=== PATIENT | female | born 1930 | race Caucasian/White ===

== ENCOUNTER 2016-09-19 | Outpatient (CLI) | payer MEDICARE, MEDICAID | END 2016-09-19 14:12 | disposition short-term general hospital (02) | CPT/HCPCS: A0170; A0425; A0426; A0429 ==

== ENCOUNTER 2016-09-19 | Outpatient (CLI) | payer MEDICAID, MEDICARE | END 2016-09-19 06:42 | disposition critical access hospital (66) | DX: M25.551 Pain in right hip (principal) ==

== ENCOUNTER 2016-09-19 06:52 | Emergency (ER) | payer MEDICARE ==
[2016-09-19] MEDS ORDERED: SODIUM CHLORIDE 0.9% 500 ML IV ONE ×2 (07:59→11:28)
[2016-09-19] MEDS ORDERED: ADENOSINE 6 MG/2 ML VIAL IVP ONE ×2 (08:56→08:57)
[2016-09-19] MEDS ORDERED: diltiaZEM INJ 5 MG/ML VIAL ONE ×2 (09:05→10:01)
[2016-09-19] MEDS ORDERED: diltiaZEM INJ 5 MG/ML VIAL IVP STA ×2 (09:09→09:58)
[2016-09-19] MEDS ORDERED: KETOROLAC 60 MG/2 ML VIAL IVP STA (09:25)
[2016-09-19] MEDS ORDERED: LORazepam 2 MG/ML SYRINGE IVP STA ×3 (09:25→13:46)
[2016-09-19] MEDS ORDERED: ADENOSINE 6 MG/2 ML VIAL IVP STA (09:26)
[2016-09-19] MEDS ORDERED: KETOROLAC 30 MG/ML VIAL ONE (09:31)
[2016-09-19] MEDS ORDERED: LORazepam 2 MG/ML SYRINGE ONE ×2 (09:31→13:37)
[2016-09-19] MEDS ORDERED: diltiaZEM INJ 125 MG in DEXTROSE 5% 100 ML IV STA (11:28)
== END 2016-09-19 14:17 | disposition short-term general hospital (02) ==
DX: I48.91 Unspecified atrial fibrillation (principal); S72.001A Fracture of unspecified part of neck of right femur, initial encounter for closed fracture; X58.XXXA Exposure to other specified factors, initial encounter; M79.7 Fibromyalgia
CPT/HCPCS: 36415; 51702; 71020; 73502; 80053; 81001; 83605; 83690; 84484; 85025; 87040; 93005; 96361; 96365; 96366; 96375; 96376; 99285; J0153; J2060

== ENCOUNTER 2016-11-28 03:28 | Outpatient (CLI) | payer MEDICARE, MEDICAID | END 2016-11-28 23:59 | disposition critical access hospital (66) | DX: R42 Dizziness and giddiness (principal); R68.84 Jaw pain | CPT/HCPCS: A0425; A0429 ==

== ENCOUNTER 2016-11-28 03:37 | Emergency (ER) | payer MEDICARE, MEDICAID ==
[2016-11-28] MEDS ORDERED: MECLIZINE 12.5 MG TABLET PO STA (04:10)
[2016-11-28] MEDS ORDERED: MECLIZINE 12.5 MG TABLET PO ONE (04:13)
[2016-11-28] MEDS ORDERED: IOPAMIDOL-300 100 ML VIAL IVP ONE (06:15)
== END 2016-11-28 07:58 | disposition home or self-care (01) ==
DX: R42 Dizziness and giddiness (principal); I71.4 Abdominal aortic aneurysm, without rupture; I48.91 Unspecified atrial fibrillation; M06.9 Rheumatoid arthritis, unspecified; Z79.82 Long term (current) use of aspirin
CPT/HCPCS: 36415; 70450; 70496; 70498; 80048; 81001; 84484; 85025; 93005; 93010; 99284; 99285; A9270; Q9967

== ENCOUNTER 2017-01-18 10:56 | Emergency (ER) | payer MEDICARE, MEDICAID ==
--- NOTE | 2017-01-18 11:34 | ED Physician Documentation ---
PD HPI HEAD INJURY - Stated complaint Stated Complaint: GLF/FACE INJ - Chief complaint Chief Complaint: Trauma Hd/Nk - History obtained from History obtained from: Patient (she says her right eyebrown lac to clean), Family - History of Present Illness Mechanism of head injury: Fell (she says she does not like her walker nor cane, she stumbled and did not catch herself from falling and struck right eyebrow area on edge of furniture. EMS arrived and patient was fully alert.) Where head injury occurred: Home Location of injury: Right, Front (lateral eyebrow) Quality of pain: No: Pain, Throbbing Associated symptoms: No: LOC, AMS, Nausea / vomiting, Paresthesias Symptoms improve with: Rest Symptoms worsen with: No: Palpation, Movement Contributing factors: No: Anticoagulated, Intoxicated Similar symptoms before: Has not had sx before Recently seen: Not recently seen Review of Systems Constitutional: denies: Fever, Chills Nose: denies: Rhinorrhea / runny nose, Congestion Throat: denies: Sore throat Cardiac: denies: Chest pain / pressure Respiratory: denies: Cough GI: denies: Abdominal Pain, Vomiting, Diarrhea Skin: reports: Laceration (s) (right eyebrow, 1.8 cm laceration along skin lineds.). denies: Abrasion (s) Musculoskeletal: denies: Neck pain, Back pain Neurologic: denies: Altered mental status, Headache Endocrine: denies: Easy bruising / bleeding PD PAST MEDICAL HISTORY - Past Medical History Past Medical History: Yes Cardiovascular: Atrial fibrillation, Arrhythmia Neuro: Other Musculoskeletal: Fibromyalgia, Rheumatoid arthritis - Past Surgical History Past Surgical History: Yes Ortho: Hip replacement - Present Medications Home Medications: Ambulatory Orders Medication Instructions Recorded Confirmed Acetaminophen 2 tab PO Q6HR PRN 11/28/16 01/18/17 Amiodarone HCl 200 mg PO BID 11/28/16 01/18/17 Ascorbic Acid 1 tab PO DAILY 11/28/16 01/18/17 Aspirin 1 tab PO DAILY 11/28/16 01/18/17 Bisacodyl Supp [Dulcolax Supp] 10 mg RI DAILY PRN 11/28/16 01/18/17 Cholecalciferol (Vitamin D3) 1 tab PO DAILY 11/28/16 01/18/17 [Vitamin D3] Magnesium Hydroxide [Milk of 30 ml PO DAILY PRN 11/28/16 01/18/17 Magnesia] Meclizine [Antivert] 25 mg PO Q6H PRN #20 tablet 11/28/16 01/18/17 Metoprolol Tartrate 12.5 mg PO BID 11/28/16 01/18/17 Vitamin B Complex 1 cap PO DAILY 11/28/16 01/18/17 - Allergies Allergies/Adverse Reactions: Allergies Allergy/AdvReac Type Severity Reaction Status Date / Time No Known Drug Allergies Allergy Verified 01/18/17 11:10 - Social History Does the pt smoke?: No Smoking Status: Never smoker Does the pt drink ETOH?: No Does the pt have substance abuse?: No - Family History Family history: reports: Non contributory - Immunizations Immunizations are current?: No Immunizations: No immun - POLST Patient has POLST: No PD ED PE NORMAL - Vitals Vital signs reviewed: Yes - General General: Alert and oriented X 3, No acute distress, Well developed/nourished - HEENT HEENT: PERRL, EOMI, Pharynx benign, Dentition benign, Other (right lateral eyebrow with 1.8 cm laceration with edges apart and mild bleeding. eye appears normal. ) - Neck Neck: Supple, no meningeal sign, No bony TTP, No adenopathy - Extremities Extremities: No edema, No calf tenderness / cord - Neuro Neuro: refractory repairer 2-12 intact, No motor deficit, No sensory deficit, Normal speech - Psych Psych: Normal mood, Normal affect Results - Vitals Vitals: Vital Signs - 24 hr 01/18/17 01/18/17 11:03 13:16 Temperature 36.4 C L Heart Rate 59 L 54 L Respiratory 18 18 Rate Blood Pressure 157/72 H 148/51 H O2 Saturation 96 96 Oxygen O2 Source Room air Procedures - Laceration (location) right lateral eyebrow Length in cm: 1.8 Wound type: Linear, Into subcut fat, Clean Neurovascular status: Sensory intact, Motor intact, Vascular intact Anesthesia: Lidocaine 1% with epi Wound Preparation: Irrigated copiously NS. No: FB identified Deep layer closure: Vicryl Skin layer closure: Running, Size #-0 - enter number (5), Sutures - enter # (5) Other: Patient tolerated well, No complications, Neurovascular intact, Tetanus UTD Complexity: Simple PD MEDICAL DECISION MAKING - ED course Complexity details: considered differential (no concussive smymptoms. Not on blood thinners. Sutures of right lateral eyebrow area. She is still looking good.), d/w patient, d/w family (daughter and son-in-law, who wanted info about getting care for patient during day at times as they are having to wath) Departure - Departure Disposition: 01 Home, Self Care Clinical Impression: Fall from slip, trip, or stumble Qualifiers: Encounter type: initial encounter Qualified Code(s): W01.0XXA - Fall on same level from slipping, tripping and stumbling without subsequent striking against object, initial encounter Laceration of eyebrow, right Qualifiers: Encounter type: initial encounter Qualified Code(s): S01.111A - Laceration without foreign body of right eyelid and periocular area, initial encounter Condition: Stable Record reviewed to determine appropriate education?: Yes Instructions: ED Laceration Facial Sutr Tape Follow-Up: Sanjeev Mcallister MD [Primary Care Provider] - Comments: It is okay to wash and shower. Clean off the wound twice a day with soap and water, or peroxide and water. Apply some antibiotic ointment to it to keep it moist. Also to watch for signs of infection such as purulence, redness or increasing pain. Return to your primary care or the ER at the specified time for suture removal. Suture removal one week. Water Treatment Operator gave information regarding home help resources if you feel they would be helpful. At least one of your blood pressure readings in the ER today was elevated above the normal level. If you have diagnosed high blood pressure in the past, please be sure you are taking your BP medications and eating low salt diet. If you do not have know high BP, then being high today does not mean it is a snf issue. It might be reactively high to the situation that has you here. You should follow up with your primary care to have the blood pressure checked again in the next few days/week or so to see if it is persistently high. If so, then you may need medication or changes in diet/lifestyle to treat it. Discharge Date/Time: 01/18/17 13:44
[2017-01-18 13:16] VITALS: BP 148/51
== END 2017-01-18 13:44 | disposition home or self-care (01) ==
LOC: ED 10:56
DX: S01.111A Laceration without foreign body of right eyelid and periocular area, initial encounter (principal); W01.198A Fall on same level from slipping, tripping and stumbling with subsequent striking against other object, initial encounter; Y92.019 Unspecified place in single-family (private) house as the place of occurrence of the external cause; I48.91 Unspecified atrial fibrillation; M79.7 Fibromyalgia; M06.9 Rheumatoid arthritis, unspecified; Z79.82 Long term (current) use of aspirin
CPT/HCPCS: 12011; 99282; 99283

== ENCOUNTER 2017-04-28 22:26 | Outpatient (CLI) | payer MEDICARE, MEDICAID | END 2017-04-28 22:27 | disposition critical access hospital (66) | LOC: EMS 22:26 | PROVIDERS: ATTEND Surgery | DX: R42 Dizziness and giddiness (principal) | CPT/HCPCS: A0425; A0429 ==

== ENCOUNTER 2017-04-28 22:36 | Emergency (ER) | payer MEDICARE, MEDICAID ==
[2017-04-28] MEDS ORDERED: DEXAMETHASONE 10 MG/ML VIAL PO STA (23:06)
[2017-04-28] MEDS ORDERED: MECLIZINE 12.5 MG TABLET PO STA (23:06)
[2017-04-28] MEDS ORDERED: DEXAMETHASONE 10 MG/ML VIAL ONE (23:15)
[2017-04-28] MEDS ORDERED: MECLIZINE 12.5 MG TABLET PO ONE (23:15)
[2017-04-28 23:25] LABS: BASOPHILS % (AUTO) 0.7 %; EOSINOPHILS # (AUTO) 0.1 10^3/uL (0.0-0.7); EOSINOPHILS % (AUTO) 2.5 %; HCT - HEMATOCRIT 35.6 % (37.0-47.0); HGB - HEMOGLOBIN 11.7 g/dL (12.0-16.0); LYMPHOCYTES % (AUTO) 16.6 %; MEAN CORPUSCULAR HEMOGLOBIN 26.3 pg (27.0-31.0); MEAN CORPUSCULAR VOLUME 79.7 fL (81.0-99.0); MEAN PLATELET VOLUME 8.8 fL (7.9-10.8); MONOCYTES # (AUTO) 0.7 10^3/uL (0.0-1.0); MONOCYTES % (AUTO) 11.2 %; NEUTROPHILS # (AUTO) 4.1 10^3/uL (1.5-6.6); RED BLOOD COUNT 4.46 10^6/uL (4.20-5.40); RED CELL DISTRIBUTION WIDTH 17.2 % (12.0-15.0)
[2017-04-28 23:35] LABS: ALBUMIN/GLOBULIN RATIO 1.2 (1.0-2.2); BILIRUBIN,TOTAL 0.4 mg/dL (0.2-1.0); CALCIUM 9.1 mg/dL (8.5-10.3); CREATININE 0.8 mg/dL (0.4-1.0); MAGNESIUM 2.2 mg/dL (1.7-2.8); POTASSIUM 4.7 mmol/L (3.5-5.0); TOTAL PROTEIN 6.9 g/dL (6.7-8.2)
[2017-04-29 00:29] LABS: BILIRUBIN,URINE NEGATIVE (NEGATIVE)
[2017-04-29 00:30] LABS: UA CHARGE (STRIP ONLY) YES; UR CULTURE IF IND NOT INDICATED
--- NOTE | 2017-04-29 00:42 | ED Physician Documentation ---
PD HPI URI - Stated complaint Stated Complaint: dizzy - Chief complaint Chief Complaint: Cardiac - History obtained from History obtained from: Patient, Family, EMS - History of Present Illness Timing - onset: Yesterday Timing duration: Minutes Timing details: Abrupt onset, Intermittant (onset of dizziness when got up from sitting yesterday, worse with looking up and head movement. Improved some during day and now had dizziness again when got up this evening. Had feeling of vertigo/room spinning, worse with head movement/body position, better with lying still. No focal weakness, no visual loss; able to talk clearly and not noted ataxic on movements.) Associated symptoms: Nasal congestion, Rhinorrhea (for several days), NVD (some nausea with the dizziness but no vomiting.). No: Fever, Sore throat, Dry cough Contributing factors: No: Sick contact, Travel, Immunocompromised Improves by: Rest Worsened by: Activity Similar symptoms before: Has not had sx before Recently seen: Clinic (had some dysuria and seen in office initially Rx with Macrobid, without improvement, then changed to Bactrim twice daily 3 days ago and feeling better.) Review of Systems Constitutional: denies: Fever, Chills Eyes: denies: Loss of vision, Decreased vision Ears: denies: Loss of hearing, Tinnitus/ringing Nose: reports: Rhinorrhea / runny nose, Congestion Throat: denies: Sore throat Respiratory: denies: Cough Skin: denies: Rash, Lesions Neurologic: denies: Focal weakness, Numbness, Difficulty speaking, Near syncope , Headache, Head injury PD PAST MEDICAL HISTORY - Past Medical History Cardiovascular: Atrial fibrillation, Arrhythmia Neuro: None, Other Musculoskeletal: Fibromyalgia, Rheumatoid arthritis - Past Surgical History Past Surgical History: Yes Ortho: Hip replacement - Present Medications Home Medications: Ambulatory Orders Medication Instructions Recorded Confirmed Acetaminophen 2 tab PO Q6HR PRN 11/28/16 01/18/17 Amiodarone HCl 200 mg PO BID 11/28/16 01/18/17 Ascorbic Acid 1 tab PO DAILY 11/28/16 01/18/17 Aspirin 1 tab PO DAILY 11/28/16 01/18/17 Bisacodyl Supp [Dulcolax Supp] 10 mg HI DAILY PRN 11/28/16 01/18/17 Cholecalciferol (Vitamin D3) 1 tab PO DAILY 11/28/16 01/18/17 [Vitamin D3] Magnesium Hydroxide [Milk of 30 ml PO DAILY PRN 11/28/16 01/18/17 Magnesia] Meclizine [Antivert] 25 mg PO Q6H PRN #20 tablet 11/28/16 01/18/17 Metoprolol Tartrate 12.5 mg PO BID 11/28/16 01/18/17 Vitamin B Complex 1 cap PO DAILY 11/28/16 01/18/17 Dexamethasone [Decadron] 4 mg PO DAILY #5 tablet 04/29/17 Meclizine [Antivert] 12.5 mg PO Q6H PRN #20 tablet 04/29/17 - Allergies Allergies/Adverse Reactions: Allergies Allergy/AdvReac Type Severity Reaction Status Date / Time No Known Drug Allergies Allergy Verified 01/18/17 11:10 - Social History Does the pt smoke?: No Smoking Status: Never smoker Does the pt drink ETOH?: No Does the pt have substance abuse?: No - Family History Family history: reports: Non contributory - Immunizations Immunizations are current?: No Immunizations: No immun - POLST Patient has POLST: No PD ED PE NORMAL - Vitals Vital signs reviewed: Yes - General General: Alert and oriented X 3, No acute distress, Well developed/nourished - HEENT HEENT: PERRL, EOMI (with some nystagmus to the left. ), Ears normal, Pharynx benign - Neck Neck: Supple, no meningeal sign, No adenopathy, No JVD, No bruit - Cardiac Cardiac: RRR, No murmur - Respiratory Respiratory: Clear bilaterally - Abdomen Abdomen: Soft, Non tender - Female Female : Deferred - Rectal Rectal: Deferred - Back Back: No CVA TTP - Derm Derm: Normal color, Warm and dry - Extremities Extremities: No tenderness to palpate, Normal ROM s pain, No edema, No calf tenderness / cord - Neuro Neuro: Alert and oriented X 3, fire pot operator 2-12 intact, No motor deficit, No sensory deficit, Normal speech, Other - Psych Psych: Normal mood, Normal affect Results - Vitals Vitals: Vital Signs - 24 hr 04/28/17 04/29/17 22:41 00:58 Temperature 36.9 C Heart Rate 67 63 Respiratory 16 16 Rate Blood Pressure 180/82 H 161/74 H O2 Saturation 98 98 Oxygen O2 Source Room air - Labs Labs: Laboratory Tests 04/28/17 04/28/17 04/29/17 23:16 23:16 00:16 WBC 6.0 RBC 4.46 Hgb 11.7 L Hct 35.6 L MCV 79.7 L MCH 26.3 L MCHC 33.0 RDW 17.2 H Plt Count 152 MPV 8.8 Neut # 4.1 Lymph # 1.0 L [place] # 0.7 Eos # 0.1 Baso # 0.0 Absolute Nucleated RBC 0.00 Nucleated RBCs 0.0 Sodium 138 Potassium 4.7 Chloride 101 Carbon Dioxide 29 Anion Gap 8.0 BUN 40 H Creatinine 0.8 Estimated GFR (MDRD) 68 L Glucose 109 H Calcium 9.1 Magnesium 2.2 Total Bilirubin 0.4 AST 27 ALT 26 Alkaline Phosphatase 50 Total Protein 6.9 Albumin 3.8 Globulin 3.1 Albumin/Globulin Ratio 1.2 Lipase 49 Urine Color YELLOW Urine Clarity CLEAR Urine pH 6.0 Ur Specific [place] 1.015 Urine Protein NEGATIVE Urine Glucose (UA) NEGATIVE Urine Ketones NEGATIVE Urine Occult Blood NEGATIVE Urine Nitrite NEGATIVE Urine Bilirubin NEGATIVE Urine Urobilinogen 0.2 (NORMAL) Ur Leukocyte Esterase NEGATIVE Ur Microscopic Review NOT INDICATED Urine Culture Comments NOT INDICATED PD MEDICAL DECISION MAKING - ED course Complexity details: considered differential (seems like peripheral vertigo with recent URI or allergy symptoms. No focal other weakness nor neurol symptoms.), d /w patient Departure - Departure Disposition: 01 Home, Self Care Clinical Impression: Vertigo URI (upper respiratory infection) Qualifiers: URI type: unspecified URI Qualified Code(s): J06.9 - Acute upper respiratory infection, unspecified Condition: Poor Instructions: ED Vertigo Unspecified Prescriptions: Meclizine [Antivert] 12.5 mg PO Q6H PRN #20 tablet PRN Reason: Vertigo Dexamethasone [Decadron] 4 mg PO DAILY #5 tablet Comments: Continue usual medications. Your urine looks clear so the Bactrim seems to be working. Use meclizine as needed for the dizziness. I think the dizziness is coming from congestion that you are having an effect on the inner ear. For your shoulder pain you have been having, use Tylenol 500 mg twice daily regularly. Follow-up with your primary care over the next few days. Discharge Date/Time: 04/29/17 00:59
[2017-04-29 00:58] VITALS: BP 161/74
== END 2017-04-29 00:59 | disposition home or self-care (01) ==
LOC: EDUNIT# → ED 22:36
DX: R42 Dizziness and giddiness (principal); J06.9 Acute upper respiratory infection, unspecified; I48.91 Unspecified atrial fibrillation; I49.9 Cardiac arrhythmia, unspecified; M79.7 Fibromyalgia; M06.9 Rheumatoid arthritis, unspecified; Z79.82 Long term (current) use of aspirin
CPT/HCPCS: 36415; 80053; 81003; 83690; 83735; 85025; 93005; 99283; A9270; 81001; 87086

== ENCOUNTER 2017-04-29 03:56 | Outpatient (CLI) | payer MEDICARE, MEDICAID | END 2017-04-29 03:57 | disposition EMS.NT | LOC: EMS 03:56 | PROVIDERS: ATTEND Surgery | DX: R42 Dizziness and giddiness (principal); W18.39XA Other fall on same level, initial encounter; Y92.003 Bedroom of unspecified non-institutional (private) residence as the place of occurrence of the external cause ==

== ENCOUNTER 2017-05-24 14:06 | Outpatient (CLI) | payer MEDICARE, MEDICAID ==
--- NOTE | 2017-05-25 08:46 | XRAY Report ---
TWO-VIEW CHEST: 05/24/2017 CLINICAL INDICATION: Upper respiratory infection. FINDINGS: Frontal and lateral views of the chest are compared to previous film of 09/19/2016. The c ardiac silhouette is mildly enlarged. A small left effusion is present, new from previous. No focal infiltrate or pneumothorax is seen. IMPRESSION: SMALL LEFT PLEURAL EFFUSION, NEW FROM PREVIOUS. JOB #: [id number] EXT JOB #:[id number]
== END 2017-05-24 14:07 | disposition home or self-care (01) ==
LOC: DI.N 14:06
PROVIDERS: ATTEND Nurse Practitioner Gerontology
DX: J90 Pleural effusion, not elsewhere classified (principal)
CPT/HCPCS: 71020

== ENCOUNTER 2017-09-13 11:23 | Emergency (ER) | payer MEDICARE, MEDICAID ==
[2017-09-13] MEDS ORDERED: OXYMETAZOLINE NASAL SPRAY NAS STA (11:47)
[2017-09-13] MEDS ORDERED: MECLIZINE 12.5 MG TABLET PO STA (11:47)
[2017-09-13] MEDS ORDERED: LIDOCAINE PATCH 5% TOP STA (11:49)
[2017-09-13] MEDS ORDERED: ACETAMINOPHEN 325 MG TABLET PO STA (11:49)
--- NOTE | 2017-09-13 11:53 | ED Physician Documentation ---
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 and pt advised to fup PMD for vascular referral (per daughter hasnt happened) a few weeks ago she grabbed something to prevent fall and inuured her right shoulder - it is still ruised and swollen and painful to move and now she also has nasal and chest congestion and generally feels ill which seems to be the reason she came in today denies JASON denies CP denies AP no NVD taking her meds PD PAST MEDICAL HISTORY - Past Medical History Past Medical History: Yes Cardiovascular: Atrial fibrillation, Arrhythmia Neuro: None, Other Musculoskeletal: Fibromyalgia, Rheumatoid arthritis - Past Surgical History Past Surgical History: Yes Ortho: Hip replacement - Present Medications Home Medications: Ambulatory Orders Medication Instructions Recorded Confirmed Acetaminophen 2 tab PO Q6HR PRN 11/28/16 01/18/17 Amiodarone HCl 200 mg PO BID 11/28/16 01/18/17 Ascorbic Acid 1 tab PO DAILY 11/28/16 01/18/17 Aspirin 1 tab PO DAILY 11/28/16 01/18/17 Bisacodyl Supp [Dulcolax Supp] 10 mg AL DAILY PRN 11/28/16 01/18/17 Cholecalciferol (Vitamin D3) 1 tab PO DAILY 11/28/16 01/18/17 [Vitamin D3] Magnesium Hydroxide [Milk of 30 ml PO DAILY PRN 11/28/16 01/18/17 Magnesia] Meclizine [Antivert] 25 mg PO Q6H PRN #20 tablet 11/28/16 01/18/17 Metoprolol Tartrate 12.5 mg PO BID 11/28/16 01/18/17 Vitamin B Complex 1 cap PO DAILY 11/28/16 01/18/17 Fluticasone [Flonase] 1 sprays JACOB BID PRN #1 bottle 09/13/17 Lidocaine Patch 5% [Lidoderm Patch] 1 each TOP DAILY PRN #10 patch 09/13/17 guaiFENesin/DEXTROMETHORPHAN 10 ml PO Q6H PRN #120 ml 09/13/17 [Robitussin Dm] - Allergies Allergies/Adverse Reactions: Allergies Allergy/AdvReac Type Severity Reaction Status Date / Time No Known Drug Allergies Allergy Verified 01/18/17 11:10 - Social History Does the pt smoke?: No Smoking Status: Never smoker Does the pt drink ETOH?: No Does the pt have substance abuse?: No - Immunizations Immunizations are current?: No Immunizations: No immun - POLST Patient has POLST: No PD ED PE NORMAL - Vitals Vital signs reviewed: Yes - General General: Alert and oriented X 3 - HEENT HEENT: Atraumatic, PERRL (cataract surgery), EOMI (no nytagmus), Other (raheem TMs grea, slightly dull, no bulging or purulent fluid) - Neck Neck: Other (mild diffuse TTP but no focal or bony TTP) - Cardiac Cardiac: RRR - Respiratory Respiratory: No respiratory distress, Clear bilaterally - Abdomen Abdomen: Soft, Non tender - Derm Derm: Other (old bruise right shoulder) - Extremities Extremities: Other (mild swell brusine and limited ROM R shoulder, MSV distal) - Neuro Neuro: Alert and oriented X 3, alternative dispute resolution mediator 2-12 intact, No motor deficit, No sensory deficit, Normal speech Eye Opening: Spontaneous Motor: Obeys Commands Verbal: Oriented GCS Score: 15 Results - Vitals Vitals: Vital Signs - 24 hr 09/13/17 09/13/17 11:34 12:28 Temperature 36.6 C Heart Rate 68 56 L Respiratory 16 16 Rate Blood Pressure 181/98 H 143/74 H O2 Saturation 96 100 Oxygen O2 Source Room air - EKG (time done) 1135 Rate: Rate (enter#) Rhythm: NSR QRS: LVH Ischemia: Q waves (inferior) - Labs Labs: Laboratory Tests 09/13/17 09/13/17 09/13/17 12:25 12:32 12:32 WBC 6.0 RBC 4.48 Hgb 12.1 Hct 36.7 L MCV 81.9 MCH 26.9 L MCHC 32.9 RDW 17.3 H Plt Count 151 MPV 9.2 Neut # 4.3 Lymph # 0.9 L [place] # 0.6 Eos # 0.2 Baso # 0.0 Absolute Nucleated RBC 0.01 Nucleated RBC % 0.1 Sodium 136 Potassium 4.5 Chloride 99 L Carbon Dioxide 26 Anion Gap 11.0 BUN 26 H Creatinine 0.7 Estimated GFR (MDRD) 79 L Glucose 94 Calcium 8.6 Troponin I Urine Color Urine Clarity Urine pH Ur Specific [place] Urine Protein Urine Glucose (UA) Urine Ketones Urine Occult Blood Urine Nitrite Urine Bilirubin Urine Urobilinogen Ur Leukocyte Esterase Urine RBC Urine WBC Ur Epithelial Cells Ur Squamous Epith Cells Amorphous Sediment Urine Bacteria Ur Microscopic Review Urine Culture Comments Influenza A (Rapid) Negative Influenza B (Rapid) Negative Influenza Types A,B Ag - 09/13/17 09/13/17 12:32 13:20 WBC RBC Hgb Hct MCV MCH MCHC RDW Plt Count MPV Neut # Lymph # Cooper # Eos # Baso # Absolute Nucleated RBC Nucleated RBC % Sodium Potassium Chloride Carbon Dioxide Anion Gap BUN Creatinine Estimated GFR (MDRD) Glucose Calcium Troponin I < 0.04 Urine Color YELLOW Urine Clarity CLEAR Urine pH 6.5 Ur Specific [place] 1.015 Urine Protein NEGATIVE Urine Glucose (UA) NEGATIVE Urine Ketones NEGATIVE Urine Occult Blood NEGATIVE Urine Nitrite NEGATIVE Urine Bilirubin NEGATIVE Urine Urobilinogen 0.2 (NORMAL) Ur Leukocyte Esterase TRACE H Urine RBC None Seen Urine WBC 4-5 Ur Epithelial Cells RARE Transitional Ur Squamous Epith Cells RARE Squamous Amorphous Sediment Rare Urine Bacteria Rare Ur Microscopic Review INDICATED Urine Culture Comments INDICATED Influenza A (Rapid) Influenza B (Rapid) Influenza Types A,B Ag - Rads (name of study) shoulder Radiology: See rad report (no acute) CT CS Radiology: See rad report (no acute, mod degen changes, partial demonstration small to mod size L pleural effusion, limited but again noted aortic aneurysm) CXR Radiology: See rad report (small L pelural effusion) Departure - Departure Disposition: 01 Home, Self Care Clinical Impression: Dizzy URI (upper respiratory infection) Qualifiers: URI type: unspecified URI Qualified Code(s): J06.9 - Acute upper respiratory infection, unspecified Condition: Good Instructions: ED Vertigo Unspecified, ED Upper Resp Infec No Abx Tx Follow-Up: Chelsey Frank ARNP [Primary Care Provider] - Prescriptions: Fluticasone [Flonase] 1 sprays JACOB BID PRN #1 bottle PRN Reason: congestion guaiFENesin/DEXTROMETHORPHAN [Robitussin Dm] 10 ml PO Q6H PRN #120 ml PRN Reason: Cough Lidocaine Patch 5% [Lidoderm Patch] 1 each TOP DAILY PRN #10 patch PRN Reason: Pain Comments: Nearly a year ago I saw you in the ER and the 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 The xray showed that you have a small amount of fluid in your lungs - too small an amount to drain - might be causing the chest congestion - please follow up with your PMD about that too Your labs were fine The flu swab was negative. Recommend you use flonase for congestion, robitussin DM for the cough, meclizine for the dizziness, a lidocaine patch up to 12 hr a day for your neck pain, and continue to work with PT for your shoulder
--- NOTE | 2017-09-13 12:36 | XRAY Report ---
EXAM: RIGHT SHOULDER RADIOGRAPHY EXAM DATE: 09/13/2017 12:26 PM. CLINICAL HISTORY: Bruised and swollen shoulder. COMPARISON: None. TECHNIQUE: 3 views. FINDINGS: Bones: No acute osseous abnormality. Joints: Moderate degenerative change. No dislocation. Soft tissues: No significant abnormality. IMPRESSION: No acute osseous abnormality. [facility] Referring Provider Line: [phone] SITE ID: [id number]
--- NOTE | 2017-09-13 12:40 | CT Preliminary Report ---
Exam: CT CERVICAL SPINE W/O IMPRESSION: 1. No acute abnormality of the cervical spine demonstrated. 2. Moderate degenerative disease, as detailed above. 3. Partial demonstration of a new small to moderate-sized left pleural effusion. 4. Very limited demonstration, on the oil scout view, of a pattern consistent with the patient's previous ly documented thoracic aortic aneurysm. If further characterization were indicated, chest CT angiogra phy would be recommended. [facility] SITE ID: [id number]
--- NOTE | 2017-09-13 12:40 | CT Report ---
EXAM: CT CERVICAL SPINE WITHOUT CONTRAST DATE: 09/13/2017 12:07 PM. HISTORY: Neck pain fall. COMPARISONS: No dedicated cervical spine CT comparison. Head and neck CT angiogram 11/28/2016. TECHNIQUE: Thin-section axial images were acquired of the cervical spine without contrast. Post-proce ssing: Coronal and sagittal reformats. Other: None. In accordance with CT protocol optimization, one or more of the following dose reduction techniques w ere utilized for this exam: automated exposure control, adjustment of mA and/or KV based on patient s ize, or use of iterative reconstructive technique. FINDINGS: Alignment: No significant scoliosis or spondylolisthesis. Bones: No fracture or acute bone lesion. Interspace Levels/Facets: Degenerative disk disease with disk space narrowing greatest at C4-C5 and less so at C5-C6 and C6-C7. Some vertebral body spurring results in mild anterior epidural encroachment at C5-C6. There is also anterior C1-C2 degenerative disease with associated presumably degenerative cystic focus within the b ase of the odontoid process. Moderate degenerative/hypertrophic facet disease on the left at C3-C4 an d C4-C5. Bony spurring results in moderate left C4-C5 and mild to moderate left C5-C6 bony neural for aminal narrowing. No high-grade bony canal stenosis. In general, the degenerative changes appear kandi lar to slightly progressed. Musculature: Normal. No fatty atrophy. Other: Partial demonstration of a new small to moderate-sized left pleural effusion. The lung apices are clear. Left thyroid hypodense nodule measuring approximately 1 cm this may been present previousl y but that area was somewhat obscured on the prior exam due to artifact. Approximate 1.1 cm right thy roid nodule is without change. By ACR white paper guidelines, no further evaluation is recommended. There is only partial demonstration of the aortic arch which demonstrates similar degree of ectasia w ith the visualized portion having a diameter 3.[address] angiogram demonstrated a leftward e xophytic aneurysm, at a level not included on the axial images on today's exam. The insulation installer view does d emonstrate density at the left periaortic/AP window region compatible with previously demonstrated an eurysm. If there is clinical concern, further evaluation by chest CT angiography would be recommended . IMPRESSION: 1. No acute abnormality of the cervical spine demonstrated. 2. Moderate degenerative disease, as detailed above. 3. Partial demonstration of a new small to moderate-sized left pleural effusion. 4. Very limited demonstration, on the insulation installer view, of a pattern consistent with the patient's previous ly documented thoracic aortic aneurysm. If further characterization were indicated, chest CT angiogra phy would be recommended. [facility] Referring Provider Line: [phone] SITE ID: [id number]
--- NOTE | 2017-09-13 12:40 | XRAY Preliminary Report ---
Exam: XR CHEST 2 VIEW X-RAY IMPRESSION: Small left pleural effusion. Otherwise no significant change from prior. [facility] SITE ID: [id number]
--- NOTE | 2017-09-13 12:40 | XRAY Report ---
EXAM: CHEST RADIOGRAPHY EXAM DATE: 09/13/2017 12:26 PM. CLINICAL HISTORY: Cough. COMPARISON: 09/19/2016. TECHNIQUE: 2 views. FINDINGS: Lungs/Pleura: Small left pleural effusion. No right pleural effusion. No pneumothorax. No focal conso lidation is evident. Mediastinum: Enlargement of the cardiac silhouette and tortuous, atherosclerotic thoracic aorta are s imilar to prior. Other: None. IMPRESSION: Small left pleural effusion. Otherwise no significant change from prior. [facility] Referring Provider Line: [phone] SITE ID: [id number]
[2017-09-13 12:57] LABS: CALCIUM 8.6 mg/dL (8.5-10.3); CREATININE 0.7 mg/dL (0.4-1.0)
[2017-09-13 13:31] LABS: BILIRUBIN,URINE NEGATIVE (NEGATIVE); CLARITY,URINE CLEAR (CLEAR); GLUCOSE, URINE (UA) NEGATIVE (NEGATIVE); KETONES,URINE (UA) NEGATIVE (NEGATIVE); LEUKOCYTE ESTERASE, URINE TRACE (NEGATIVE); NITRITE,URINE NEGATIVE (NEGATIVE); OCCULT BLOOD,URINE NEGATIVE (NEGATIVE); PH,URINE 6.5 PH (5.0-7.5); PROTEIN,URINE NEGATIVE (NEGATIVE); UROBILINOGEN,URINE 0.2 (NORMAL) E.U./dL (NORMAL)
[2017-09-13 13:38] LABS: BASOPHILS % (AUTO) 0.6 %; EOSINOPHILS # (AUTO) 0.2 10^3/uL (0.0-0.7); EOSINOPHILS % (AUTO) 2.7 %; HGB - HEMOGLOBIN 12.1 g/dL (12.0-16.0); LYMPHOCYTES # (AUTO) 0.9 10^3/uL (1.5-3.5); LYMPHOCYTES % (AUTO) 15.6 %; MEAN CORPUSCULAR HEMOGLOBIN 26.9 pg (27.0-31.0); MEAN CORPUSCULAR HGB CONC 32.9 g/dL (32.0-36.0); MEAN CORPUSCULAR VOLUME 81.9 fL (81.0-99.0); MEAN PLATELET VOLUME 9.2 fL (7.9-10.8); MONOCYTES # (AUTO) 0.6 10^3/uL (0.0-1.0); NEUTROPHILS # (AUTO) 4.3 10^3/uL (1.5-6.6); NEUTROPHILS % (AUTO) 71.1 %; PLT - PLATELET COUNT 151 10^3/uL (130-450); RED BLOOD COUNT 4.48 10^6/uL (4.20-5.40); RED CELL DISTRIBUTION WIDTH 17.3 % (12.0-15.0)
[2017-09-13 14:06] LABS: BACTERIA,URINE Rare /HPF (None Seen); EPITHELIAL CELLS,UR RARE Transitional /HPF (<= Few); RBC,URINE None Seen /HPF (0-5); SQUAMOUS EPITHELIAL CELL,UR RARE Squamous (<= Few)
[2017-09-13 14:07] LABS: AMORPHOUS SEDIMENT,UR Rare /LPF
[2017-09-13 14:30] VITALS: BP 136/77
== END 2017-09-13 14:52 | disposition home or self-care (01) ==
LOC: ED 11:23
DX: R42 Dizziness and giddiness (principal); J06.9 Acute upper respiratory infection, unspecified; R94.31 Abnormal electrocardiogram [ECG] [EKG]; I71.2 Thoracic aortic aneurysm, without rupture; M06.9 Rheumatoid arthritis, unspecified; Z96.649 Presence of unspecified artificial hip joint; Z79.82 Long term (current) use of aspirin
CPT/HCPCS: 36415; 71046; 72125; 73030; 80048; 81001; 84484; 85025; 87086; 87275; 87276; 99283; 99284; A9270; 81003

== ENCOUNTER 2018-03-02 00:54 | Emergency (ER) | payer MEDICARE, MEDICAID ==
[2018-03-02] MEDS ORDERED: ACETAMINOPHEN 500 MG TABLET PO STA (01:28)
--- NOTE | 2018-03-02 01:28 | ED Physician Documentation ---
History of Present Illness - Stated complaint Stated Complaint: GLF/LF SIDE BACK/RIB PX - Chief complaint Chief Complaint: General - History obtained from History obtained from: Patient, Friend - History of Present Illness Timing: Today, How many hours ago (1) Pain level max: 4 Pain level now: 3 Improved by: rest Worsened by: movement - Additonal information Additional information: Patient is an 87-year-old female who tripped and fell tonight landing on her buttocks. Now having pain to the posterior left ribs. No neck or head pain. Did not strike her head. No loss of consciousness. No vomiting. No abdominal pain. No lower extremity or hip pain. Review of Systems Constitutional: denies: Fever, Chills Ears: denies: Ear pain, Drainage/discharge Nose: denies: Congestion Throat: denies: Sore throat Cardiac: denies: Chest pain / pressure Respiratory: denies: Dyspnea, Cough, Hemoptysis, Wheezing GI: denies: Nausea, Vomiting Skin: denies: Rash Musculoskeletal: denies: Neck pain, Back pain Neurologic: denies: Focal weakness, Numbness, Headache PD PAST MEDICAL HISTORY - Past Medical History Cardiovascular: Atrial fibrillation, Arrhythmia Musculoskeletal: Fibromyalgia, Rheumatoid arthritis - Past Surgical History Past Surgical History: Yes Ortho: Hip replacement - Present Medications Home Medications: Ambulatory Orders Medication Instructions Recorded Confirmed Acetaminophen 2 tab PO Q6HR PRN 11/28/16 01/18/17 Amiodarone HCl 200 mg PO BID 11/28/16 01/18/17 Ascorbic Acid 1 tab PO DAILY 11/28/16 01/18/17 Aspirin 1 tab PO DAILY 11/28/16 01/18/17 Bisacodyl Supp [Dulcolax Supp] 10 mg [place] DAILY PRN 11/28/16 01/18/17 Cholecalciferol (Vitamin D3) 1 tab PO DAILY 11/28/16 01/18/17 [Vitamin D3] Magnesium Hydroxide [Milk of 30 ml PO DAILY PRN 11/28/16 01/18/17 Magnesia] Meclizine [Antivert] 25 mg PO Q6H PRN #20 tablet 11/28/16 01/18/17 Metoprolol Tartrate 12.5 mg PO BID 11/28/16 01/18/17 Vitamin B Complex 1 cap PO DAILY 11/28/16 01/18/17 Fluticasone [Flonase] 1 sprays JACOB BID PRN #1 bottle 09/13/17 Lidocaine Patch 5% [Lidoderm Patch] 1 each TOP DAILY PRN #10 patch 09/13/17 guaiFENesin/DEXTROMETHORPHAN 10 ml PO Q6H PRN #120 ml 09/13/17 [Robitussin Dm] - Allergies Allergies/Adverse Reactions: Allergies Allergy/AdvReac Type Severity Reaction Status Date / Time No Known Drug Allergies Allergy Verified 03/02/18 01:11 - Social History Does the pt smoke?: No Smoking Status: Never smoker Does the pt drink ETOH?: No Does the pt have substance abuse?: No - Immunizations Immunizations are current?: No Immunizations: No immun - POLST Patient has POLST: No PD ED PE NORMAL - Vitals Vital signs reviewed: Yes - General General: Alert and oriented X 3, No acute distress - HEENT HEENT: Atraumatic, PERRL, Ears normal, Moist mucous membranes, Pharynx benign - Neck Neck: Supple, no meningeal sign, No bony TTP, Other (FROM without pain.) - Cardiac Cardiac: RRR, Strong equal pulses - Respiratory Respiratory: No respiratory distress, Clear bilaterally - Abdomen Abdomen: Soft, Non tender, Non distended - Back Back: No spinal TTP - Derm Derm: Warm and dry - Extremities Extremities: No deformity, Normal ROM s pain, Other (TTP over L posterior ribs, approx 8-9. no crepitus. 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 2. Small to moderate left pleural effusion with associated left basilar atelectasis. ) PD MEDICAL DECISION MAKING - ED course Complexity details: reviewed results, re-evaluated patient, considered differential, d/w patient, d/w family ED course: Patient is an 87-year-old female who presents to the emergency department after a fall. No head or neck pain. No acute findings on x-ray other than a possible nondisplaced left sixth rib fracture, though this appears to be anterior and she is not tender at that spot. She also has a left-sided pleural effusion, this appears to been present since September, though increasing in size. We will have her follow-up with her doctor regarding this. Pain controlled with Tylenol. Incentive spirometer given. No other acute injuries. Patient counseled regarding signs and symptoms for which I believe and urgent re-evaluation would be necessary. Patient with good understanding of and agreement to plan and is comfortable going home at this time This document was made in part using voice recognition software. While efforts are made to proofread this document, sound alike and grammatical errors may occur. - Sepsis Event Vital Signs: Vital Signs - 24 hr 03/02/18 03/02/18 01:06 03:00 Temperature 36.5 C Heart Rate 61 67 Respiratory 17 16 Rate Blood Pressure 152/133 H 195/117 H O2 Saturation 98 96 Oxygen O2 Source Room air Departure - Departure Disposition: 01 Home, Self Care Clinical Impression: Pleural effusion on left Contusion of rib on left side Qualifiers: Encounter type: initial encounter Qualified Code(s): S20.212A - Contusion of left front wall of thorax, initial encounter Condition: Good Instructions: ED Effusion Pleural, ED Contusion Vs Minor Fx Rib Follow-Up: Provider,Other [Primary Care Provider] - Within 1 week Comments: Return if you worsen. You can use motrin or tylenol as needed for pain. Discharge Date/Time: 03/02/18 03:19
--- NOTE | 2018-03-02 02:21 | XRAY Report ---
Procedure Date: 03/02/2018 Accession Number: [id number] / [id number] Procedure: XR - Ribs w/PA Chest LT CPT Code: FULL RESULT: EXAM: LEFT RIB RADIOGRAPHY EXAM DATE: 03/02/2018 02:06 AM. CLINICAL HISTORY: L posterior rib pain s/p fall. COMPARISON: CHEST 2 VIEW 09/13/2017. TECHNIQUE: 1 view of the chest and 3 views of the ribs. FINDINGS: Bones: Osteopenia. Possible nondisplaced anterior left sixth rib fracture. No other acute fracture identified. Lungs: Zwrmy-[id number] left pleural effusion. Associated left basilar atelectasis. Right lung is grossly clear. No pneumothorax identified. Mediastinum: Heart size normal to upper normal. Mitral annulus calcification. Tortuous atherosclerotic aorta. Other: Mild scoliosis. IMPRESSION: 1. Osteopenia with possible nondisplaced left sixth rib fracture. 2. Small to moderate left pleural effusion with associated left basilar atelectasis. [facility]
[2018-03-02 03:16] VITALS: BP 195/117
== END 2018-03-02 03:19 | disposition home or self-care (01) ==
LOC: ED 00:54
DX: S20.212A Contusion of left front wall of thorax, initial encounter (principal); W01.0XXA Fall on same level from slipping, tripping and stumbling without subsequent striking against object, initial encounter; J90 Pleural effusion, not elsewhere classified; I48.91 Unspecified atrial fibrillation; I49.9 Cardiac arrhythmia, unspecified; M79.7 Fibromyalgia; M06.9 Rheumatoid arthritis, unspecified; Z79.82 Long term (current) use of aspirin
CPT/HCPCS: 71101; 99283; A9270

== ENCOUNTER 2018-09-06 10:31 | Emergency (ER) | payer MEDICARE, MEDICAID ==
[2018-09-06 11:42] LABS: BILIRUBIN,URINE NEGATIVE (NEGATIVE); GLUCOSE, URINE (UA) NEGATIVE (NEGATIVE); KETONES,URINE (UA) NEGATIVE (NEGATIVE); LEUKOCYTE ESTERASE, URINE SMALL (NEGATIVE); NITRITE,URINE NEGATIVE (NEGATIVE); OCCULT BLOOD,URINE TRACE-LYSE (NEGATIVE); PROTEIN,URINE NEGATIVE (NEGATIVE); UROBILINOGEN,URINE 0.2 (NORMAL) E.U./dL (NORMAL)
[2018-09-06 11:44] LABS: CLARITY,URINE CLEAR (CLEAR)
[2018-09-06 11:52] LABS: RBC,URINE 0-5 /HPF (0-5)
[2018-09-06 11:53] LABS: BACTERIA,URINE Rare /HPF (None Seen); MUCUS,URINE Few Strands; SQUAMOUS EPITHELIAL CELL,UR FEW Squamous (<= Few)
[2018-09-06 11:56] LABS: BASOPHILS % (AUTO) 0.6 %; EOSINOPHILS # (AUTO) 0.1 10^3/uL (0.0-0.7); EOSINOPHILS % (AUTO) 1.7 %; HGB - HEMOGLOBIN 13.5 g/dL (12.0-16.0); LYMPHOCYTES # (AUTO) 0.6 10^3/uL (1.5-3.5); LYMPHOCYTES % (AUTO) 10.8 %; MEAN CORPUSCULAR HGB CONC 33.5 g/dL (32.0-36.0); MEAN CORPUSCULAR VOLUME 83.6 fL (81.0-99.0); MEAN PLATELET VOLUME 9.6 fL (7.9-10.8); MONOCYTES # (AUTO) 0.5 10^3/uL (0.0-1.0); MONOCYTES % (AUTO) 9.7 %; NEUTROPHILS # (AUTO) 4.1 10^3/uL (1.5-6.6); NEUTROPHILS % (AUTO) 77.2 %; PLT - PLATELET COUNT 148 10^3/uL (130-450); RED BLOOD COUNT 4.83 10^6/uL (4.20-5.40); RED CELL DISTRIBUTION WIDTH 16.2 % (12.0-15.0); WHITE BLOOD COUNT 5.3 x10^3/uL (4.8-10.8)
--- NOTE | 2018-09-06 11:58 | ED Physician Documentation ---
History of Present Illness - Stated complaint Stated Complaint: HEART PALPITATIONS - Chief complaint Chief Complaint: General - History obtained from History obtained from: Patient, Caregiver - History of Present Illness Timing: Prior to arrival - Additonal information Additional information: The patient is a pleasant 88-year-old female who presents with palpitations that started during the night and lasted for a few hours this morning before resolving spontaneously just prior to arrival in the emergency department. She denies any associated chest pain, shortness of breath, or lightheadedness. She denies fever, cough, nausea or vomiting. She has a history of paroxysmal dysrhythmia for which she is treated with metoprolol and amiodarone. On further review of systems, she reports dysuria for the past 2 weeks. Review of Systems Constitutional: denies: Fever Ears: denies: Tinnitus/ringing Nose: denies: Congestion Throat: denies: Sore throat Cardiac: reports: Palpitations. 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 : None HEENT: None Psych: Depression, Anxiety Musculoskeletal: Fibromyalgia, Rheumatoid arthritis Derm: None - Past Surgical History Past Surgical History: Yes Ortho: Hip replacement HEENT: Tonsil/Adenoidectomy - Present Medications Home Medications: Ambulatory Orders Medication Instructions Recorded Confirmed Acetaminophen 2 tab PO Q6HR PRN 11/28/16 09/06/18 Amiodarone HCl 200 mg PO BID 11/28/16 09/06/18 Ascorbic Acid 1 tab PO DAILY 11/28/16 09/06/18 Aspirin 1 tab PO DAILY 11/28/16 09/06/18 Cholecalciferol (Vitamin D3) 1 tab PO DAILY 11/28/16 09/06/18 [Vitamin D3] Metoprolol Tartrate 12.5 mg PO BID 11/28/16 09/06/18 Vitamin B Complex 1 cap PO DAILY 11/28/16 09/06/18 Nitrofurantoin Monohyd/M-Cryst 100 mg PO BID #10 capsule 09/06/18 [Macrobid 100 mg Capsule] Phenazopyridine HCl [Pyridium] 200 mg PO TID PRN #6 tablet 09/06/18 - Allergies Allergies/Adverse Reactions: Allergies Allergy/AdvReac Type Severity Reaction Status Date / Time No Known Drug Allergies Allergy Verified 09/06/18 10:47 - Social History Does the pt smoke?: No Smoking Status: Never smoker Does the pt drink ETOH?: No Does the pt have substance abuse?: No - Immunizations Immunizations are current?: No Immunizations: No immun - POLST Patient has POLST: No PD ED PE NORMAL - Vitals Vital signs reviewed: Yes (initially hypertensive.) - General General: Alert and oriented X 3, Well developed/nourished - HEENT HEENT: Atraumatic, Moist mucous membranes - Neck Neck: No adenopathy, No JVD - Cardiac Cardiac: RRR, Other (Harsh 3/6 systolic murmur.) - Respiratory Respiratory: No respiratory distress, Clear bilaterally - Abdomen Abdomen: Soft, Non tender - Back Back: No CVA TTP - Derm Derm: No rash - Extremities Extremities: No edema, No calf tenderness / cord - Neuro Neuro: Alert and oriented X 3, No motor deficit, No sensory deficit Results - Vitals Vitals: Vital Signs - 24 hr 09/06/18 09/06/18 10:40 12:47 Temperature 36.3 C L 36.6 C Heart Rate 69 63 Respiratory 18 22 Rate Blood Pressure 154/93 H 155/84 H O2 Saturation 98 98 Oxygen O2 Source Room air - EKG (time done) 10:41 Rate: Rate (enter#) (65) Rhythm: NSR, LAE QRS: LVH Ischemia: ST depression (consistent with LVH strain pattern.) Compare to prior EKG: Unchanged from prior EKG Computer interpretation: Agree with computer - Labs Labs: Microbiology 09/06/18 11:07 Urine Culture - Final Urine,Clean Catch Less Than 10,000 COLONIES/ML UROGENITAL DEIDRA Laboratory Tests 09/06/18 09/06/18 09/06/18 11:07 11:07 11:07 WBC 5.3 RBC 4.83 Hgb 13.5 Hct 40.4 MCV 83.6 MCH 28.0 MCHC 33.5 RDW 16.2 H Plt Count 148 MPV 9.6 Neut # (Auto) 4.1 Lymph # (Auto) 0.6 L [place] # (Auto) 0.5 Eos # (Auto) 0.1 Baso # (Auto) 0.0 Absolute Nucleated RBC 0.00 Nucleated RBC % 0.0 Sodium 141 Potassium 4.4 Chloride 104 Carbon Dioxide 28 Anion Gap 9.0 BUN 25 H Creatinine 0.7 Estimated GFR (MDRD) 79 L Glucose 106 H Calcium 9.0 Total Bilirubin 0.7 AST 25 ALT 19 Alkaline Phosphatase 41 L Troponin I Total Protein 6.9 Albumin 3.8 Globulin 3.1 Albumin/Globulin Ratio 1.2 Lipase 38 Urine Color YELLOW Urine Clarity CLEAR Urine pH 6.0 Ur Specific [place] 1.025 Urine Protein NEGATIVE Urine Glucose (UA) NEGATIVE Urine Ketones NEGATIVE Urine Occult Blood TRACE-LYSE Urine Nitrite NEGATIVE Urine Bilirubin NEGATIVE Urine Urobilinogen 0.2 (NORMAL) Ur Leukocyte Esterase SMALL H Urine RBC 0-5 Urine WBC 4-5 Ur Squamous Epith Cells FEW Squamous Urine Bacteria Rare Urine Mucus Few Strands Ur Microscopic Review INDICATED Urine Culture Comments INDICATED 09/06/18 11:07 WBC RBC Hgb Hct MCV MCH MCHC RDW Plt Count MPV Neut # (Auto) Lymph # (Auto) [place] # (Auto) Eos # (Auto) Baso # (Auto) Absolute Nucleated RBC Nucleated RBC % Sodium Potassium Chloride Carbon Dioxide Anion Gap BUN Creatinine Estimated GFR (MDRD) Glucose Calcium Total Bilirubin AST ALT Alkaline Phosphatase Troponin I < 0.04 Total Protein Albumin Globulin Albumin/Globulin Ratio Lipase Urine Color Urine Clarity Urine pH Ur Specific [place] Urine Protein Urine Glucose (UA) Urine Ketones Urine Occult Blood Urine Nitrite Urine Bilirubin Urine Urobilinogen Ur Leukocyte Esterase Urine RBC Urine WBC Ur Squamous Epith Cells Urine Bacteria Urine Mucus Ur Microscopic Review Urine Culture Comments PD MEDICAL DECISION MAKING - ED course Complexity details: reviewed old records, reviewed results, re-evaluated patient, considered differential, d/w patient, d/w family ED course: The patient's presentation is significant for transient palpitations, most likely due to paroxysmal atrial tachycardia. Her cardiac rhythm in the emergency department is normal sinus, without electrocardiographic evidence of ischemia. Troponin is normal. There is no clinical evidence of congestive heart failure. Urinalysis is positive for pyuria and bacteriuria. There is no clinical evidence to suggest pyelonephritis or sepsis. Treatment in the emergency department included administration of nitrofurantoin 100 mg orally, and Pyridium 200 mg orally. She is being discharged with prescriptions for both. I discussed with her and her caregiver the diagnosis, antibiotic treatment and outpatient follow-up, as well as potentially worrisome signs or symptoms that should prompt reevaluation in the emergency department. Departure - Departure Disposition: 01 Home, Self Care Clinical Impression: Heart palpitations UTI (urinary tract infection) Qualifiers: Urinary tract infection type: acute cystitis Hematuria presence: without hematuria Qualified Code(s): N30.00 - Acute cystitis without hematuria Condition: Stable Instructions: ED Palpitations, ED UTI Cystitis Female Follow-Up: Hayden Guerrier MD [Primary Care Provider] - Chelsey Frank ARNP [Credentialed Staff Provider] - Prescriptions: Nitrofurantoin Monohyd/M-Cryst [Macrobid 100 mg Capsule] 100 mg PO BID #10 capsule Phenazopyridine HCl [Pyridium] 200 mg PO TID PRN #6 tablet PRN Reason: dysuria Comments: Drink plenty of fluids, including cranberry juice. Take Macrobid twice daily as prescribed. You can use Pyridium as prescribed if needed for painful urination. You can use Tylenol or ibuprofen as needed for fever or discomfort. Follow up with your primary physician within 2 weeks. Call to schedule appointment. Return to the emergency department if you develop increasing abdominal pain, fever with shaking chills, persistent vomiting, or otherwise worsening symptoms. Discharge Date/Time: 09/06/18 13:25
[2018-09-06 12:04] LABS: ALBUMIN 3.8 g/dL (3.2-5.5); ALBUMIN/GLOBULIN RATIO 1.2 (1.0-2.2); BILIRUBIN,TOTAL 0.7 mg/dL (0.2-1.0); CREATININE 0.7 mg/dL (0.4-1.0); TOTAL PROTEIN 6.9 g/dL (6.7-8.2)
[2018-09-06] MEDS ORDERED: NITROFURANTOIN MACRO 100 MG CAPSULE PO STA (12:40)
[2018-09-06] MEDS ORDERED: PHENAZOPYRIDINE 100 MG TABLET PO STA (12:41)
[2018-09-06 13:07] VITALS: BP 155/84
== END 2018-09-06 13:25 | disposition home or self-care (01) ==
LOC: ED 10:31
DX: N30.00 Acute cystitis without hematuria (principal); R94.31 Abnormal electrocardiogram [ECG] [EKG]; Z96.649 Presence of unspecified artificial hip joint; Z79.82 Long term (current) use of aspirin
CPT/HCPCS: 36415; 80053; 81001; 83690; 84484; 85025; 87086; 93005; 99283; A9270; 81003

== ENCOUNTER 2018-10-02 10:25 | Emergency (ER) | payer MEDICARE, MEDICAID ==
[2018-10-02 11:21] LABS: BILIRUBIN,URINE NEGATIVE (NEGATIVE); GLUCOSE, URINE (UA) NEGATIVE (NEGATIVE); KETONES,URINE (UA) NEGATIVE (NEGATIVE); LEUKOCYTE ESTERASE, URINE NEGATIVE (NEGATIVE); NITRITE,URINE NEGATIVE (NEGATIVE); OCCULT BLOOD,URINE NEGATIVE (NEGATIVE); PH,URINE 5.5 PH (5.0-7.5); PROTEIN,URINE NEGATIVE (NEGATIVE); UROBILINOGEN,URINE 0.2 (NORMAL) E.U./dL (NORMAL)
[2018-10-02 11:29] LABS: CLARITY,URINE CLEAR (CLEAR)
--- NOTE | 2018-10-02 12:47 | ED Physician Documentation ---
PD HPI FEMALE - Stated complaint Stated Complaint: SIDE PX - Chief complaint Chief Complaint: Back Pain - History obtained from History obtained from: Patient, Family - History of Present Illness Timing - onset: How many weeks ago (1) Timing - duration: Weeks (1) Timing - details: Gradual onset, Still present Associated symptoms: Dysuria. No: Fever Similar symptoms before: Diagnosis (UTI) Recently seen: Emergency Dept (3 1/2 weeks ago, for heart palpitations, and had UTI as well. Rx with Macrobid. Seemed okay after that. Dysuria now for a week, worsening.) Review of Systems Constitutional: denies: Fever, Chills Nose: denies: Rhinorrhea / runny nose, Congestion Throat: denies: Sore throat Cardiac: reports: Palpitations. denies: Chest pain / pressure Respiratory: denies: Cough GI: reports: Abdominal Pain. denies: Nausea, Vomiting, Diarrhea : reports: Dysuria, Frequency. 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 : None HEENT: None Psych: Depression, Anxiety Musculoskeletal: Fibromyalgia, Rheumatoid arthritis Derm: None - Past Surgical History Past Surgical History: Yes Ortho: Hip replacement HEENT: Tonsil/Adenoidectomy - Present Medications Home Medications: Ambulatory Orders Medication Instructions Recorded Confirmed Acetaminophen 2 tab PO Q6HR PRN 11/28/16 09/06/18 Amiodarone HCl 200 mg PO BID 11/28/16 09/06/18 Ascorbic Acid 1 tab PO DAILY 11/28/16 09/06/18 Aspirin 1 tab PO DAILY 11/28/16 09/06/18 Cholecalciferol (Vitamin D3) 1 tab PO DAILY 11/28/16 09/06/18 [Vitamin D3] Metoprolol Tartrate 12.5 mg PO BID 11/28/16 09/06/18 Vitamin B Complex 1 cap PO DAILY 11/28/16 09/06/18 Nitrofurantoin Monohyd/M-Cryst 100 mg PO BID #10 capsule 09/06/18 [Macrobid 100 mg Capsule] Phenazopyridine HCl [Pyridium] 200 mg PO TID PRN #6 tablet 09/06/18 Cephalexin [Keflex] 500 mg PO TID #20 capsule 10/02/18 - Allergies Allergies/Adverse Reactions: Allergies Allergy/AdvReac Type Severity Reaction Status Date / Time No Known Drug Allergies Allergy Verified 09/06/18 10:47 - Social History Does the pt smoke?: No Smoking Status: Never smoker Does the pt drink ETOH?: No Does the pt have substance abuse?: No - Immunizations Immunizations are current?: No Immunizations: No immun - POLST Patient has POLST: No PD ED PE NORMAL - Vitals Vital signs reviewed: Yes - General General: Alert and oriented X 3, No acute distress, Well developed/nourished - HEENT HEENT: Moist mucous membranes, Pharynx benign - Neck Neck: Supple, no meningeal sign, No adenopathy - Cardiac Cardiac: RRR, No murmur - Respiratory Respiratory: Clear bilaterally - Abdomen Abdomen: Normal bowel sounds, Soft, Non distended, No organomegaly, Other (mild tenderness suprapubic area without guarding. ) - Female Female : Deferred - Rectal Rectal: Deferred - Back Back: No CVA TTP - Derm Derm: Normal color, Warm and dry, No rash - Extremities Extremities: No tenderness to palpate, Normal ROM s pain - Neuro Neuro: Alert and oriented X 3, No motor deficit, Normal speech Results - Vitals Vitals: Oxygen O2 Source Room air - Labs Labs: Laboratory Tests 10/02/18 10/02/18 10/02/18 11:05 13:20 13:20 WBC 6.4 RBC 4.59 Hgb 12.7 Hct 37.9 MCV 82.6 MCH 27.7 MCHC 33.5 RDW 16.1 H Plt Count 141 MPV 9.2 Neut # (Auto) 4.7 Lymph # (Auto) 0.8 L [place] # (Auto) 0.7 Eos # (Auto) 0.1 Baso # (Auto) 0.0 Absolute Nucleated RBC 0.00 Nucleated RBC % 0.0 Sodium 135 Potassium 4.1 Chloride 98 L Carbon Dioxide 27 Anion Gap 10.0 BUN 25 H Creatinine 0.6 Estimated GFR (MDRD) 94 Glucose 91 Calcium 8.9 Total Bilirubin 1.1 H AST 26 ALT 20 Alkaline Phosphatase 42 Total Protein 6.8 Albumin 4.0 Globulin 2.8 Albumin/Globulin Ratio 1.4 Lipase 34 Urine Color YELLOW Urine Clarity CLEAR Urine pH 5.5 Ur Specific [place] 1.025 Urine Protein NEGATIVE Urine Glucose (UA) NEGATIVE Urine Ketones NEGATIVE Urine Occult Blood NEGATIVE Urine Nitrite NEGATIVE Urine Bilirubin NEGATIVE Urine Urobilinogen 0.2 (NORMAL) Ur Leukocyte Esterase NEGATIVE Ur Microscopic Review NOT INDICATED Urine Culture Comments NOT INDICATED - Rads (name of study) abd/pelvic CT Radiology: Prelim report reviewed (no acute process), See rad report PD MEDICAL DECISION MAKING - ED course Complexity details: considered differential (urine is normal looking. She has symptoms c/w UTI. Consider inflammatory cystitis. Got CT abd to eval for hydro, diverticulitis, or other potential cause for flank pain and some pressure on bladder. However CT was normal. Presume UTI for now. ), d/w patient Departure - Departure Disposition: 01 Home, Self Care Clinical Impression: Dysuria, Flank pain Condition: Stable Record reviewed to determine appropriate education?: Yes Instructions: ED Dysuria Uncertain Cause Follow-Up: Hayden Guerrier MD [Primary Care Provider] - Prescriptions: Cephalexin [Keflex] 500 mg PO TID #20 capsule Comments: Your urine does not look like an obvious infection but you have the symptoms consistent with bladder infection so we will give you cephalexin antibiotic 3 times a day for a week. For the back pain, which I think is more musculoskeletal, use Tylenol 500 mg 4 times a day for the next week or so for the pain. Follow-up with your primary care if not improved over the next several days to week. Your CT scan did not show other obvious cause for your symptoms. Discharge Date/Time: 10/02/18 15:11
[2018-10-02 13:48] LABS: BASOPHILS % (AUTO) 0.6 %; EOSINOPHILS # (AUTO) 0.1 10^3/uL (0.0-0.7); EOSINOPHILS % (AUTO) 2.1 %; HGB - HEMOGLOBIN 12.7 g/dL (12.0-16.0); LYMPHOCYTES # (AUTO) 0.8 10^3/uL (1.5-3.5); LYMPHOCYTES % (AUTO) 12.9 %; MEAN CORPUSCULAR HEMOGLOBIN 27.7 pg (27.0-31.0); MEAN CORPUSCULAR HGB CONC 33.5 g/dL (32.0-36.0); MEAN CORPUSCULAR VOLUME 82.6 fL (81.0-99.0); MEAN PLATELET VOLUME 9.2 fL (7.9-10.8); MONOCYTES # (AUTO) 0.7 10^3/uL (0.0-1.0); NEUTROPHILS # (AUTO) 4.7 10^3/uL (1.5-6.6); NEUTROPHILS % (AUTO) 73.4 %; PLT - PLATELET COUNT 141 10^3/uL (130-450); RED BLOOD COUNT 4.59 10^6/uL (4.20-5.40); RED CELL DISTRIBUTION WIDTH 16.1 % (12.0-15.0); WHITE BLOOD COUNT 6.4 x10^3/uL (4.8-10.8)
[2018-10-02 14:01] LABS: ALBUMIN/GLOBULIN RATIO 1.4 (1.0-2.2); BILIRUBIN,TOTAL 1.1 mg/dL (0.2-1.0); CALCIUM 8.9 mg/dL (8.5-10.3); CREATININE 0.6 mg/dL (0.4-1.0); TOTAL PROTEIN 6.8 g/dL (6.7-8.2)
--- NOTE | 2018-10-02 14:15 | CT Report ---
Reason: lower abd/ flank pain for 1-2 weeks Procedure Date: 10/02/2018 Accession Number: [id number] / [id number] Procedure: CT - Abdomen/Pelvis WO CPT Code: FULL RESULT: EXAM: CT ABDOMEN AND PELVIS (CT KUB) EXAM DATE: 10/02/2018 01:56 PM. CLINICAL HISTORY: Lower abdomen/flank pain for 1-2 weeks. COMPARISONS: None. TECHNIQUE: Routine axial helical CT imaging was performed through the abdomen and pelvis without IV contrast. Reconstructions: Coronal and sagittal. In accordance with CT protocol optimization, one or more of the following dose reduction techniques were utilized for this exam: automated exposure control, adjustment of mA and/or KV based on patient size, or use of iterative reconstructive technique. FINDINGS: Lung Bases: Small left pleural effusion. Right Kidney/Ureter: No stones, hydronephrosis, or hydroureter. No perinephric fat stranding. Left Kidney/Ureter: No stones, hydronephrosis, or hydroureter. No perinephric fat stranding. Other Solid Organs: There is a 1.9 x 3.5 cm mass in the dome of the right liver, hypodense compared to surrounding parenchyma. A similar-appearing 1.5 x 1.2 cm hypodense lesion is seen in segment [place] on the left. The noncontrast spleen, adrenal glands and pancreas are unremarkable. Gallbladder/Bile Ducts: Unremarkable. Peritoneal Cavity: No free fluid, free air or anay adenopathy. Bowel is grossly unremarkable with the exception of diverticulosis. Pelvic Organs: Limited visualization of the pelvis due to streak artifact from the right total hip arthroplasty. Vasculature: Unremarkable. Other: None. IMPRESSION: No hydronephrosis or urinary calculi. Limited visualization of the ureterovesicular junctions in the pelvis. Hepatic lesions as described. Recommend characterization by CT or MRI liver mass protocol on a routine outpatient basis. [facility]
[2018-10-02] MEDS ORDERED: ACETAMINOPHEN 325 MG TABLET PO STA (14:16)
[2018-10-02] MEDS ORDERED: cephALEXin 250 MG CAPSULE PO STA (14:46)
[2018-10-02 15:11] VITALS: BP 135/71
== END 2018-10-02 15:11 | disposition home or self-care (01) ==
LOC: ED 10:25
DX: R30.0 Dysuria (principal); R10.9 Unspecified abdominal pain; M54.9 Dorsalgia, unspecified; Z79.82 Long term (current) use of aspirin
CPT/HCPCS: 36415; 74176; 80053; 81003; 83690; 85025; 99283; A9270; 81001; 87086

== ENCOUNTER 2018-10-11 02:07 | Outpatient (CLI) | payer MEDICARE, MEDICAID | END 2018-10-11 02:08 | disposition critical access hospital (66) | LOC: EMS 02:07 | PROVIDERS: ATTEND Surgery | DX: M54.5 Low back pain (principal); R30.9 Painful micturition, unspecified; R82.998 Other abnormal findings in urine | CPT/HCPCS: A0425; A0429 ==

== ENCOUNTER 2018-10-11 02:18 | Emergency (ER) | payer MEDICARE, MEDICAID ==
--- NOTE | 2018-10-11 02:25 | ED Physician Documentation ---
PD HPI BACK PAIN - Stated complaint Stated Complaint: LOW BACK PAIN - History obtained from History obtained from: Patient, EMS - History of Present Illness Timing - onset: How many weeks ago (2) Timing - duration: Weeks (2) Timing - details: Gradual onset, Still present, Waxing and waning Location: Lower, Right, Left Quality: Spasm, Sharp Associated symptoms: No: Fever, Weakness, Numbness, Incontinent of urine Improves with: Rest Worsened by: Movement, Twisting Contributing factors: No: Trauma Recently seen: Emergency Dept (seen a week ago with labs, UA and CT A/P. Mild UTI on UA. other labs and images were okay. She says she took the Keflex as directed. Had not really improved, and today with worse pain on movement.) Review of Systems Constitutional: denies: Fever, Chills, Myalgias Nose: denies: Rhinorrhea / runny nose, Congestion Throat: denies: Sore throat Respiratory: denies: Cough GI: denies: Abdominal Pain, Vomiting, Diarrhea : reports: Frequency. 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 : None HEENT: None Psych: Depression, Anxiety Musculoskeletal: Fibromyalgia, Rheumatoid arthritis Derm: None - Past Surgical History Past Surgical History: Yes Ortho: Hip replacement HEENT: Tonsil/Adenoidectomy - Present Medications Home Medications: Ambulatory Orders Medication Instructions Recorded Confirmed Acetaminophen 2 tab PO Q6HR PRN 11/28/16 09/06/18 Amiodarone HCl 200 mg PO BID 11/28/16 09/06/18 Ascorbic Acid 1 tab PO DAILY 11/28/16 09/06/18 Aspirin 1 tab PO DAILY 11/28/16 09/06/18 Cholecalciferol (Vitamin D3) 1 tab PO DAILY 11/28/16 09/06/18 [Vitamin D3] Metoprolol Tartrate 12.5 mg PO BID 11/28/16 09/06/18 Vitamin B Complex 1 cap PO DAILY 11/28/16 09/06/18 Nitrofurantoin Monohyd/M-Cryst 100 mg PO BID #10 capsule 09/06/18 [Macrobid 100 mg Capsule] Phenazopyridine HCl [Pyridium] 200 mg PO TID PRN #6 tablet 09/06/18 Cephalexin [Keflex] 500 mg PO TID #20 capsule 10/02/18 Hydrocodone/Acetaminophen [[place] 1 each PO Q6H PRN #15 tablet 10/11/18 5-325 Tablet] Naproxen 375 mg PO BID #15 tablet 10/11/18 - Allergies Allergies/Adverse Reactions: Allergies Allergy/AdvReac Type Severity Reaction Status Date / Time No Known Drug Allergies Allergy Verified 09/06/18 10:47 - Social History Does the pt smoke?: No Smoking Status: Never smoker Does the pt drink ETOH?: No Does the pt have substance abuse?: No - Immunizations Immunizations are current?: No Immunizations: No immun - POLST Patient has POLST: No PD ED PE NORMAL - Vitals Vital signs reviewed: Yes - General General: Alert and oriented X 3, Well developed/nourished, Other (seems in quick pain with ROM of the low back. Seems musculoskeletal. I do not see value in repeating CT/labs that were done a week ago without results. ) - Cardiac Cardiac: RRR, No murmur - Respiratory Respiratory: Clear bilaterally - Abdomen Abdomen: Soft, Non tender - Female Female : Deferred - Back Back: No CVA TTP, Other (some tender in mid to lower lumbar muscles, more to the left. ) - Derm Derm: Normal color, Warm and dry Results - Vitals Vitals: Vital Signs - 24 hr 10/11/18 10/11/18 02:22 02:27 Temperature 37.1 C Heart Rate 68 69 Respiratory 16 16 Rate Blood Pressure 153/91 H 153/91 H O2 Saturation 99 97 Oxygen O2 Source Room air PD MEDICAL DECISION MAKING - ED course Complexity details: reviewed results, considered differential (seems musculoskeletal. ), d/w patient Departure - Departure Disposition: 01 Home, Self Care Clinical Impression: Back pain Qualifiers: Back pain location: low back pain Chronicity: acute Back pain laterality: bilateral Sciatica presence: without sciatica Qualified Code(s): M54.5 - Low back pain Condition: Stable Record reviewed to determine appropriate education?: Yes Instructions: ED Low Back Pain Injury Prescriptions: Hydrocodone/Acetaminophen [[place] 5-325 Tablet] 1 each PO Q6H PRN #15 tablet PRN Reason: Pain Naproxen 375 mg PO BID #15 tablet Comments: Your urine looks clear today. I do not see need for further antibiotics. I presume your back pain is musculoskeletal. Treat it with naproxen twice daily with food for the next several days to week. Add Tylenol or hydrocodone if needed for pain. Take a daily stool softener so the medications did not find you up. Recheck with your primary care within a week or so, call for an appointment.
[2018-10-11] MEDS ORDERED: NAPROXEN 250 MG TABLET PO STA (02:46)
[2018-10-11] MEDS ORDERED: HYDROcod/ACETAM 5/325 MG TABLET PO STA (02:46)
[2018-10-11 04:24] LABS: BILIRUBIN,URINE NEGATIVE (NEGATIVE); GLUCOSE, URINE (UA) NEGATIVE (NEGATIVE); KETONES,URINE (UA) 15 mg/dL (NEGATIVE); LEUKOCYTE ESTERASE, URINE NEGATIVE (NEGATIVE); NITRITE,URINE NEGATIVE (NEGATIVE); OCCULT BLOOD,URINE NEGATIVE (NEGATIVE); PH,URINE 5.5 PH (5.0-7.5); PROTEIN,URINE NEGATIVE (NEGATIVE); UROBILINOGEN,URINE 0.2 (NORMAL) E.U./dL (NORMAL)
[2018-10-11 04:29] LABS: CLARITY,URINE CLEAR (CLEAR)
[2018-10-11 04:32] VITALS: BP 135/66
== END 2018-10-11 04:53 | disposition home or self-care (01) ==
LOC: EDUNIT# → EDBD → ED 02:18
DX: M54.5 Low back pain (principal)
CPT/HCPCS: 81003; 99283; A9270; 81001; 87086

== ENCOUNTER 2018-10-15 09:47 | Outpatient (CLI) | payer MEDICARE, MEDICAID | END 2018-10-15 09:48 | disposition critical access hospital (66) | LOC: EMS 09:47 | PROVIDERS: ATTEND Surgery | DX: M54.5 Low back pain (principal) | CPT/HCPCS: A0425; A0429 ==

== ENCOUNTER 2018-10-15 09:58 | Emergency (ER) | payer MEDICARE, MEDICAID ==
[2018-10-15] MEDS ORDERED: DEXAMETHASONE 10 MG/ML VIAL PO STA (12:05)
--- NOTE | 2018-10-15 12:23 | ED Physician Documentation ---
PD HPI BACK PAIN - Stated complaint Stated Complaint: BACK PX - Chief complaint Chief Complaint: Back Pain - History obtained from History obtained from: Patient, Family - History of Present Illness Timing - onset: How many weeks ago (2) Timing - duration: Weeks (2) Timing - details: Abrupt onset, Still present, Waxing and waning Location: Lower, Left Quality: Pain, Spasm, Sharp, Similar to prior episodes Associated symptoms: No: Fever, Weakness, Numbness, Incontinent of urine, Unable to urinate, Hematuria, Incontinent of stool Improves with: Rest, Position Worsened by: Movement, Twisting, Palpation Similar symptoms before: No diagnosis Recently seen: Emergency Dept - Additional information Additional information: 88-year-old female with history of back pain for the past 2 years has developed a worsening of her back pain and she was seen in the emerge department 2 weeks ago thought likely to have urinary tract infection and placed on a course of Keflex. She continued to have pain she return to the emergency department and was prescribed pain medication. She had some worsening of her pain and is having some trouble getting in and out of bed by herself. She indicates that the onset of this pain was 2 weeks ago and she has continued to be active in her house. She is now not able to do much of anything. She is having trouble getting in and out of bed. Review of Systems Constitutional: denies: Fever, Myalgias Eyes: denies: Decreased vision Ears: denies: Ear pain Nose: denies: Rhinorrhea / runny nose, Congestion Throat: denies: Sore throat Cardiac: denies: Chest pain / pressure, Palpitations Respiratory: denies: Dyspnea, Cough GI: denies: Abdominal Pain, Nausea, Vomiting, Diarrhea : denies: Dysuria, Frequency Musculoskeletal: reports: Back pain. 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 : None HEENT: None Psych: Depression, Anxiety Musculoskeletal: Fibromyalgia, Rheumatoid arthritis Derm: None - Past Surgical History Past Surgical History: Yes Ortho: Hip replacement HEENT: Tonsil/Adenoidectomy - Present Medications Home Medications: Ambulatory Orders Medication Instructions Recorded Confirmed Acetaminophen 2 tab PO Q6HR PRN 11/28/16 10/15/18 Amiodarone HCl 200 mg PO BID 11/28/16 10/15/18 Ascorbic Acid 1 tab PO DAILY 11/28/16 10/15/18 Aspirin 1 tab PO DAILY 11/28/16 10/15/18 Metoprolol Tartrate 12.5 mg PO BID 11/28/16 10/15/18 Vitamin B Complex 1 cap PO DAILY 11/28/16 10/15/18 Cephalexin [Keflex] 500 mg PO TID #20 capsule 10/02/18 10/15/18 Hydrocodone/Acetaminophen [[place] 1 each PO Q6H PRN #15 tablet 10/11/18 10/15/18 5-325 Tablet] Naproxen 375 mg PO BID #15 tablet 10/11/18 10/15/18 traMADol [Ultram] 50 - 100 mg PO Q6H PRN #20 tablet 10/15/18 - Allergies Allergies/Adverse Reactions: Allergies Allergy/AdvReac Type Severity Reaction Status Date / Time No Known Drug Allergies Allergy Verified 10/15/18 10:06 - Social History Does the pt smoke?: No Smoking Status: Never smoker Does the pt drink ETOH?: No Does the pt have substance abuse?: No - Immunizations Immunizations are current?: No Immunizations: No immun - POLST Patient has POLST: No PD ED PE NORMAL - Vitals Vital signs reviewed: Yes (hypertensive) - General General: Alert and oriented X 3, No acute distress, Well developed/nourished - HEENT HEENT: Atraumatic, PERRL, EOMI - Neck Neck: Supple, no meningeal sign - Cardiac Cardiac: RRR, No murmur - Respiratory Respiratory: No respiratory distress, Clear bilaterally - Abdomen Abdomen: Soft, Non tender - Back Back: No CVA TTP, Other (There is spinal and paraspinal tenderness on the left side. The pain is worse with movement and palpation and absent without movement. 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, No motor deficit, No sensory deficit, Normal speech Eye Opening: Spontaneous Motor: Obeys Commands Verbal: Oriented GCS Score: 15 - Psych Psych: Normal mood, Normal affect Results - Vitals Vitals: Vital Signs - 24 hr 10/15/18 10/15/18 10/15/18 10:02 10:58 14:26 Temperature 36.6 C Heart Rate 74 73 75 Respiratory 15 18 18 Rate Blood Pressure 176/103 H 168/79 H O2 Saturation 98 95 99 Oxygen O2 Source Room air - Labs Labs: Laboratory Tests 10/15/18 12:34 Urine Color YELLOW Urine Clarity CLEAR Urine pH 5.5 Ur Specific [employer] 1.015 Urine Protein NEGATIVE Urine Glucose (UA) NEGATIVE Urine Ketones 15 H Urine Occult Blood NEGATIVE Urine Nitrite NEGATIVE Urine Bilirubin NEGATIVE Urine Urobilinogen 0.2 (NORMAL) Ur Leukocyte Esterase NEGATIVE Ur Microscopic Review NOT INDICATED Urine Culture Comments NOT INDICATED PD MEDICAL DECISION MAKING - ED course Complexity details: reviewed old records, reviewed results, re-evaluated patient, considered differential, d/w patient, d/w family ED course: 88-year-old female with back pain who has had a recent CT scan for presumed abdominal pain and this does show presence of compression fracture in the distal thoracic spine and at L2. The findings are present and there are no comparison films. The patient is diagnosed with compression fracture and treated with oral pain medication with some improvement. She is placed into a TLSO brace and social work is consulted for additional help at home. The patient has scant resources the family would really like the patient to be admitted into the hospital into a care center. The patient is able to get out of the bed with the assistance of 2 people with a TLSO brace on and as long as she is not moving she is fairly comfortable. Departure - Departure Disposition: 01 Home, Self Care Clinical Impression: Lumbar compression fracture Qualifiers: Encounter type: initial encounter Lumbar vertebra fracture level: L2 Fracture type: closed Qualified Code(s): S32.020A - Wedge compression fracture of second lumbar vertebra, initial encounter for closed fracture Condition: Stable Instructions: ED Fx Comp Vertebral Follow-Up: Hayden Guerrier MD [Primary Care Provider] - Prescriptions: traMADol [Ultram] 50 - 100 mg PO Q6H PRN #20 tablet PRN Reason: Pain Discharge Date/Time: 10/15/18 15:00
[2018-10-15 12:38] LABS: BILIRUBIN,URINE NEGATIVE (NEGATIVE); GLUCOSE, URINE (UA) NEGATIVE (NEGATIVE); KETONES,URINE (UA) 15 mg/dL (NEGATIVE); LEUKOCYTE ESTERASE, URINE NEGATIVE (NEGATIVE); NITRITE,URINE NEGATIVE (NEGATIVE); OCCULT BLOOD,URINE NEGATIVE (NEGATIVE); PH,URINE 5.5 PH (5.0-7.5); PROTEIN,URINE NEGATIVE (NEGATIVE); UROBILINOGEN,URINE 0.2 (NORMAL) E.U./dL (NORMAL)
[2018-10-15 12:40] LABS: CLARITY,URINE CLEAR (CLEAR)
[2018-10-15] MEDS ORDERED: traMADol 50 MG TABLET PO STA (13:10)
[2018-10-15 14:26] VITALS: BP 168/79
== END 2018-10-15 15:00 | disposition home or self-care (01) ==
LOC: EDBD → ED 09:58
DX: S32.020A Wedge compression fracture of second lumbar vertebra, initial encounter for closed fracture (principal); X58.XXXA Exposure to other specified factors, initial encounter; M79.7 Fibromyalgia; M06.9 Rheumatoid arthritis, unspecified; Z79.82 Long term (current) use of aspirin
CPT/HCPCS: 81003; 99283; 99284; A9270; 81001; 87086

== ENCOUNTER 2018-10-27 19:20 | Outpatient (CLI) | payer MEDICARE, MEDICAID | END 2018-10-27 19:21 | disposition critical access hospital (66) | LOC: EMS 19:20 | PROVIDERS: ATTEND Surgery | DX: M54.5 Low back pain (principal); R30.0 Dysuria | CPT/HCPCS: A0425; A0429 ==

== ENCOUNTER 2018-10-27 19:31 | Emergency (ER) | payer MEDICARE, MEDICAID ==
[2018-10-27 20:28] VITALS: BP 168/106
== END 2018-10-27 20:30 | disposition left against medical advice (07) ==
LOC: EDBD → EDUNIT# → ED 19:31
DX: Z53.21 Procedure and treatment not carried out due to patient leaving prior to being seen by health care provider (principal)

== ENCOUNTER 2018-11-10 08:02 | Outpatient (CLI) | payer MEDICARE, MEDICAID | END 2018-11-10 08:03 | disposition critical access hospital (66) | LOC: EMS 08:02 | PROVIDERS: ATTEND Surgery | DX: M54.5 Low back pain (principal) | CPT/HCPCS: A0425; A0429 ==

== ENCOUNTER 2018-11-10 08:19 | Emergency (ER) | payer MEDICARE, MEDICAID ==
--- NOTE | 2018-11-10 08:44 | ED Physician Documentation ---
PD HPI BACK PAIN - Stated complaint Stated Complaint: HIP PX - Chief complaint Chief Complaint: General - History obtained from History obtained from: Patient, EMS - History of Present Illness Timing - onset: How many months ago (1) Timing - duration: Months (1) Timing - details: Abrupt onset (She had an onset of thoracolumbar back pain about a month ago. There is no particular fall or injury but did notice the onset of it with movement. She continue with pain with movement during that time. She was seen in the ER for concern of kidney infection on her part. However the urine was clear and it sounded musculoskeletal but was not too severe. She was prescribed hydrocodone and naproxen. She got nauseous from the hydrocodone was unable to take it. She is seen again in the ER 3 days later and diagnosed with presumed lumbar compression fracture based on a CT scan of the belly from a week or 2 prior. She was treated with tramadol instead and was doing reasonable with that up until a few days ago. She had worsening of the pain several days ago while sitting on toilet having a bowel movement. She does not have any numbness or weakness in the legs. She has not had any incontinence. The pain is increased enough though that the tramadol is not helping and she has been unable to get up without assistance and even then is hurting a lot.) Location: Lower Quality: Pain, Sharp. No: Spasm, Tearing, Aching Associated symptoms: No: Fever, Weakness, Numbness, Incontinent of urine Improves with: Rest Worsened by: Movement, Twisting Contributing factors: Twisting. No: Lifting, Trauma Similar symptoms before: Diagnosis (lumbar compression fracture) Recently seen: Emergency Dept Review of Systems Constitutional: denies: Fever, Chills Nose: denies: Rhinorrhea / runny nose, Congestion Throat: denies: Sore throat Cardiac: denies: Chest pain / pressure Respiratory: denies: Dyspnea, Cough GI: reports: Abdominal Pain (lower abd fullness and some cramping pains intermittently, which she felt is constipation.), Constipation. 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 HEENT: None Psych: Depression, Anxiety Musculoskeletal: Fibromyalgia, Rheumatoid arthritis Derm: None - Past Surgical History Past Surgical History: Yes Ortho: Hip replacement HEENT: Tonsil/Adenoidectomy - Present Medications Home Medications: Ambulatory Orders Medication Instructions Recorded Confirmed Acetaminophen 2 tab PO Q6HR PRN 11/28/16 10/15/18 Amiodarone HCl 100 mg PO DAILY 11/28/16 11/10/18 Ascorbic Acid 1 tab PO DAILY 11/28/16 11/10/18 Aspirin 1 tab PO DAILY 11/28/16 11/10/18 Metoprolol Tartrate 12.5 mg PO BID 11/28/16 10/15/18 Vitamin B Complex 1 cap PO DAILY 11/28/16 11/10/18 traMADol [Ultram] 50 - 100 mg PO Q6H PRN #20 tablet 10/15/18 11/10/18 - Allergies Allergies/Adverse Reactions: Allergies Allergy/AdvReac Type Severity Reaction Status Date / Time No Known Drug Allergies Allergy Verified 11/10/18 08:33 - Social History Does the pt smoke?: No Smoking Status: Never smoker Does the pt drink ETOH?: No Does the pt have substance abuse?: No - Immunizations Immunizations are current?: No Immunizations: No immun - POLST Patient has POLST: No PD ED PE NORMAL - Vitals Vital signs reviewed: Yes - General General: Alert and oriented X 3, No acute distress (not while just lying on cart.), Well developed/nourished - HEENT HEENT: Pharynx benign - Neck Neck: Supple, no meningeal sign, No adenopathy - Cardiac Cardiac: RRR, No murmur - Respiratory Respiratory: Clear bilaterally - Abdomen Abdomen: Normal bowel sounds, Soft, Non distended, No organomegaly, Other (some tenderness left lower abd and suprapubic) - Female Female : Deferred - Rectal Rectal: Deferred - Back Back: No CVA TTP, Other (There is tenderness to palpation and percussion around the thoracolumbar area without any noted rash redness or sores.) - Derm Derm: Normal color, Warm and dry - Extremities Extremities: No deformity, No tenderness to palpate - Neuro Neuro: Alert and oriented X 3, No motor deficit, Normal speech Results - Vitals Vitals: Vital Signs - 24 hr 11/10/18 11/10/18 08:24 15:00 Temperature 36.9 C 36.8 C Heart Rate 69 77 Respiratory 17 17 Rate Blood Pressure 158/80 H 160/80 H O2 Saturation 95 95 Oxygen O2 Source Room air - Labs Labs: Laboratory Tests 11/10/18 11/10/18 11/10/18 09:14 09:14 10:42 WBC 6.5 RBC 4.90 Hgb 13.4 Hct 41.6 MCV 84.8 MCH 27.4 MCHC 32.3 RDW 17.0 H Plt Count 212 MPV 9.0 Neut # (Auto) 5.3 Lymph # (Auto) 0.5 L Nash # (Auto) 0.7 Eos # (Auto) 0.1 Baso # (Auto) 0.0 Absolute Nucleated RBC 0.00 Nucleated RBC % 0.1 Sodium 137 Potassium 4.0 Chloride 100 L Carbon Dioxide 24 Anion Gap 13.0 BUN 22 H Creatinine 0.7 Estimated GFR (MDRD) 79 L Glucose 101 H Calcium 9.1 Total Bilirubin 1.1 H AST 26 ALT 23 Alkaline Phosphatase 58 Total Protein 7.0 Albumin 3.8 Globulin 3.2 Albumin/Globulin Ratio 1.2 Lipase 32 Urine Color YELLOW Urine Clarity CLEAR Urine pH 6.0 Ur Specific [place] 1.010 Urine Protein NEGATIVE Urine Glucose (UA) NEGATIVE Urine Ketones 15 H Urine Occult Blood TRACE-LYSE Urine Nitrite NEGATIVE Urine Bilirubin NEGATIVE Urine Urobilinogen 0.2 (NORMAL) Ur Leukocyte Esterase NEGATIVE Ur Microscopic Review NOT INDICATED Urine Culture Comments NOT INDICATED - Rads (name of study) abd/pelvis CT Radiology: Prelim report reviewed (T12 2 column fracture with mild retropulsion. This is new compared to prior imaging from September. Old T11 compression fracture is stable.), See rad report PD MEDICAL DECISION MAKING - ED course Complexity details: reviewed old records (The patient has prior imaging showing a previous T11 compression fracture which looked present on a chest x-ray even in 2017. Imaging from today shows a T12 compression fracture which likely was the cause of pain from a month ago, however its worse in the last 3 or 4 days when she was having a bowel movement so it may have compressed further. I will consult spine to see if there is any intervention needed.), reviewed results, re-evaluated patient (She gets nauseous with narcotic medicines and declines anything stronger than tramadol. She is given tramadol and Tylenol here. She does require assistance to get up and some help with steadiness for ambulation. She does not feel safe or secure walking on her own even with aid of a walker. Family members say they are unable to attend with her overnight and so at this point she needs a higher level of assistance. We will have social work discuss with her the potential for home health or they are hiring an aide overnight or family members to assist or potential placement had a half-way facility in the short-term pending improvement of her back.), considered differential, d/w patient, d/w family (The family is feeling that she is not able to be cared for at home because of her pain. She has been using a LSO brace when up and around. They are able to get her up and around with assistance but is requiring 1 or 2 people. She currently has home assistance and aids just part of the day. She and the family are feeling a higher level of care as needed.), d/w [employer] consultant (Images were sent to [facility] and I talked with spine surgery on- call Dr. Santos who said there was no further treatments surgically and gave recommendations to minimally or not to use the back brace as it just causes skin irritation. Certainly not to leave it on any long-term but could use it symptomatically when up and around. Otherwise no additional particular treatments from his point of view.) ED course: Social work talked with the patient and the family. The did not feel they were able to support her overnight and being unable to stay with her at her house or have her at their house for whatever reasons. At this point it does not seem quite safe to discharge her to her self overnight and she states she is unable to get up without assistance. Social work can try to facilitate placement of the patient at his half-way facility tomorrow as there are beds available but were unable to finalize the placement today. It seems therefore the patient will stay overnight in the ER as family did not want to bring her home or felt incapable of caring for her they are. We can provide her with some oral pain medicines. Will support her with a walker and assistance. I did talk with the on-call provider at the [facility] who is Les[facility] of the [facility] providers. She states we would need to be in touch with 1 of the physician level providers in order to write prison orders when needed. Departure - Departure Clinical Impression: Difficulty walking Back pain Qualifiers: Back pain location: low back pain Chronicity: acute Back pain laterality: midline Sciatica presence: without sciatica Qualified Code(s): M54.5 - Low back pain Thoracic compression fracture Qualifiers: Encounter type: subsequent encounter Fracture type: closed Fracture healing: with delayed healing Qualified Code(s): S22.000G - Wedge compression fracture of unspecified thoracic vertebra, subsequent encounter for fracture with delayed healing Constipation Qualifiers: Constipation type: drug induced constipation Qualified Code(s): K59.03 - Drug induced constipation Condition: Stable Record reviewed to determine appropriate education?: Yes
--- NOTE | 2018-11-10 09:22 | CT Report ---
Reason: L2 compression 2 month ago; lower abd pain 1 wk Procedure Date: 11/10/2018 Accession Number: [id number] / [id number] Procedure: CT - Abdomen/Pelvis WO CPT Code: FULL RESULT: EXAM: CT ABDOMEN AND PELVIS (CT KUB) EXAM DATE: 11/10/2018 09:06 AM. CLINICAL HISTORY: Lower abdominal pain. COMPARISONS: ABDOMEN/PELVIS W/O 10/02/2018 1:56 PM. TECHNIQUE: Routine axial helical CT imaging was performed through the abdomen and pelvis without IV contrast. Reconstructions: Coronal and sagittal. In accordance with CT protocol optimization, one or more of the following dose reduction techniques were utilized for this exam: automated exposure control, adjustment of mA and/or KV based on patient size, or use of iterative reconstructive technique. FINDINGS: Lung Bases: Slight increase in mild to moderate left-sided pleural effusion and atelectasis. Prominent cardiac valve calcification is seen. Mild cardiomegaly also present. Right Kidney/Ureter: No stones, hydronephrosis, or hydroureter. No perinephric fat stranding. Left Kidney/Ureter: No stones, hydronephrosis, or hydroureter. No perinephric fat stranding. Other Solid Organs: Noncontrast imaging of the solid organs demonstrates no acute findings. Oval mass in the right hepatic lobe dome is unchanged measuring approximately 3.4 x 1.9 cm (image 15/3). Small cyst in the medial segment left hepatic lobe is unchanged. Gallbladder/Bile Ducts: Unremarkable. Peritoneal Cavity: There is mild predominantly sigmoid diverticulosis without evidence of diverticulitis. There is no obstruction or ileus. No free fluid or free air. The appendix is normal. Small fat-containing periumbilical hernia is present. Pelvic Organs: No bladder stones or wall thickening. Noncontrast images of the visualized pelvic organs are unremarkable. Vasculature: Unremarkable. Other: Right hip arthroplasty changes are seen. Generalized osteopenia and degenerative changes of the spine is also present. New 2 column burst fracture deformity at T12 is seen. Mild 4-5 mm retropulsion is suggested. Additional compression fractures at T11 and L3 are unchanged. IMPRESSION: 1. New severe T12 two column burst fracture with 4-5 mm mild retropulsion. 2. No acute intra-abdominal abnormality demonstrated. Moderate colonic diverticulosis without diverticulitis seen. 3. Slight increase in mild to moderate left pleural effusion and atelectasis. RADIA
[2018-11-10 09:27] LABS: BASOPHILS % (AUTO) 0.7 %; EOSINOPHILS # (AUTO) 0.1 10^3/uL (0.0-0.7); EOSINOPHILS % (AUTO) 0.9 %; HGB - HEMOGLOBIN 13.4 g/dL (12.0-16.0); LYMPHOCYTES # (AUTO) 0.5 10^3/uL (1.5-3.5); LYMPHOCYTES % (AUTO) 7.7 %; MEAN CORPUSCULAR HEMOGLOBIN 27.4 pg (27.0-31.0); MEAN CORPUSCULAR HGB CONC 32.3 g/dL (32.0-36.0); MEAN CORPUSCULAR VOLUME 84.8 fL (81.0-99.0); MONOCYTES # (AUTO) 0.7 10^3/uL (0.0-1.0); MONOCYTES % (AUTO) 10.4 %; NEUTROPHILS # (AUTO) 5.3 10^3/uL (1.5-6.6); NEUTROPHILS % (AUTO) 80.3 %; PLT - PLATELET COUNT 212 10^3/uL (130-450); WHITE BLOOD COUNT 6.5 x10^3/uL (4.8-10.8)
[2018-11-10 09:34] LABS: ALBUMIN 3.8 g/dL (3.2-5.5); ALBUMIN/GLOBULIN RATIO 1.2 (1.0-2.2); BILIRUBIN,TOTAL 1.1 mg/dL (0.2-1.0); CALCIUM 9.1 mg/dL (8.5-10.3); CREATININE 0.7 mg/dL (0.4-1.0)
[2018-11-10 11:09] LABS: BILIRUBIN,URINE NEGATIVE (NEGATIVE); GLUCOSE, URINE (UA) NEGATIVE (NEGATIVE); KETONES,URINE (UA) 15 mg/dL (NEGATIVE); LEUKOCYTE ESTERASE, URINE NEGATIVE (NEGATIVE); NITRITE,URINE NEGATIVE (NEGATIVE); OCCULT BLOOD,URINE TRACE-LYSE (NEGATIVE); PROTEIN,URINE NEGATIVE (NEGATIVE); UROBILINOGEN,URINE 0.2 (NORMAL) E.U./dL (NORMAL)
[2018-11-10 11:10] LABS: CLARITY,URINE CLEAR (CLEAR)
[2018-11-10] MEDS ORDERED: ACETAMINOPHEN 325 MG TABLET PO STA ×2 (11:56→19:03)
[2018-11-10] MEDS ORDERED: traMADol 50 MG TABLET PO STA ×2 (11:56→19:03)
[2018-11-10] MEDS ORDERED: DOCUSATE SODIUM 100 MG CAPSULE PO STA (11:57)
[2018-11-10] MEDS ORDERED: NAPROXEN 250 MG TABLET PO STA (11:57)
[2018-11-10] MEDS ORDERED: oxyCODONE 5 MG TABLET PO STA (20:22)
[2018-11-11] MEDS ORDERED: ACETAMINOPHEN 325 MG TABLET PO STA (03:46)
[2018-11-11] MEDS ORDERED: oxyCODONE 5 MG TABLET PO STA (07:17)
[2018-11-11] MEDS ORDERED: METOPROLOL SUCCINATE 25 MG TABLET PO SCH (09:00)
[2018-11-11 13:37] VITALS: BP 143/90
== END 2018-11-11 13:57 | disposition home or self-care (01) ==
LOC: EDUNIT# → ED 08:19
DX: S22.000G Wedge compression fracture of unspecified thoracic vertebra, subsequent encounter for fracture with delayed healing (principal); K59.03 Drug induced constipation
CPT/HCPCS: 36415; 74176; 80053; 81003; 83690; 85025; 99284; 99285; A9270; 81001; 87086

== ENCOUNTER 2019-06-01 12:11 | Outpatient (CLI) | payer MEDICARE, MEDICAID ==
[2019-06-01 19:37] LABS: FREE T4 (FREE THYROXINE) 0.74 ng/dL (0.58-1.64)
== END 2019-06-01 23:59 | disposition home or self-care (01) ==
LOC: LAB.N 12:11
PROVIDERS: ATTEND Nurse Practitioner Gerontology
DX: I50.9 Heart failure, unspecified (principal); R60.0 Localized edema; R06.02 Shortness of breath; E03.9 Hypothyroidism, unspecified; I48.91 Unspecified atrial fibrillation
CPT/HCPCS: 36415; 80048; 83880; 84439; 84443

== ENCOUNTER 2019-06-04 15:18 | Outpatient (CLI) | payer MEDICARE, MEDICAID | END 2019-06-04 15:19 | disposition critical access hospital (66) | LOC: EMS 15:18 | PROVIDERS: ATTEND Surgery | DX: R68.89 Other general symptoms and signs (principal) | CPT/HCPCS: A0425; A0429 ==

== ENCOUNTER 2019-06-04 15:38 | Observation (INO) | payer MEDICARE, MEDICAID ==
[2019-06-04 16:38] LABS: BASOPHILS % (AUTO) 0.4 %; EOSINOPHILS # (AUTO) 0.1 10^3/uL (0.0-0.7); EOSINOPHILS % (AUTO) 1.8 %; HGB - HEMOGLOBIN 13.6 g/dL (12.0-16.0); LYMPHOCYTES # (AUTO) 0.7 10^3/uL (1.5-3.5); LYMPHOCYTES % (AUTO) 9.7 %; MEAN CORPUSCULAR HEMOGLOBIN 27.4 pg (27.0-31.0); MEAN CORPUSCULAR HGB CONC 30.3 g/dL (32.0-36.0); MEAN CORPUSCULAR VOLUME 90.3 fL (81.0-99.0); MEAN PLATELET VOLUME 11.3 fL (7.9-10.8); MONOCYTES # (AUTO) 0.7 10^3/uL (0.0-1.0); MONOCYTES % (AUTO) 9.9 %; NEUTROPHILS # (AUTO) 5.5 10^3/uL (1.5-6.6); NEUTROPHILS % (AUTO) 77.8 %; PLT - PLATELET COUNT 174 10^3/uL (130-450); RED BLOOD COUNT 4.97 10^6/uL (4.20-5.40); RED CELL DISTRIBUTION WIDTH 15.5 % (12.0-15.0); WHITE BLOOD COUNT 7.1 x10^3/uL (4.8-10.8)
[2019-06-04 16:52] LABS: ALBUMIN 3.6 g/dL (3.2-5.5); ALBUMIN/GLOBULIN RATIO 1.1 (1.0-2.2); BILIRUBIN,TOTAL 0.6 mg/dL (0.2-1.0); CALCIUM 8.8 mg/dL (8.5-10.3); CREATININE 0.9 mg/dL (0.4-1.0); TOTAL PROTEIN 6.8 g/dL (6.7-8.2)
--- NOTE | 2019-06-04 17:05 | XRAY Report ---
Reason: elevated BNP Procedure Date: 06/04/2019 Accession Number: [id number] / [id number] Procedure: XR - Chest 1 View X-Ray CPT Code: 83586 FULL RESULT: EXAM: CHEST RADIOGRAPHY EXAM DATE: 06/04/2019 04:41 PM. CLINICAL HISTORY: Elevated BNP. COMPARISON: [facility] W/PA CHEST LT 03/02/2018 1:49 AM ABDOMEN/PELVIS W/O 11/10/2018 9:02 AM. TECHNIQUE: 1 view. FINDINGS: Lungs/Pleura: Moderate left and small right pleural effusions, increased from priors. Adjacent mid and lower lung opacities, likely atelectasis. No evidence of edema. No pneumothorax visualized. Mediastinum: Heart mostly obscured but likely enlarged. Other: None. IMPRESSION: Moderate left and small right pleural effusions. RADIA
--- NOTE | 2019-06-04 18:01 | ED Physician Documentation ---
History of Present Illness - Stated complaint Stated Complaint: ABNORMAL LABS - Chief complaint Chief Complaint: Cardiac - History obtained from History obtained from: Patient, Family - History of Present Illness Timing: How many days ago (3) - Additonal information Additional information: 88-year-old female was evaluated by her primary care doctor for anxiety and depression 3 days ago in the office and at that time blood work was drawn. Her BNP came back at 6777 and she was asked to come to the emergency department for evaluation. The patient states that she is able to walk to her bathroom by herself and back without being short of breath. She states she is able to get out of bed without getting short of breath. She does acknowledge a declining level of health and a declining stamina over the past year. She is especially affected by the sale of her home and her possessions which is left her with anxiety and depression. She has 4 daughters that live in the area and they are close to her and take care of her regularly. She was started on antidepressant at that prior visit but she has not started the medication yet. 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 : None HEENT: None Psych: Depression, Anxiety Musculoskeletal: Fibromyalgia, Rheumatoid arthritis, Osteoporosis Derm: None - Past Surgical History Past Surgical History: Yes Ortho: Hip replacement HEENT: Tonsil/Adenoidectomy - Present Medications Home Medications: Ambulatory Orders Medication Instructions Recorded Confirmed Acetaminophen 2 tab PO Q6HR PRN 11/28/16 06/04/19 Amiodarone HCl 100 mg PO DAILY 11/28/16 06/04/19 Ascorbic Acid 1 tab PO DAILY 11/28/16 06/04/19 Aspirin 1 tab PO DAILY 11/28/16 06/04/19 Metoprolol Tartrate 12.5 mg PO BID 11/28/16 06/04/19 Polyethylene Glycol 3350 [Miralax] 17 gm PO DAILY PRN #1 bottle 11/11/18 06/04/19 Tramadol HCl 50 mg PO Q6H PRN #25 tablet 11/11/18 06/04/19 - Allergies Allergies/Adverse Reactions: Allergies Allergy/AdvReac Type Severity Reaction Status Date / Time No Known Drug Allergies Allergy Verified 06/04/19 16:03 - Social History Does the pt smoke?: No Smoking Status: Never smoker Does the pt drink ETOH?: No Does the pt have substance abuse?: No - Immunizations Immunizations are current?: No Immunizations: No immun - POLST Patient has POLST: No PD ED PE NORMAL - Vitals Vital signs reviewed: Yes (mild hypertension ) - General General: Alert and oriented X 3, No acute distress, Well developed/nourished - HEENT HEENT: Atraumatic, PERRL, EOMI - Neck Neck: Supple, no meningeal sign - Cardiac Cardiac: RRR, No murmur - Respiratory Respiratory: No respiratory distress, Other (diminished breath sounds in the left base. ) - Abdomen Abdomen: Soft, Non tender - Back Back: No CVA TTP, No spinal TTP - Derm Derm: Normal color, Warm and dry, No rash - Extremities Extremities: No deformity, No edema - Neuro Neuro: Alert and oriented X 3, contract specialist 2-12 intact, No motor deficit, No sensory deficit, Normal speech Eye Opening: Spontaneous Motor: Obeys Commands Verbal: Oriented GCS Score: 15 - Psych Psych: Other (mood is sad affect does have some range. ) Results - Vitals Vitals: Vital Signs - 24 hr 06/04/19 06/04/19 15:55 18:22 Temperature 37 C 36.4 C L Heart Rate 62 63 Respiratory 16 18 Rate Blood Pressure 143/92 H 138/64 H O2 Saturation 98 97 Oxygen O2 Source Room air - Labs Labs: Laboratory Tests 06/04/19 06/04/19 06/04/19 16:32 16:32 16:32 WBC 7.1 RBC 4.97 Hgb 13.6 Hct 44.9 MCV 90.3 MCH 27.4 MCHC 30.3 L RDW 15.5 H Plt Count 174 MPV 11.3 H Neut # (Auto) 5.5 Lymph # (Auto) 0.7 L Sharp # (Auto) 0.7 Eos # (Auto) 0.1 Baso # (Auto) 0.0 Absolute Nucleated RBC 0.00 Nucleated RBC % 0.0 Sodium 142 Potassium 3.3 L Chloride 102 Carbon Dioxide 32 Anion Gap 8.0 BUN 28 H Creatinine 0.9 Estimated GFR (MDRD) 59 L Glucose 95 Calcium 8.8 Total Bilirubin 0.6 AST 23 ALT 19 Alkaline Phosphatase 54 Troponin I High Sens 843.9 H* B-Natriuretic Peptide Total Protein 6.8 Albumin 3.6 Globulin 3.2 Albumin/Globulin Ratio 1.1 Lipase 36 06/04/19 16:32 WBC RBC Hgb Hct MCV MCH MCHC RDW Plt Count MPV Neut # (Auto) Lymph # (Auto) Sharp # (Auto) Eos # (Auto) Baso # (Auto) Absolute Nucleated RBC Nucleated RBC % Sodium Potassium Chloride Carbon Dioxide Anion Gap BUN Creatinine Estimated GFR (MDRD) Glucose Calcium Total Bilirubin AST ALT Alkaline Phosphatase Troponin I High Sens B-Natriuretic Peptide 7957.00 H Total Protein Albumin Globulin Albumin/Globulin Ratio Lipase - Rads (name of study) chest Radiology: Prelim report reviewed (Impression: Moderate left and small right pleural effusions), EMP read indepedently, See rad report Procedures - IVC sono (time) 1745 Bedside IVC sono: IVC measures (cm) (1.35), IVC collapsed c insp (cm) (1.35), Dehydration (mild) PD MEDICAL DECISION MAKING - ED course Complexity details: reviewed old records, reviewed results, re-evaluated patient, considered differential, d/w patient, d/w family ED course: 88-year-old female in declining health with declining stamina has a left pleural effusion that has slowly enlarged over the past year. She does not have a history of congestive heart failure and she does not give any clinical history consistent with acute failure. Today on interrogation the inferior vena cava her vessel was 1.35 cm and this is not consistent with acute failure and in fact represents a level of dehydration. She did not have pulmonary edema on her chest x-ray. She does have a large left pleural effusion. I do not believe that addition of diuretic such as spironolactone would be beneficial to the patient has I suspect she would become more dehydrated and she has had problems with falls previously. She is having most of her problem or concern with her depression and anxiety related to her aging and loss of her possessions. She indicates that her came to her this past week and she indicates that it was private. I suspect she is slowly dying. Today her trop is elevated to the 800 range. She denies chest pain. Departure - Departure Disposition: 66 [facility] DC/Xfer Clinical Impression: Anxiety as acute reaction to exceptional stress, Silent myocardial infarction Condition: Stable
[2019-06-04] MEDS ORDERED: SODIUM CHLORIDE FLUSH 0.9% 10 ML SYRINGE IVP PRN (19:51)
[2019-06-04] MEDS ORDERED: FUROSEMIDE 40 MG/4 ML VIAL IVP STA (20:02)
--- NOTE | 2019-06-04 20:33 | HISTORY & PHYSICAL EXAMINATION ---
Chief Complaint - Chief Complaint Chief Complaint: elevated troponin and BNP, lower extremity edema, loud murmur History of Present Illness - Admitted From Admitted From:: [facility] - History Obtained From Records Reviewed: yes History obtained from: patient - History of Present Illness HPI Comment/Other: Patient seen and examined on 06/04/19 around 19:30 pm Patient is an 88 y/o female who was asked to present to the ED after routine labs done came back with a BNP of 6700. Repeat labs in the ED showed a Troponin of 800 and a BNP of 7957. She denies any active chest pain or dyspnea. However it is reported by her daughter that her breathing has been progressively more labored over the past 2 months. She is not on oxygen currently. She has a 2+ lower extremity edema. She presents from [facility] where she has been residing for the past 6 months. She is depressed as a result of the move and laments over it. Her family had to sell her home and things because she was not able to take care of them. She has fallen off her bed a couple of times. She normal uses her wheelchair or walks without any aid. She denies abdominal pain, nausea, vomiting, fever or chills. She has history of atrial fibrillation for which she is on amiodarone and me toprolol. She also has hypertension and osteoporosis. 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. She denies tobacco, alcohol or illicit drug use - POLST Patient has POLST: No POLST Status: DNR Meds/Allgy - Home Medications Home Medications: Ambulatory Orders Medication Instructions Recorded Confirmed Acetaminophen 2 tab PO Q6HR PRN 11/28/16 06/04/19 Amiodarone HCl 100 mg PO DAILY 11/28/16 06/04/19 Ascorbic Acid 1 tab PO DAILY 11/28/16 06/04/19 Aspirin 1 tab PO DAILY 11/28/16 06/04/19 Metoprolol Tartrate 12.5 mg PO BID 11/28/16 06/04/19 Polyethylene Glycol 3350 [Miralax] 17 gm PO DAILY PRN #1 bottle 11/11/18 06/04/19 Tramadol HCl 50 mg PO Q6H PRN #25 tablet 11/11/18 06/04/19 - Allergies Allergies/Adverse Reactions: Allergies Allergy/AdvReac Type Severity Reaction Status Date / Time No Known Drug Allergies Allergy Verified 06/04/19 16:03 Review of Systems - Constitutional Constitutional: reports: Fatigue, Poor appetite. denies: Fever, Chills - Eyes Eyes: denies: Amaurosis, Blurred vision, Vision loss, Dipolpia - Ears, Nose & Throat Ears, Nose & Throat: denies: Nasal pain, Nasal discharge, Sore throat, Hoarseness - Cardiovascular Cariovascular: reports: Edema, Exertional dyspnea. denies: Irregular heart rate, Chest pain, Lightheadedness, Syncope - Respiratory Respiratory: reports: SOB with exertion. denies: Cough, Sputum production, Wheezing, SOB at rest - Gastrointestinal Gastrointestinal: reports: Reflux/heartburn. denies: Abdominal pain, Abdominal distention, Constipation, Diarrhea, Black stools, Nausea, Vomiting, Coffee grounds emesis - Genitourinary Genitourinary: denies: Dysuria, Frequency, Urgency, Hematuria, Incontinence - Musculoskeletal Musculoskeletal: denies: Muscle pain, Back pain, Muscle aches - Integumentary Integumentary: denies: Rash, Pruritis, Lesions, Dryness - Neurological Neurological: denies: General weakness, Focal weakness, Headache, Dizziness - Psychiatric Psychiatric: reports: Depression. denies: Anxiety - Endocrine Endocrine: denies: Polyuria, Polydypsia - Hematologic/Lymphatic Hematologic/Lymphatic: reports: Bruising. denies: Anemia, Petechiae Prior Level of Functionality: She resides at [facility]. She was moved there by her family after her home became too much for her to manage. She gets around using her wheelchair, but sometimes walks. It is reported that she has fallen a couple of time Exam - Vital Signs Vital Signs: Vital Signs x48h Temp Pulse Resp BP Pulse Ox 06/04/19 18:22 36.4 C L 63 18 138/64 H 97 06/04/19 15:55 37 C 62 16 143/92 H 98 - Physical Exam General Appearance: positive: No acute distress, Alert. negative: Anxious Eyes Bilateral: positive: Normal inspection, PERRL, EOMI ENT: positive: ENT inspection nml. negative: Dry mucous membranes Neck: positive: Nml inspection, No JVD, Trachea midline Respiratory: positive: Chest non-tender, No respiratory distress, Other (coarse breath sound). negative: Wheezes, Rales, Rhonchi Cardiovascular: positive: Regular rate & rhythm, Systolic murmur (loud systollic murmur at the aortic post) Abdomen: positive: Non-tender, No organomegaly, Nml bowel sounds, No distention. negative: Guarding, Rebound Back: positive: Nml inspection Skin: positive: Color nml, No rash, Warm, Dry. negative: Diaphoresis, Skin rash Extremities: positive: Non-tender, Pedal edema (2+ lower extremity edema) Neurologic/Psychiatric: positive: CN's nml (2-12), Motor nml, Other (oriented X2. (self and place)) Conclusion/Plan - Problem List (1) NSTEMI (non-ST elevated myocardial infarction) Conclusion/Plan: Patient's initial Troponin was 800. Will trend troponin Looking at records from an admission at [facility] in 2017. Patient has a stress test which showed a fixed defect in the basal to mid anterolateral wall and a small area of reversible defect in the apex Medical management with aspirin, beta-lamar and a statin was recommended by cardiology Patient is on lopressor 12.5mg po bid and a full dose aspirin has been ordered. Patient used to be on atorvastatin 40mg po daily and lisinopril 5mg po daily. Will have pharmacy verify in the am. After talking with her daughter who is DPOA, she would not want any intervention or invasive work up done. They wish for medical management only. She point's her mother's age as a kapoor reason. We will continue medical management and have the patient follow up with her ethylbenzene converter operator upon discharge. (2) CHF (congestive heart failure) Conclusion/Plan: Patient's BNP is in the 7000's She has moderate left pleural effusion on chest xray and 2+ pitting edema Last documented EF on echo in 2017 was 40% Patient used to be on lisinopril, lasix and spironolactone. Will have pharmacy verify in the am. Lasix 40mg IV X1 and then lasix 20mg IV bid has been ordered However the patient has currently refused to take lasix. Will try convincing her again after a while 2D echo has been ordered for the morning. Qualifiers: Heart failure type: systolic (3) Murmur, cardiac Conclusion/Plan: Patient has a loud systolic murmur heard at the aortic post. In 2017 it was documented at her [facility] admission that she had Moderate to severe tricuspid regurgitation, mild to moderate mitral regurgitation, mild geetha ral stenosis and moderate aortic stenosis. Suspect valvular function has likely worsened. 2D echo pending for the morning. Lasix has been ordered. However patient is currently refusing medication (4) Atrial fibrillation Conclusion/Plan: On metoprolol and amiodarone (5) Hypertension Conclusion/Plan: On metoprolol (6) Osteoarthritis Conclusion/Plan: Pain management as indicated - Lab Results Fish Bones: 06/04/19 16:32 06/04/19 16:32 Core Measures - Anticipated LOS I expect patient to be DC'd or transferred within 96 hours.: Yes - DVT/VTE - Prophylaxis VTE/DVT Device ordered at admit?: Yes VTE/DVT Prophylaxis med ordered at admit?: Yes - AMI - Statin at Admit Aspirin Prescribed on Admit: Yes
[2019-06-04] MEDS: METOPROLOL TARTRATE 25 MG TABLET PO SCH (21:12)
[2019-06-04] MEDS: ASPIRIN EC 325 MG TABLET PO SCH (21:13)
[2019-06-05] MEDS: SODIUM CHLORIDE FLUSH 0.9% 10 ML SYRINGE IVP SCH ×3 (00:33→16:15)
[2019-06-05] MEDS: FUROSEMIDE 20 MG/2 ML VIAL IVP SCH ×2 (05:55→16:15)
[2019-06-05 06:18] LABS: BASOPHILS % (AUTO) 0.6 %; EOSINOPHILS # (AUTO) 0.2 10^3/uL (0.0-0.7); EOSINOPHILS % (AUTO) 3.6 %; HGB - HEMOGLOBIN 12.3 g/dL (12.0-16.0); LYMPHOCYTES # (AUTO) 0.7 10^3/uL (1.5-3.5); LYMPHOCYTES % (AUTO) 14.3 %; MEAN CORPUSCULAR HEMOGLOBIN 27.2 pg (27.0-31.0); MEAN CORPUSCULAR HGB CONC 30.1 g/dL (32.0-36.0); MEAN CORPUSCULAR VOLUME 90.3 fL (81.0-99.0); MEAN PLATELET VOLUME 11.8 fL (7.9-10.8); MONOCYTES # (AUTO) 0.5 10^3/uL (0.0-1.0); MONOCYTES % (AUTO) 10.8 %; NEUTROPHILS # (AUTO) 3.3 10^3/uL (1.5-6.6); NEUTROPHILS % (AUTO) 70.3 %; PLT - PLATELET COUNT 150 10^3/uL (130-450); RED BLOOD COUNT 4.53 10^6/uL (4.20-5.40); RED CELL DISTRIBUTION WIDTH 15.5 % (12.0-15.0); WHITE BLOOD COUNT 4.7 x10^3/uL (4.8-10.8)
[2019-06-05] MEDS: PANTOPRAZOLE 40 MG TABLET PO SCH (06:24)
[2019-06-05 06:25] LABS: CALCIUM 8.5 mg/dL (8.5-10.3); CREATININE 0.7 mg/dL (0.4-1.0)
[2019-06-05] MEDS: POTASSIUM CHLORIDE 20 MEQ/15 ML UDC PO SCH (08:43)
[2019-06-05] MEDS: ASPIRIN EC 325 MG TABLET PO SCH (08:43)
[2019-06-05] MEDS: ENOXAPARIN 40 MG/0.4 ML SYRINGE SUBQ SCH (08:43)
[2019-06-05] MEDS: METOPROLOL TARTRATE 25 MG TABLET PO SCH ×2 (08:44→21:25)
[2019-06-05] MEDS: POLYETHYLENE GLYCOL 3350 17 GM PACKET PO SCH (08:46)
[2019-06-05] MEDS ORDERED: ACETAMINOPHEN 325 MG TABLET PO PRN (12:27)
[2019-06-06] MEDS: SODIUM CHLORIDE FLUSH 0.9% 10 ML SYRINGE IVP SCH ×2 (00:03→08:26)
[2019-06-06 05:58] LABS: BASOPHILS % (AUTO) 0.4 %; EOSINOPHILS # (AUTO) 0.2 10^3/uL (0.0-0.7); EOSINOPHILS % (AUTO) 3.9 %; LYMPHOCYTES # (AUTO) 0.7 10^3/uL (1.5-3.5); LYMPHOCYTES % (AUTO) 13.4 %; MEAN CORPUSCULAR HEMOGLOBIN 27.1 pg (27.0-31.0); MEAN CORPUSCULAR HGB CONC 29.9 g/dL (32.0-36.0); MEAN CORPUSCULAR VOLUME 90.8 fL (81.0-99.0); MEAN PLATELET VOLUME 12.1 fL (7.9-10.8); MONOCYTES # (AUTO) 0.5 10^3/uL (0.0-1.0); MONOCYTES % (AUTO) 10.4 %; NEUTROPHILS # (AUTO) 3.6 10^3/uL (1.5-6.6); NEUTROPHILS % (AUTO) 71.7 %; PLT - PLATELET COUNT 163 10^3/uL (130-450); RED BLOOD COUNT 4.79 10^6/uL (4.20-5.40); RED CELL DISTRIBUTION WIDTH 15.5 % (12.0-15.0); WHITE BLOOD COUNT 5.1 x10^3/uL (4.8-10.8)
[2019-06-06] MEDS: FUROSEMIDE 20 MG/2 ML VIAL IVP SCH ×2 (06:04→13:39)
[2019-06-06 06:05] LABS: CALCIUM 8.6 mg/dL (8.5-10.3); CREATININE 0.6 mg/dL (0.4-1.0)
[2019-06-06] MEDS: PANTOPRAZOLE 40 MG TABLET PO SCH (06:47)
--- NOTE | 2019-06-06 07:29 | PROVIDER PROGRESS NOTE ---
Subjective - Prog Note Date Prog Note Date: 06/06/19 - Subjective Pt reports feeling: No change Subjective: DISCHARGE NOTE: she was hallucinating yesterday. Speaking to and seeing her . was refusing lasix so not much movement on her fluid yesterday morning. She did agree to 4 pm and this am dose. She wants to go home. Doesn't want more treatment and feels as if she is improved enough to go home. Current Medications - Current Medications Current Medications: Active Medications Acetaminophen (Tylenol) 650 mg PO Q4HR PRN PRN Reason: Pain or Fever > 38C (100.4F) Aspirin (Ecotrin) 325 mg PO DAILY [facility] Last Admin: 06/05/19 08:43 Dose: 325 mg Enoxaparin Sodium (Lovenox) 40 mg SUBQ DAILY [facility] Last Admin: 06/05/19 08:43 Dose: 40 mg Furosemide (Lasix Inj 20mg Vial) 20 mg IVP BIDDIURETIC [facility] Last Admin: 06/06/19 06:04 Dose: 20 mg Metoprolol Tartrate (Lopressor) 12.5 mg PO BID [facility] Last Admin: 06/05/19 21:25 Dose: Not Given Pantoprazole Sodium (Protonix) 40 mg PO QDAC [facility] Last Admin: 06/06/19 06:47 Dose: 40 mg Polyethylene Glycol (Miralax) 17 gm PO DAILY [facility] Last Admin: 06/05/19 08:46 Dose: 17 gm Potassium Chloride () 40 meq PO DAILYWM [facility] Last Admin: 06/05/19 08:43 Dose: 40 meq Sodium Chloride (Normal Saline Flush 0.9%) 10 ml IVP PRN PRN PRN Reason: NEEDED PER PROVIDER ORDERS Sodium Chloride (Normal Saline Flush 0.9%) 10 ml IVP 0100,0900,1700 [facility] Last Admin: 06/06/19 00:03 Dose: Not Given Acetaminophen 2 tab PO Q6HR PRN 11/28/16 Amiodarone HCl 100 mg PO DAILY 11/28/16 Ascorbic Acid 1 tab PO DAILY 11/28/16 Aspirin 1 tab PO DAILY 11/28/16 Metoprolol Tartrate 12.5 mg PO BID 11/28/16 Calcitonin,[place],Synthetic [Calcitonin-[place]] 1 spray JACOB DAILY 06/05/19 Sertraline [Zoloft] 25 mg PO DAILY 06/05/19 Objective - Vital Signs/Intake & Output Reviewed Vital Signs: Yes Vital Signs: Vital Signs x48h Temp Pulse Resp BP Pulse Ox 06/06/19 05:00 36.6 C 60 26 H 144/76 H 94 06/05/19 23:50 36.3 C L 62 18 147/82 H 99 Intake & Output: Intake & Output 06/03/19 06/04/19 06/05/19 06/06/19 23:59 23:59 23:59 23:59 Intake Total 560 30 Balance 560 30 - Objective General Appearance: positive: No acute distress, Alert, Other Eyes Bilateral: positive: PERRL, EOMI Neck: positive: No JVD. negative: Stiff neck, Carotid bruit Respiratory: positive: Chest non-tender, No respiratory distress. negative: Wheezes, Rales, Rhonchi Cardiovascular: positive: Regular rate & rhythm, Systolic murmur (very harsh and high pitched, radiates into carotids). negative: Gallop/S4, Friction rub Abdomen: positive: Non-tender, No organomegaly, Nml bowel sounds, No distention Skin: positive: Warm, Dry Extremities: positive: Full ROM, No pedal edema (thick cankles but no pitting) Neurologic/Psychiatric: positive: CN's nml (2-12) (except ? mildly deaf), Motor nml, Disoriented to place (at times, but knows she's in a hospital and not happy to be here), Disoriented to time, Weakness (generalized). negative: Facial droop, Slurred/abnml speech - Lab Results Fish Bones: 06/06/19 05:21 06/06/19 05:21 Other Labs: Lab Results x24hrs 06/06/19 06/06/19 06/06/19 Range/Units 05:21 05:21 05:21 WBC 5.1 (4.8-10.8) x10^3/uL RBC 4.79 (4.20-5.40) 10^6/uL Hgb 13.0 (12.0-16.0) g/dL Hct 43.5 (37.0-47.0) % MCV 90.8 (81.0-99.0) fL MCH 27.1 (27.0-31.0) pg MCHC 29.9 L (32.0-36.0) g/dL RDW 15.5 H (12.0-15.0) % Plt Count 163 (130-450) 10^3/uL MPV 12.1 H (7.9-10.8) fL Neut # (Auto) 3.6 (1.5-6.6) 10^3/uL Lymph # (Auto) 0.7 L (1.5-3.5) 10^3/uL [place] # (Auto) 0.5 (0.0-1.0) 10^3/uL Eos # (Auto) 0.2 (0.0-0.7) 10^3/uL Baso # (Auto) 0.0 (0.0-0.1) 10^3/uL Absolute Nucleated RBC 0.00 x10^3/uL Nucleated RBC % 0.0 /100WBC Sodium 144 (135-145) mmol/L Potassium 3.6 (3.5-5.0) mmol/L Chloride 102 (101-111) mmol/L Carbon Dioxide 34 H (21-32) mmol/L Anion Gap 8.0 (6-13) BUN 24 H (6-20) mg/dL Creatinine 0.6 (0.4-1.0) mg/dL Estimated GFR (MDRD) 94 (>89) Glucose 94 (70-100) mg/dL Calcium 8.6 (8.5-10.3) mg/dL B-Natriuretic Peptide 5189.00 H (5-100) pg/mL ABX Reporting Has patient been on IV antibiotics over the past 48 hours?: No Assessment/Plan - Problem List (1) NSTEMI (non-ST elevated myocardial infarction) Impression: Patient's initial Troponin was 800>761.9. Once trended down, no further check. Looking at records from an admission at [facility] in 2017. Patient has a stress test which showed a fixed defect in the basal to mid ant erolateral wall and a small area of reversible defect in the apex Medical management with aspirin, beta-lamar and a statin was recommended by cardiology Patient is on lopressor 12.5mg po bid and a full dose aspirin has been ordered and continued. Patient used to be on atorvastatin 40mg po daily and lisinopril 5mg po daily and is not on those now. After talking with her daughter who is DPOA, she would not want any intervention or invasive work up done. They wish for medical management only that is as minimal as possible. She point's her mother's age as a kapoor reason. We will continue medical management and have the patient follow up with her electrical equipment technician upon discharge.I explained this to the patient and she was satisfied with this plan as well. (2) acute on chronic systolic CHF (congestive heart failure) Conclusion/Plan: Patient's BNP 7957>7100>5189 this am No I/O being done. She had moderate left pleural effusion on chest xray and 2+ pitting edema. today her edema is markedly improved. She does get increased respiratory rate while speaking to me but doesn't struggle to breath. no JVD. Last documented EF on echo in 2017 was 40% and she is down to 30-35% with our current ECHO Patient used to be on lisinopril, lasix and spironolactone but is not on those now. Lasix 40mg IV X1 and then lasix 20mg IV bid has been ordered but she had been re fusing meds yesterday am. Finally took meds last night and this am. She feels"fine" and is not sob. She will go home on lasix, metoprolol, and lisinopril and I have stressed their importance in helping her stay out of the hospital. Qualifiers: Heart failure type: systolic (3) Critical aortic stenosis. Conclusion/Plan: Patient has a loud systolic murmur heard at the aortic post. In 2017 it was documented at her [facility] admission that she had Moderate to severe tricuspid regurgitation, mild to moderate mitral regurgitation, mild mitral stenosis and moderate aortic stenosis. ECHO 06/05 shows left ventricular systolic function moderately to severely impaired with an ejection fraction of 30 to 35%. Pseudo-normal LV filling pattern consistent with grade 3 diastolic dysfunction. Regional wall motion abnormalities in the basal-mid inferior, inferolateral and lateral wall segment akinesis noted. Mild right ventricular enlargement. Severe increase in left atrial enlargement. Moderate to severe right atrial enlargement. Severe aortic stenosis with a peak/mean pressure gradient of 92 mmHg / 60 mmHg, aortic valve area by continuity equation is 0.3 cm. Mild- moderate mitral regurgitation. Moderate to severe tricuspid regurgitation, severely abnormal right heart pressures. RVSP at rest is 88 mmHg. She has be en resumed on lasix, lisinopril, metoprolol and I have stressed to her the importance of continuing these meds. still has loud, shrill systolic murmur with radiation to carotids. Minimal crackles but dull lung bases. I spoke to her about this finding. She is not convinced. Feels that I am wrong and that she is perfectly fine and trusts her own sacha and judgment about the need for intervention or meds. I did explain that with her age, a TAVR would be recommended if there was anything done at a ll. There was a likelihood that a electrical equipment technician would not recommend one. She said it didn't matter because she wouldn't do one anyway. I did discuss this with her daughter Jade @ [phone]. I strongly encouraged her to take her meds as instructed. She remains DNR. I advised her to at least consider Palliative Care, if not Hospice, if she strongly feels that she wants no intervention. I do expect continued deterioration from her cardiac status. She feels like she is not ready for that discussion, Hospice that is. She still wants "to live" a longer life. Again, states that I am wrong and she will just do what she feels she needs. (4) Atrial fibrillation Conclusion/Plan: On metoprolol and amiodarone and rate is in the 60's. well controlled. not a candidate for anticoagulation due to noncompliance. (5) Hypertension Conclusion/Plan: On metoprolol (6) Osteoarthritis Conclusion/Plan: Pain management as indicated
[2019-06-06] MEDS: POTASSIUM CHLORIDE 20 MEQ/15 ML UDC PO SCH (08:26)
[2019-06-06] MEDS: ENOXAPARIN 40 MG/0.4 ML SYRINGE SUBQ SCH (08:26)
[2019-06-06] MEDS: ASPIRIN EC 325 MG TABLET PO SCH (08:26)
[2019-06-06] MEDS: POLYETHYLENE GLYCOL 3350 17 GM PACKET PO SCH (08:26)
[2019-06-06] MEDS: METOPROLOL TARTRATE 25 MG TABLET PO SCH (08:30)
[2019-06-06] MEDS ORDERED: SENNA 8.6 MG TABLET PO SCH (12:00)
--- NOTE | 2019-06-06 12:00 | Discharge Plan ---
Discharge Plan for SNF / [facility] - Discharge Plan And Transition Orders Problem Reviewed?: Yes Disposition: 01 Home, Self Care Condition: Fair Allergies and Adverse Reactions: Allergies Allergy/AdvReac Type Severity Reaction Status Date / Time No Known Drug Allergies Allergy Verified 06/04/19 16:03 Health Concerns: You were brought to the hospital because your family felt that you are having slow but steady increasing labored breathing, shortness of breath with exertion, and increasingly swollen legs. You have a known heart arrhythmia called atrial fibrillation. Plan of Treatment: 1. You have old medicine lists that have you taking a water pill (lasix), a pill to slow down your heart rate (metoprolol), and a pill to let your heart work less hard ( lisinopril), but you are not on those when you came to the Emergency room. We are resuming those because you do have congestive heart failure with a weak pump as well as a very small valve not letting your heart pump out blood. that is called Aortic stenosis. 2. We do think that your life expectancy is going to be significantly shortened more than the usual time because of the heart failure and aortic stenosis. We would recommend possible transition to Hospice. Care Goals: 1. Please see your regular provider, Chelsey Dey, in the next week. She will need to listen to your heart and adjust you medicines. - SNF / [facility] Transition Orders Admit to (Facility): [facility] Under the care of (Name): JAKE eMndoza Discharge Diagnosis: 1. acute on chronic congestive heart failure 2. Critical aortic stenosis 3. chronic atrial fibrillation 4. HTN 5. osteoarthritis Medicare Certification Statement: I certify that [facility] is medically necessary on a continuing basis for any of the conditions for which she/he is receiving care during hospitalization. Notify PCP of admission and forward orders to primary provider for signature. Weight on admission and: Daily Call PCP immediately if weight increases by: 2.2 kg Other Notification Orders: Call PCP immediately if patient develops dyspnea, chest pain/tightness or edema. House Bowel Program: Yes Additional Bowel Program Orders: If no BM after 2 days, nurse may give M.O.M. 30ml PO PRN and/or ducolax Supp 1 DE and/or KARISHMA 250mg P.O., and/or senna 1-2 tabs PO. On day 3 nurse may give repeat above order until residents constipation is resolved. Annual Influenza Vaccine (between Apr 08 and November 05): Yes Two-step PPD per [facility] [phone] or approved exception documents: Yes Medication Orders: PLEASE REFER TO THE DISCHARGE MEDICATION LIST. Insulin Orders?: No - Medications New Prescriptions: Atorvastatin Calcium 40 mg PO DAILY #30 tablet Furosemide [Lasix] 20 mg PO BID #60 tablet Lisinopril 5 mg PO DAILY #30 tablet Potassium Chloride 10 meq PO BID #60 capsule.er - Diet Type: No added salt Texture: Regular Liquids: Thin May have monthly special meal: Yes
[2019-06-06] MEDS ORDERED: DOCUSATE SODIUM 250 MG CAPSULE PO SCH (12:31)
[2019-06-06 17:21] VITALS: BP 132/68
== END 2019-06-06 15:54 | disposition home or self-care (01) ==
LOC: EDUNIT# → ED 15:38 → UNDOADMOB 19:51 → MS2 19:51
PROVIDERS: ADMIT Internal Medicine; ATTEND Specialist
DX: I21.4 Non-ST elevation (NSTEMI) myocardial infarction (principal); I50.23 Acute on chronic systolic (congestive) heart failure; I11.0 Hypertensive heart disease with heart failure; I08.2 Rheumatic disorders of both aortic and tricuspid valves; I25.10 Atherosclerotic heart disease of native coronary artery without angina pectoris; I48.91 Unspecified atrial fibrillation; M19.90 Unspecified osteoarthritis, unspecified site; F32.9 Major depressive disorder, single episode, unspecified; F41.9 Anxiety disorder, unspecified; M81.0 Age-related osteoporosis without current pathological fracture; R44.3 Hallucinations, unspecified; Z91.81 History of falling; J90 Pleural effusion, not elsewhere classified; E86.0 Dehydration; Z66 Do not resuscitate
CPT/HCPCS: 36415; 71045; 80048; 80053; 83690; 83880; 84484; 85025; 93005; 93306; 94761; 96372; 96374; 96376; 99284; 99285; A9270; G0378; J1650

== ENCOUNTER 2019-06-15 13:46 | Outpatient (CLI) | payer MEDICARE, MEDICAID | END 2019-06-15 23:59 | disposition home or self-care (01) | LOC: LAB.N 13:46 | PROVIDERS: ATTEND Nurse Practitioner Gerontology | DX: I50.9 Heart failure, unspecified (principal); R60.0 Localized edema | CPT/HCPCS: 36415; 83880 ==

== ENCOUNTER 2019-06-23 15:09 | Outpatient (CLI) | payer MEDICARE, MEDICAID | END 2019-06-23 15:10 | disposition critical access hospital (66) | LOC: EMS 15:09 | PROVIDERS: ATTEND Surgery | DX: R41.0 Disorientation, unspecified (principal); R53.1 Weakness | CPT/HCPCS: A0425; A0429 ==

== ENCOUNTER 2019-06-23 15:11 | Observation (INO) | payer MEDICARE, MEDICAID ==
--- NOTE | 2019-06-23 15:19 | ED Physician Documentation ---
History of Present Illness - Stated complaint Stated Complaint: WEAKNESS - Chief complaint Chief Complaint: General - History obtained from History obtained from: Patient (not any hx from pt d/t dementia/AMS), EMS - History of Present Illness Timing: Today (Reportedly became more altered today, decreased oral intake. Review of the chart shows recent and STEMI, critical aortic stenosis. Basically on comfort care. Everything is being medically managed. Patient has no specific complaints but is basically too altered to give any complaints.) Review of Systems Unable to obtain: AMS, Dementia PD PAST MEDICAL HISTORY - Past Medical History Cardiovascular: Congestive heart failure, Hypertension, Coronary artery disease, Atrial fibrillation Respiratory: Pneumonia Neuro: None Endocrine/Autoimmune: None GI: GERD AUTO OVERHAULER: None : None HEENT: None Psych: Depression, Anxiety Musculoskeletal: Osteoarthritis, Fibromyalgia, Osteoporosis, Scoliosis Derm: None - Past Surgical History Past Surgical History: Yes Ortho: Hip replacement HEENT: Tonsil/Adenoidectomy - Present Medications Home Medications: Ambulatory Orders Medication Instructions Recorded Confirmed Acetaminophen 2 tab PO Q6HR PRN 11/28/16 06/04/19 Amiodarone HCl 100 mg PO DAILY 11/28/16 06/04/19 Ascorbic Acid 1 tab PO DAILY 11/28/16 06/04/19 Aspirin 1 tab PO DAILY 11/28/16 06/04/19 Metoprolol Tartrate 12.5 mg PO BID 11/28/16 06/04/19 Polyethylene Glycol 3350 [Miralax] 17 gm PO DAILY PRN #1 bottle 11/11/18 06/04/19 Tramadol HCl 50 mg PO Q6H PRN #25 tablet 11/11/18 06/04/19 Calcitonin,[place],Synthetic 1 spray JACOB DAILY 06/05/19 06/05/19 [Calcitonin-[place]] Sertraline [Zoloft] 25 mg PO DAILY 06/05/19 06/05/19 Atorvastatin Calcium 40 mg PO DAILY #30 tablet 06/06/19 Furosemide [Lasix] 20 mg PO BID #60 tablet 06/06/19 Lisinopril 5 mg PO DAILY #30 tablet 06/06/19 Potassium Chloride 10 meq PO BID #60 capsule.er 06/06/19 - Allergies Allergies/Adverse Reactions: Allergies Allergy/AdvReac Type Severity Reaction Status Date / Time No Known Drug Allergies Allergy Verified 06/23/19 15:16 - Social History Does the pt smoke?: No Smoking Status: Unknown if ever smoked Does the pt drink ETOH?: No Does the pt have substance abuse?: No - Immunizations Immunizations are current?: No Immunizations: No immun - POLST Patient has POLST: No POLST Status: DNR PD ED PE NORMAL - Vitals Vital signs reviewed: Yes - General General: Other (She is alert makes eye contact, if I asked her anything, even her name she sort of just mumbles, does not make any sense. So she is not oriented even x1.) - HEENT HEENT: PERRL, EOMI - Neck Neck: Supple, no meningeal sign, No bony TTP - Cardiac Cardiac: RRR, Other (Shrill 4 out of 6 decrescendo holosystolic murmur heard best at the upper sternal borders) - Respiratory Respiratory: Other (Mildly diminished at the right base) - Abdomen Abdomen: Other (Mild upper abdominal tenderness without surgical signs) - Derm Derm: Normal color, Warm and dry - Extremities Extremities: No calf tenderness / cord, Other (No pedal edema) - Neuro Neuro: Other (Seems to move everything symmetrically, is not really following commands though so a little hard to tell) Eye Opening: Spontaneous Motor: Localizes to Pain Verbal: Inappropriate GCS Score: 12 Results - Vitals Vitals: Vital Signs - 24 hr 06/23/19 06/23/19 15:11 16:06 Temperature 36 C L Heart Rate 61 55 L Respiratory 20 29 H Rate Blood Pressure 160/94 H 153/86 H O2 Saturation 96 96 Oxygen O2 Source Room air - EKG (time done) 1525 Rate: Rate (enter#) (62) Rhythm: NSR Iron: LAD Intervals: Normal MS QRS: LVH Ischemia: Q waves (inferior) Computer interpretation: Agree with computer - Labs Labs: Laboratory Tests 06/23/19 06/23/19 06/23/19 15:35 15:35 15:35 WBC 5.2 RBC 5.01 Hgb 14.0 Hct 45.3 MCV 90.4 MCH 27.9 MCHC 30.9 L RDW 15.8 H Plt Count 188 MPV 11.5 H Neut # (Auto) 3.9 Lymph # (Auto) 0.7 L [place] # (Auto) 0.4 Eos # (Auto) 0.1 Baso # (Auto) 0.0 Absolute Nucleated RBC 0.00 Nucleated RBC % 0.0 PT 12.6 INR 1.1 Sodium 142 Potassium 4.3 Chloride 101 Carbon Dioxide 30 Anion Gap 11.0 BUN 20 Creatinine 0.7 Estimated GFR (MDRD) 79 L Glucose 98 Lactic Acid Calcium 8.6 Magnesium 2.2 Total Bilirubin 0.7 AST 21 ALT 15 Alkaline Phosphatase 54 Troponin I High Sens B-Natriuretic Peptide Total Protein 7.4 Albumin 3.9 Globulin 3.5 Albumin/Globulin Ratio 1.1 Lipase 35 Urine Color Urine Clarity Urine pH Ur Specific [place] Urine Protein Urine Glucose (UA) Urine Ketones Urine Occult Blood Urine Nitrite Urine Bilirubin Urine Urobilinogen Ur Leukocyte Esterase Ur Microscopic Review Urine Culture Comments 06/23/19 06/23/19 06/23/19 15:35 15:35 15:35 WBC RBC Hgb Hct MCV MCH MCHC RDW Plt Count MPV Neut # (Auto) Lymph # (Auto) [place] # (Auto) Eos # (Auto) Baso # (Auto) Absolute Nucleated RBC Nucleated RBC % PT INR Sodium Potassium Chloride Carbon Dioxide Anion Gap BUN Creatinine Estimated GFR (MDRD) Glucose Lactic Acid 1.1 Calcium Magnesium Total Bilirubin AST ALT Alkaline Phosphatase Troponin I High Sens 29.0 H* B-Natriuretic Peptide 6881.00 H Total Protein Albumin Globulin Albumin/Globulin Ratio Lipase Urine Color Urine Clarity Urine pH Ur Specific [place] Urine Protein Urine Glucose (UA) Urine Ketones Urine Occult Blood Urine Nitrite Urine Bilirubin Urine Urobilinogen Ur Leukocyte Esterase Ur Microscopic Review Urine Culture Comments 06/23/19 15:45 WBC RBC Hgb Hct MCV MCH MCHC RDW Plt Count MPV Neut # (Auto) Lymph # (Auto) [place] # (Auto) Eos # (Auto) Baso # (Auto) Absolute Nucleated RBC Nucleated RBC % PT INR Sodium Potassium Chloride Carbon Dioxide Anion Gap BUN Creatinine Estimated GFR (MDRD) Glucose Lactic Acid Calcium Magnesium Total Bilirubin AST ALT Alkaline Phosphatase Troponin I High Sens B-Natriuretic Peptide Total Protein Albumin Globulin Albumin/Globulin Ratio Lipase Urine Color YELLOW Urine Clarity CLEAR Urine pH 7.5 Ur Specific [place] 1.010 Urine Protein NEGATIVE Urine Glucose (UA) NEGATIVE Urine Ketones NEGATIVE Urine Occult Blood NEGATIVE Urine Nitrite NEGATIVE Urine Bilirubin NEGATIVE Urine Urobilinogen 0.2 (NORMAL) Ur Leukocyte Esterase NEGATIVE Ur Microscopic Review NOT INDICATED Urine Culture Comments NOT INDICATED PD MEDICAL DECISION MAKING - ED course Complexity details: reviewed old records ED course: 88-year-old with dementia, critical aortic stenosis. Presents by ambulance for altered mental status today and she is significantly altered. Examination is otherwise nonfocal. Confirmed with daughter DNR/DNI/medical management only, no TAVR. No specific cause found. Pleural effusion and BNP are stable. Troponin is in significantly elevated compared with prior. Daughter would like her observed. Spoke with spoke with Dr. Phillips for same at 5 PM. I discussed with the daughter that they should be considering hospice. Departure - Departure Disposition: ED Place in Observation Clinical Impression: Murmur, cardiac, Critical aortic valve stenosis Altered mental status Qualifiers: Altered mental status type: delirium Qualified Code(s): R41.0 - Disorientation, unspecified Condition: Stable
[2019-06-23 15:39] LABS: BASOPHILS % (AUTO) 0.6 %; EOSINOPHILS # (AUTO) 0.1 10^3/uL (0.0-0.7); EOSINOPHILS % (AUTO) 2.1 %; LYMPHOCYTES # (AUTO) 0.7 10^3/uL (1.5-3.5); MEAN CORPUSCULAR HEMOGLOBIN 27.9 pg (27.0-31.0); MEAN CORPUSCULAR HGB CONC 30.9 g/dL (32.0-36.0); MEAN CORPUSCULAR VOLUME 90.4 fL (81.0-99.0); MEAN PLATELET VOLUME 11.5 fL (7.9-10.8); MONOCYTES # (AUTO) 0.4 10^3/uL (0.0-1.0); MONOCYTES % (AUTO) 7.9 %; NEUTROPHILS # (AUTO) 3.9 10^3/uL (1.5-6.6); NEUTROPHILS % (AUTO) 76.2 %; PLT - PLATELET COUNT 188 10^3/uL (130-450); RED BLOOD COUNT 5.01 10^6/uL (4.20-5.40); RED CELL DISTRIBUTION WIDTH 15.8 % (12.0-15.0); WHITE BLOOD COUNT 5.2 x10^3/uL (4.8-10.8)
[2019-06-23 15:55] LABS: ALBUMIN 3.9 g/dL (3.2-5.5); ALBUMIN/GLOBULIN RATIO 1.1 (1.0-2.2); BILIRUBIN,TOTAL 0.7 mg/dL (0.2-1.0); CALCIUM 8.6 mg/dL (8.5-10.3); CREATININE 0.7 mg/dL (0.4-1.0); MAGNESIUM 2.2 mg/dL (1.7-2.8); TOTAL PROTEIN 7.4 g/dL (6.7-8.2)
[2019-06-23 16:03] LABS: INR 1.1 (0.8-1.2); PT - PROTHROMBIN TIME 12.6 secs (9.9-12.6)
[2019-06-23 16:07] LABS: BILIRUBIN,URINE NEGATIVE (NEGATIVE); GLUCOSE, URINE (UA) NEGATIVE (NEGATIVE); KETONES,URINE (UA) NEGATIVE (NEGATIVE); LEUKOCYTE ESTERASE, URINE NEGATIVE (NEGATIVE); NITRITE,URINE NEGATIVE (NEGATIVE); OCCULT BLOOD,URINE NEGATIVE (NEGATIVE); PH,URINE 7.5 PH (5.0-7.5); PROTEIN,URINE NEGATIVE (NEGATIVE); UROBILINOGEN,URINE 0.2 (NORMAL) E.U./dL (NORMAL)
[2019-06-23 16:10] LABS: CLARITY,URINE CLEAR (CLEAR)
--- NOTE | 2019-06-23 16:10 | XRAY Report ---
Reason: altered Procedure Date: 06/23/2019 Accession Number: [id number] / [id number] Procedure: XR - Chest 1 View X-Ray CPT Code: 39929 Final Report FULL RESULT: EXAM: CHEST RADIOGRAPHY EXAM DATE: 06/23/2019 03:42 PM. CLINICAL HISTORY: Altered mental status. COMPARISON: CHEST 1 VIEW 06/04/2019 4:31 PM. TECHNIQUE: 1 view. FINDINGS: Lungs/Pleura: Moderate to large left pleural effusion again seen. Improved right basilar opacity and near resolution of small right pleural effusion. Dense left basilar opacity is similar. No pneumothorax. Vasculature is prominent. Mediastinum: Heart is enlarged. Aorta is tortuous. Saccular dilatation along the aortic arch and proximal descending thoracic again noted. Aortic atherosclerosis. Other: None. IMPRESSION: 1. Cardi megaly. Borderline vascular congestion. 2. Moderate left pleural effusion and dense left basilar opacity without significant change. 3. Improved right basilar opacity and right pleural effusion. RADIA
[2019-06-23] MEDS ORDERED: SODIUM CHLORIDE FLUSH 0.9% 10 ML SYRINGE IVP PRN (17:30)
[2019-06-23] MEDS ORDERED: MIN OIL/DIMETHICON/COCONUT OIL 92 GM TUBE TOP PRN (18:41)
--- NOTE | 2019-06-23 18:48 | HISTORY & PHYSICAL EXAMINATION ---
Chief Complaint - Chief Complaint Chief Complaint: Confusion History of Present Illness - Admitted From Admitted From:: [facility] - History Obtained From Records Reviewed: Yes History obtained from: Daughters, ER Physician, EMR Exam Limitations: Patient is altered - History of Present Illness HPI Comment/Other: This is an 88-year-old female with a past medical history significant for CHF with reduced ejection fraction, severe aortic stenosis, dementia, and paroxysmal atrial fibrillation who presents from [facility] due to confusion. History is obtained from the daughter as the patient is altered and does not answer questions appropriately. Her daughters tell me that she was in her usual state of health up until this morning. They noticed that she was quite confused and did not eat her breakfast. Her last known normal was last night when one of her daughters spoke to her on the phone. She noted that patient was slightly confused but she was not nearly as altered as she is today. She reports her mother did not have any complaints for the past few days and has been doing well. They do note that she has not been eating or drinking much over the past few weeks.They have never seen their mother like this before. They bring her POLST form with them today which states that she is a DNR with limited interventions. In the emergency department, her vitals were unremarkable. Her labs were also unremarkable except for troponin in the 20s. Her EKG revealed sinus rhythm with LVH. No obvious ST segment changes. It is relatively unchanged compared to her last EKG. Given her altered mental status without clear etiology. She will be admitted for further management. History - Past Medical History Cardiovascular: reports: Congestive heart failure, Hypertension, Coronary artery disease, Atrial fibrillation, Other Respiratory: reports: Pneumonia Neuro: reports: None Endocrine/Autoimmune: reports: None GI: reports: GERD, Chronic constipation MINE [employer]IC: reports: None : reports: None HEENT: reports: None Psych: reports: Depression, Anxiety Musculoskeletal: reports: Osteoarthritis, Fibromyalgia, Osteoporosis, Scoliosis Derm: reports: None MRSA Hx?: No Other Past Medical History: critical aortic stenosis, collapsed vetebra - Past Surgical History Ortho: reports: Hip replacement HEENT: reports: Tonsil/Adenoidectomy - Family & Social History Family History Comment/Other: Motherh ad rheumatic fever, hypertension and CHF. Social History Notes: She resides at [facility]. No tobacco or alcohol use. She was living independently up until 6 months ago. - POLST Patient has POLST: No POLST Status: DNR Meds/Allgy - Home Medications Home Medications: Ambulatory Orders Medication Instructions Recorded Confirmed Acetaminophen 2 tab PO Q6HR PRN 11/28/16 06/04/19 Amiodarone HCl 100 mg PO DAILY 11/28/16 06/04/19 Ascorbic Acid 1 tab PO DAILY 11/28/16 06/04/19 Aspirin 1 tab PO DAILY 11/28/16 06/04/19 Metoprolol Tartrate 12.5 mg PO BID 11/28/16 06/04/19 Polyethylene Glycol 3350 [Miralax] 17 gm PO DAILY PRN #1 bottle 11/11/18 06/04/19 Tramadol HCl 50 mg PO Q6H PRN #25 tablet 11/11/18 06/04/19 Calcitonin,[place],Synthetic 1 spray JACOB DAILY 06/05/19 06/05/19 [Calcitonin-[place]] Sertraline [Zoloft] 25 mg PO DAILY 06/05/19 06/05/19 Atorvastatin Calcium 40 mg PO DAILY #30 tablet 06/06/19 Furosemide [Lasix] 20 mg PO BID #60 tablet 06/06/19 Lisinopril 5 mg PO DAILY #30 tablet 06/06/19 Potassium Chloride 10 meq PO BID #60 capsule.er 06/06/19 - Allergies Allergies/Adverse Reactions: Allergies Allergy/AdvReac Type Severity Reaction Status Date / Time No Known Drug Allergies Allergy Verified 06/23/19 15:16 Review of Systems - All Other Systems All Other Systems: reports: Other (Unable to obtain review of systems due to her mental status.) Prior Level of Functionality: Resides at [facility]. She has been there since December of this year. Family reports that she has been slowly declining over the last few months. Exam - Vital Signs Reviewed Vital Signs: Yes Vital Signs: Vital Signs x48h Temp Pulse Pulse Resp BP BP Pulse Ox 06/23/19 18:00 36.3 C L 58 L 16 180/76 H 97 06/23/19 16:06 55 L 29 H 153/86 H 96 06/23/19 15:11 36 C L 61 20 160/94 H 96 - Physical Exam General Appearance: positive: No acute distress, Alert Eyes Bilateral: positive: Normal inspection ENT: positive: ENT inspection nml Neck: positive: Nml inspection Respiratory: positive: No respiratory distress. negative: Wheezes, Rales Cardiovascular: positive: Regular rate & rhythm, Systolic murmur. negative: Tachycardia, Bradycardia Abdomen: positive: Non-tender, No distention. negative: Tenderness, Guarding, Rebound Skin: positive: No rash, Warm, Dry Extremities: positive: No pedal edema Neurologic/Psychiatric: positive: Other (She is awake and speaks random se ntences. Does not answer questions appropriately. She is moving all 4 extremities. Does not follow commands unable to assess clearly for focal motor deficits. No clonus.) Conclusion/Plan - Problem List (1) Encephalopathy acute Conclusion/Plan: The etiology of her encephalopathy at this time is not clear. Her labs are unremarkable. Her urinalysis is unremarkable. She does have some slurred speech but no obvious focal motor deficits on exam although she is not following commands and therefore difficult to assess. Differential at this time include unclear infectious process of her stroke. Will obtain a CT of the head. Will check ammonia level, TSH.Keep her n.p.o. at this time. Will consider gentle hydration as she appears mildly dehydrated. (2) Chronic HFrEF (heart failure with reduced ejection fraction) Conclusion/Plan: This is a recently new diagnosis for her and is associated with critical aortic stenosis. Although her BNP is elevated, she appears euvolemic on exam. She is also saturating well on room air. Will resume her home medications when she is able to take p.o. (3) Critical aortic valve stenosis Conclusion/Plan: She has critical aortic stenosis with a aortic valve area less than 0.3. Family has chosen to go with medical management only. (4) Atrial fibrillation Conclusion/Plan: He has paroxysmal atrial fibrillation. She is currently rate controlled and in sinus rhythm. We will continue her home metoprolol and amiodarone when she is taking p.o. (5) Hypothyroidism Conclusion/Plan: Last TSH was elevated at 12 with a normal T4. We will check another TSH given her altered mental status. Will resume her home Synthroid once taking p.o. - Lab Results Lab results reviewed: Yes Fish Bones: 06/23/19 15:35 06/23/19 15:35 - Diagnostic Imaging Results Diagnostic Imaging Results: positive: Final report reviewed - EKG Results EKG Interpreted Independently: Yes EKG Comparison: Unchanged from prior EKG EKG Findings: Her EKG reveals sinus rhythm with LVH. No obvious ischemic changes. It is unchanged compared to her prior EKG. Core Measures - Anticipated LOS I expect patient to be DC'd or transferred within 96 hours.: Yes - Issues Hospital Issues and Management Plan: Encephalopathy of unclear etiology. Will admit for further work-up including stroke and infectious. - DVT/VTE - Prophylaxis VTE/DVT Device ordered at admit?: Yes VTE/DVT Prophylaxis med ordered at admit?: Yes
[2019-06-23 18:53] LABS: THYROID STIMULATING HORMONE 12.99 uIU/mL (0.34-5.60)
[2019-06-23 18:55] LABS: FREE T4 (FREE THYROXINE) 0.77 ng/dL (0.58-1.64)
--- NOTE | 2019-06-23 19:18 | CT Report ---
Reason: Encephalopathy. Slurred speech. Procedure Date: 06/23/2019 Accession Number: [id number] / [id number] Procedure: CT - HEAD WO CPT Code: Final Report FULL RESULT: EXAM: CT HEAD EXAM DATE: 06/23/2019 06:33 PM. CLINICAL HISTORY: 88-year-old female Encephalopathy. Slurred speech. COMPARISON: CT head 11/28/2016 TECHNIQUE: Multiaxial CT images were obtained from the foramen magnum to the vertex. Reformats: Sagittal and coronal. IV contrast: None. In accordance with CT protocol optimization, one or more of the following dose reduction techniques were utilized for this exam: automated exposure control, adjustment of mA and/or KV based on patient size, or use of iterative reconstructive technique. 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 No evidence of hemorrhagic transformation. No intraparenchymal hemorrhage. No evidence of mass, midline shift. Fraga-white differentiation is otherwise distinct. Diffuse chronic microangiopathic white matter changes are evident. Extraaxial Spaces: Normal for age. No subdural or epidural collections identified. Ventricles: The ventricles and cortical sulci are enlarged, consistent with age-related tissue loss. Sinuses and orbits: Imaged paranasal sinuses, orbits, and mastoids show no significant abnormality. Bones: No evidence of fracture or calvarial defect. Other: None. IMPRESSION: 1. 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 ASPECTS 8. 2. No evidence of hemorrhagic transformation. RADIA The critical result notification system was initiated by Dr. Armando Shannon at 07:12 PM on 06/23/2019. The above critical result findings were discussed with Dr. Vallejo by Dr. Armando Shannon at 07:16 PM on 06/23/2019.
[2019-06-23] MEDS ORDERED: ASPIRIN 300 MG SUPP PR STA (19:48)
[2019-06-24 04:54] LABS: BASOPHILS % (AUTO) 0.6 %; EOSINOPHILS # (AUTO) 0.2 10^3/uL (0.0-0.7); EOSINOPHILS % (AUTO) 3.7 %; HGB - HEMOGLOBIN 12.7 g/dL (12.0-16.0); LYMPHOCYTES # (AUTO) 0.8 10^3/uL (1.5-3.5); LYMPHOCYTES % (AUTO) 14.6 %; MEAN CORPUSCULAR HEMOGLOBIN 26.5 pg (27.0-31.0); MEAN CORPUSCULAR VOLUME 88.3 fL (81.0-99.0); MONOCYTES # (AUTO) 0.5 10^3/uL (0.0-1.0); MONOCYTES % (AUTO) 9.2 %; NEUTROPHILS # (AUTO) 3.7 10^3/uL (1.5-6.6); NEUTROPHILS % (AUTO) 71.7 %; PLT - PLATELET COUNT 176 10^3/uL (130-450); RED BLOOD COUNT 4.79 10^6/uL (4.20-5.40); RED CELL DISTRIBUTION WIDTH 15.9 % (12.0-15.0); WHITE BLOOD COUNT 5.1 x10^3/uL (4.8-10.8)
[2019-06-24 04:59] LABS: CALCIUM 8.7 mg/dL (8.5-10.3); CREATININE 0.6 mg/dL (0.4-1.0); MAGNESIUM 2.1 mg/dL (1.7-2.8)
[2019-06-24] MEDS: SODIUM CHLORIDE FLUSH 0.9% 10 ML SYRINGE IVP SCH ×3 (05:46→17:10)
[2019-06-24] MEDS ORDERED: PHENOL THROAT SPRAY 177 ML MM PRN (11:14)
--- NOTE | 2019-06-24 13:03 | PROVIDER PROGRESS NOTE ---
Subjective - Prog Note Date Prog Note Date: 06/24/19 - Subjective Subjective: CT of the head yesterday revealed a large left MCA stroke. The patient continues to be altered. She is able to answer questions and at times they appear to be appropriate and at other times, the answers are inappropriate. She is mostly mumbling random words. Both daughters are present at bedside. Current Medications - Current Medications Current Medications: Active Medications Atorvastatin Calcium (Lipitor) 80 mg PO QPM [facility] Clopidogrel Bisulfate (Plavix) 75 mg PO DAILY [facility] Last Admin: 06/24/19 14:30 Dose: 75 mg Levothyroxine Sodium (Synthroid) 50 mcg PO QDAC [facility] Metoprolol Succinate (Toprol Xl) 12.5 mg PO DAILY [facility] Mineral Oil (Cavilon) 1 applic TOP PRN PRN PRN Reason: Skin Care Last Admin: 06/23/19 19:47 Dose: 1 applic Phenol/Menthol (Chloraseptic) 2 sprays MM Q2HR PRN PRN Reason: Throat Pain Last Admin: 06/24/19 11:27 Dose: 2 sprays Sodium Chloride (Normal Saline Flush 0.9%) 10 ml IVP PRN PRN PRN Reason: NEEDED PER PROVIDER ORDERS Sodium Chloride (Normal Saline Flush 0.9%) 10 ml IVP 0100,0900,1700 [facility] Last Admin: 06/24/19 12:51 Dose: 10 ml Acetaminophen 650 mg PO Q6HR PRN 11/28/16 Amiodarone HCl 100 mg PO DAILY 11/28/16 Ascorbic Acid 500 mg PO DAILY 11/28/16 Aspirin 81 mg PO DAILY 11/28/16 Metoprolol Tartrate 12.5 mg PO BID 11/28/16 Calcitonin,Hurley,Synthetic [Calcitonin-Hurley] 1 spray JACOB DAILY 06/05/19 Sertraline [Zoloft] 25 mg PO DAILY 06/05/19 Ibuprofen [Motrin] 600 mg PO DAILY PRN 06/24/19 Levothyroxine Sodium 50 mcg PO QDAC 06/24/19 Potassium Chloride 10 meq PO DAILY 06/24/19 Objective - Vital Signs/Intake & Output Reviewed Vital Signs: Yes Vital Signs: Vital Signs x48h Temp Pulse Resp BP Pulse Ox 06/24/19 11:56 36.7 C 64 20 143/82 H 96 06/24/19 07:22 36.6 C 61 27 H 153/92 H 95 Intake & Output: Intake & Output 06/21/19 06/22/19 06/23/19 06/24/19 23:59 23:59 23:59 23:59 Intake Total 0 Output Total 200 0 Balance -200 0 - Objective General Appearance: positive: No acute distress, Alert, Mild distress Eyes Bilateral: positive: Normal inspection ENT: positive: ENT inspection nml, Dry mucous membranes Neck: positive: Nml inspection Respiratory: positive: No respiratory distress. negative: Wheezes, Rales, Rhonchi Cardiovascular: positive: Regular rate & rhythm, Systolic murmur. negative: Tachycardia, Bradycardia Abdomen: positive: Non-tender, No distention. negative: Tenderness Skin: positive: No rash, Warm, Dry Extremities: positive: No pedal edema Neurologic/Psychiatric: positive: Disoriented to person, Disoriented to place, Disoriented to time, Other (She is not oriented to person, place, time. She is able to move all 4 extremities. She is able to answer questions although more of ten than not, the answers do not make sense. She is unable to state the names of her daughters at bedside.) - Lab Results Fish Bones: 06/24/19 04:15 06/24/19 04:15 Other Labs: Lab Results x24hrs 06/24/19 06/24/19 06/23/19 Range/Units 04:15 04:15 17:45 WBC 5.1 (4.8-10.8) x10^3/uL RBC 4.79 (4.20-5.40) 10^6/uL Hgb 12.7 (12.0-16.0) g/dL Hct 42.3 (37.0-47.0) % MCV 88.3 (81.0-99.0) fL MCH 26.5 L (27.0-31.0) pg MCHC 30.0 L (32.0-36.0) g/dL RDW 15.9 H (12.0-15.0) % Plt Count 176 (130-450) 10^3/uL MPV 12.0 H (7.9-10.8) fL Neut # (Auto) 3.7 (1.5-6.6) 10^3/uL Lymph # (Auto) 0.8 L (1.5-3.5) 10^3/uL [place] # (Auto) 0.5 (0.0-1.0) 10^3/uL Eos # (Auto) 0.2 (0.0-0.7) 10^3/uL Baso # (Auto) 0.0 (0.0-0.1) 10^3/uL Absolute Nucleated RBC 0.00 x10^3/uL Nucleated RBC % 0.0 /100WBC PT (9.9-12.6) secs INR (0.8-1.2) Sodium 142 (135-145) mmol/L Potassium 3.9 (3.5-5.0) mmol/L Chloride 103 (101-111) mmol/L Carbon Dioxide 29 (21-32) mmol/L Anion Gap 10.0 (6-13) BUN 21 H (6-20) mg/dL Creatinine 0.6 (0.4-1.0) mg/dL Estimated GFR (MDRD) 94 (>89) Glucose 71 (70-100) mg/dL Lactic Acid (0.5-2.2) mmol/L Calcium 8.7 (8.5-10.3) mg/dL Magnesium 2.1 (1.7-2.8) mg/dL Total Bilirubin (0.2-1.0) mg/dL AST (10-42) IU/L ALT (10-60) IU/L Alkaline Phosphatase (42-121) IU/L Ammonia (7-35) umol/L Troponin I High Sens 31.3 H* (2.3-14.8) ng/L B-Natriuretic Peptide (5-100) pg/mL Total Protein (6.7-8.2) g/dL Albumin (3.2-5.5) g/dL Globulin (2.1-4.2) g/dL Albumin/Globulin Ratio (1.0-2.2) Lipase (22-51) U/L Vitamin B12 (180-914) pg/mL TSH (0.34-5.60) uIU/mL Free T4 (0.58-1.64) ng/dL Urine Color Urine Clarity (CLEAR) Urine pH (5.0-7.5) PH Ur Specific [place] (1.002-1.030) Urine Protein (NEGATIVE) mg/dL Urine Glucose (UA) (NEGATIVE) mg/dL Urine Ketones (NEGATIVE) mg/dL Urine Occult Blood (NEGATIVE) Urine Nitrite (NEGATIVE) Urine Bilirubin (NEGATIVE) Urine Urobilinogen (NORMAL) E.U./dL Ur Leukocyte Esterase (NEGATIVE) Ur Microscopic Review Urine Culture Comments 06/23/19 06/23/19 06/23/19 Range/Units 17:45 17:45 15:45 WBC (4.8-10.8) x10^3/uL RBC (4.20-5.40) 10^6/uL Hgb (12.0-16.0) g/dL Hct (37.0-47.0) % MCV (81.0-99.0) fL MCH (27.0-31.0) pg MCHC (32.0-36.0) g/dL RDW (12.0-15.0) % Plt Count (130-450) 10^3/uL MPV (7.9-10.8) fL Neut # (Auto) (1.5-6.6) 10^3/uL Lymph # (Auto) (1.5-3.5) 10^3/uL [place] # (Auto) (0.0-1.0) 10^3/uL Eos # (Auto) (0.0-0.7) 10^3/uL Baso # (Auto) (0.0-0.1) 10^3/uL Absolute Nucleated RBC x10^3/uL Nucleated RBC % /100WBC PT (9.9-12.6) secs INR (0.8-1.2) Sodium (135-145) mmol/L Potassium (3.5-5.0) mmol/L Chloride (101-111) mmol/L Carbon Dioxide (21-32) mmol/L Anion Gap (6-13) BUN (6-20) mg/dL Creatinine (0.4-1.0) mg/dL Estimated GFR (MDRD) (>89) Glucose (70-100) mg/dL Lactic Acid (0.5-2.2) mmol/L Calcium (8.5-10.3) mg/dL Magnesium (1.7-2.8) mg/dL Total Bilirubin (0.2-1.0) mg/dL AST (10-42) IU/L ALT (10-60) IU/L Alkaline Phosphatase (42-121) IU/L Ammonia < 10.0 (7-35) umol/L Troponin I High Sens (2.3-14.8) ng/L B-Natriuretic Peptide (5-100) pg/mL Total Protein (6.7-8.2) g/dL Albumin (3.2-5.5) g/dL Globulin (2.1-4.2) g/dL Albumin/Globulin Ratio (1.0-2.2) Lipase (22-51) U/L Vitamin B12 309 (180-914) pg/mL TSH 12.99 H (0.34-5.60) uIU/mL Free T4 0.77 (0.58-1.64) ng/dL Urine Color YELLOW Urine Clarity CLEAR (CLEAR) Urine pH 7.5 (5.0-7.5) PH Ur Specific [place] 1.010 (1.002-1.030) Urine Protein NEGATIVE (NEGATIVE) mg/dL Urine Glucose (UA) NEGATIVE (NEGATIVE) mg/dL Urine Ketones NEGATIVE (NEGATIVE) mg/dL Urine Occult Blood NEGATIVE (NEGATIVE) Urine Nitrite NEGATIVE (NEGATIVE) Urine Bilirubin NEGATIVE (NEGATIVE) Urine Urobilinogen 0.2 (NORMAL) (NORMAL) E.U./dL Ur Leukocyte Esterase NEGATIVE (NEGATIVE) Ur Microscopic Review NOT INDICATED Urine Culture Comments NOT INDICATED 06/23/19 06/23/19 06/23/19 Range/Units 15:35 15:35 15:35 WBC (4.8-10.8) x10^3/uL RBC (4.20-5.40) 10^6/uL Hgb (12.0-16.0) g/dL Hct (37.0-47.0) % MCV (81.0-99.0) fL MCH (27.0-31.0) pg MCHC (32.0-36.0) g/dL RDW (12.0-15.0) % Plt Count (130-450) 10^3/uL MPV (7.9-10.8) fL Neut # (Auto) (1.5-6.6) 10^3/uL Lymph # (Auto) (1.5-3.5) 10^3/uL [place] # (Auto) (0.0-1.0) 10^3/uL Eos # (Auto) (0.0-0.7) 10^3/uL Baso # (Auto) (0.0-0.1) 10^3/uL Absolute Nucleated RBC x10^3/uL Nucleated RBC % /100WBC PT (9.9-12.6) secs INR (0.8-1.2) Sodium (135-145) mmol/L Potassium (3.5-5.0) mmol/L Chloride (101-111) mmol/L Carbon Dioxide (21-32) mmol/L Anion Gap (6-13) BUN (6-20) mg/dL Creatinine (0.4-1.0) mg/dL Estimated GFR (MDRD) (>89) Glucose (70-100) mg/dL Lactic Acid 1.1 (0.5-2.2) mmol/L Calcium (8.5-10.3) mg/dL Magnesium (1.7-2.8) mg/dL Total Bilirubin (0.2-1.0) mg/dL AST (10-42) IU/L ALT (10-60) IU/L Alkaline Phosphatase (42-121) IU/L Ammonia (7-35) umol/L Troponin I High Sens 29.0 H* (2.3-14.8) ng/L B-Natriuretic Peptide 6881.00 H (5-100) pg/mL Total Protein (6.7-8.2) g/dL Albumin (3.2-5.5) g/dL Globulin (2.1-4.2) g/dL Albumin/Globulin Ratio (1.0-2.2) Lipase (22-51) U/L Vitamin B12 (180-914) pg/mL TSH (0.34-5.60) uIU/mL Free T4 (0.58-1.64) ng/dL Urine Color Urine Clarity (CLEAR) Urine pH (5.0-7.5) PH Ur Specific [place] (1.002-1.030) Urine Protein (NEGATIVE) mg/dL Urine Glucose (UA) (NEGATIVE) mg/dL Urine Ketones (NEGATIVE) mg/dL Urine Occult Blood (NEGATIVE) Urine Nitrite (NEGATIVE) Urine Bilirubin (NEGATIVE) Urine Urobilinogen (NORMAL) E.U./dL Ur Leukocyte Esterase (NEGATIVE) Ur Microscopic Review Urine Culture Comments 06/23/19 06/23/19 06/23/19 Range/Units 15:35 15:35 15:35 WBC 5.2 (4.8-10.8) x10^3/uL RBC 5.01 (4.20-5.40) 10^6/uL Hgb 14.0 (12.0-16.0) g/dL Hct 45.3 (37.0-47.0) % MCV 90.4 (81.0-99.0) fL MCH 27.9 (27.0-31.0) pg MCHC 30.9 L (32.0-36.0) g/dL RDW 15.8 H (12.0-15.0) % Plt Count 188 (130-450) 10^3/uL MPV 11.5 H (7.9-10.8) fL Neut # (Auto) 3.9 (1.5-6.6) 10^3/uL Lymph # (Auto) 0.7 L (1.5-3.5) 10^3/uL [place] # (Auto) 0.4 (0.0-1.0) 10^3/uL Eos # (Auto) 0.1 (0.0-0.7) 10^3/uL Baso # (Auto) 0.0 (0.0-0.1) 10^3/uL Absolute Nucleated RBC 0.00 x10^3/uL Nucleated RBC % 0.0 /100WBC PT 12.6 (9.9-12.6) secs INR 1.1 (0.8-1.2) Sodium 142 (135-145) mmol/L Potassium 4.3 (3.5-5.0) mmol/L Chloride 101 (101-111) mmol/L Carbon Dioxide 30 (21-32) mmol/L Anion Gap 11.0 (6-13) BUN 20 (6-20) mg/dL Creatinine 0.7 (0.4-1.0) mg/dL Estimated GFR (MDRD) 79 L (>89) Glucose 98 (70-100) mg/dL Lactic Acid (0.5-2.2) mmol/L Calcium 8.6 (8.5-10.3) mg/dL Magnesium 2.2 (1.7-2.8) mg/dL Total Bilirubin 0.7 (0.2-1.0) mg/dL AST 21 (10-42) IU/L ALT 15 (10-60) IU/L Alkaline Phosphatase 54 (42-121) IU/L Ammonia (7-35) umol/L Troponin I High Sens (2.3-14.8) ng/L B-Natriuretic Peptide (5-100) pg/mL Total Protein 7.4 (6.7-8.2) g/dL Albumin 3.9 (3.2-5.5) g/dL Globulin 3.5 (2.1-4.2) g/dL Albumin/Globulin Ratio 1.1 (1.0-2.2) Lipase 35 (22-51) U/L Vitamin B12 (180-914) pg/mL TSH (0.34-5.60) uIU/mL Free T4 (0.58-1.64) ng/dL Urine Color Urine Clarity (CLEAR) Urine pH (5.0-7.5) PH Ur Specific [place] (1.002-1.030) Urine Protein (NEGATIVE) mg/dL Urine Glucose (UA) (NEGATIVE) mg/dL Urine Ketones (NEGATIVE) mg/dL Urine Occult Blood (NEGATIVE) Urine Nitrite (NEGATIVE) Urine Bilirubin (NEGATIVE) Urine Urobilinogen (NORMAL) E.U./dL Ur Leukocyte Esterase (NEGATIVE) Ur Microscopic Review Urine Culture Comments ABX Reporting Has patient been on IV antibiotics over the past 48 hours?: No Assessment/Plan - Problem List (1) Acute ischemic left MCA stroke Impression: This is evident on the CT of the head which showed diffuse loss of sparks-white differentiation involving the posterior left MCA, left temporal, lateral occipital, and parietal lobes. The transverse dimensions measured approximately 7.5 x 3.2 cm. 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 She was given a rectal aspirin yesterday.Discussed with family at bedside regarding goals of care given she is a DNR and her POLST form states she would like limited interventions.Given the size of the stroke, her prognosis is likely quite poor when also taking into consideration her severe aortic stenosis and heart failure. The daughters believe she would like to focus on comfort measures and they are agreeable to hospice. We will not obtain an MRI for further work-up given we will be pursuing comfort measures. Will discuss with child welfare social worker regarding disposition. She will benefit from hospice and this can be done on an outpatient basis. Will continue Statin and start her on Plavix. We did discuss that she is likely a high risk for aspiration. We did agree to feeding her despite this risk. (2) Encephalopathy acute Impression: This is secondary to stroke. No obvious signs of infection as a cause of her altered mental status per (3) Chronic HFrEF (heart failure with reduced ejection fraction) Impression: She appears euvolemic at this time. Resume cardiac medications. (4) Critical aortic valve stenosis Impression: She has critical aortic stenosis with an aortic valve area less than 0.3. Family had chosen medical management prior to the stroke. (5) Atrial fibrillation Impression: She remains rate controlled at this time. Resume Metoprolol. (6) Hypothyroidism Impression: Stable. Resume Synthroid.
--- NOTE | 2019-06-24 13:12 | ADVANCE CARE PLANNING NOTE ---
Advance Care Planning - Planning Encounter Date: 06/24/19 Time: 10:00 Purpose: Discuss goals of care. Parties in Attendance: The patient's daughters, Kandy and Jade were present. Decisional Capacity of the Patient: The patient is unable to make her own medical decisions given her acute stroke and encephalopathy. She does have a POLST form from before stating she is a DNR and would like limited interventions. - Diagnosis for Encounter (1) Acute ischemic left MCA stroke Summary: This is a new diagnosis for the patient and likely explains her acute encepha lopathy. The stroke is quite large on imaging and her prognosis is quite guarded.Fortunately she does not have focal motor deficits but she is disoriented and does not answer questions appropriately. She does not recognize her family. (2) Chronic HFrEF (heart failure with reduced ejection fraction) Summary: This was a recently new diagnosis for her and her ejection fraction is reduced at 30 to 35%. This is also in the setting of critical aortic stenosis. Fortunately she does not appear to be in acute heart failure at this time. (3) Critical aortic valve stenosis Summary: She has critical aortic valve stenosis given aortic valve area of 0.3. - Encounter Subjective/Patient's Story: Her daughters report that the patient lost her approximately 8 years ago. She had been living independently up until 6 months ago. She had a hip fracture 3 years ago which was repaired at [place]. Even after the hip fracture she was doing quite well although her mobility was somewhat limited. They noticed over the last 6 months that she has had cognitive decline consi stent with likely dementia. She is still able to recognize her daughters and converse with them. She has been staying at [facility] and been doing relatively ok. She has not been eating as much over the last few weeks. Objective/Medical Story: She was admitted earlier this month at the routine labs found her to have an elevated troponin and BNP. At that time an echocardiogram revealed new heart failure with an ejection fraction of 30% as well as severe aortic stenosis with an aortic valve area of 0.3. A decision was made to medically manage her. She signed a POLST form that stated she is a DNR with limited interventions. Her daughter state that over the last 2 weeks she had been doing well up until the sudden onset of acute confusion which brings us to this current hospitalization Goals of Care: The patient already had a POLST form which stated she is a DNR with limited interventions. After discussing with Kandy and Jade regarding her mother's current condition, they feel that she would want to pursue comfort measures.We did discuss that this is quite a large stroke and is difficult to gauge how her mental status will be in the future. We did discuss the concern for aspiration when she is eating. Kandy asked if we should continue the patient's home medications. I informed them that there is no right or wrong answer to that question. There is always the risk of aspiration and her cardiac medications may prevent her from going to heart failure which can prolong her life for a period of time. The concern is that with a stroke she will have decreased intake and when she is eating she could aspirate and develop a pneumonia.We did discuss the idea of a feeding tube but we all agreed that this would not coinc helen with Sandy's wishes. They would like to take her back to [facility] if possible although they are concerned that their mother will require a lot of care and they are not sure if [facility] will be able to provide this. Plan: After discussion, we feel it will be best to continue some of her essential medications. These medications can always be discontinued on outpatient basis if it is felt that they are not providing her with much benefit. We will give her a diet as tolerated. We will discuss with social work regarding disposition plan. The family is agreeable to hospice and if she remains hospitalized overnight, we will have hospice meet the patient and family tomorrow. If we are able to find a safe discharge plan for today, they can meet hospice on an outpatient basis. Code Status: Do Not Attempt Resuscitation Time spent on advance care plannin
[2019-06-24] MEDS: CLOPIDOGREL 75 MG TABLET PO SCH (14:30)
[2019-06-24] MEDS: ATORVASTATIN 40 MG TABLET PO SCH (21:43)
[2019-06-24] MEDS ORDERED: ACETAMINOPHEN 500 MG TABLET PO PRN (22:38)
[2019-06-25] MEDS: SODIUM CHLORIDE FLUSH 0.9% 10 ML SYRINGE IVP SCH ×3 (04:38→17:08)
[2019-06-25 05:23] LABS: BASOPHILS # (AUTO) 0.1 10^3/uL (0.0-0.1); EOSINOPHILS # (AUTO) 0.2 10^3/uL (0.0-0.7); EOSINOPHILS % (AUTO) 3.8 %; HGB - HEMOGLOBIN 13.6 g/dL (12.0-16.0); LYMPHOCYTES # (AUTO) 0.7 10^3/uL (1.5-3.5); LYMPHOCYTES % (AUTO) 14.4 %; MEAN CORPUSCULAR HEMOGLOBIN 27.6 pg (27.0-31.0); MEAN CORPUSCULAR HGB CONC 31.4 g/dL (32.0-36.0); MEAN PLATELET VOLUME 11.9 fL (7.9-10.8); MONOCYTES # (AUTO) 0.5 10^3/uL (0.0-1.0); MONOCYTES % (AUTO) 10.9 %; NEUTROPHILS # (AUTO) 3.5 10^3/uL (1.5-6.6); NEUTROPHILS % (AUTO) 69.9 %; PLT - PLATELET COUNT 179 10^3/uL (130-450); RED BLOOD COUNT 4.92 10^6/uL (4.20-5.40); RED CELL DISTRIBUTION WIDTH 15.9 % (12.0-15.0); WHITE BLOOD COUNT 4.9 x10^3/uL (4.8-10.8)
[2019-06-25 05:37] LABS: CALCIUM 8.4 mg/dL (8.5-10.3); CREATININE 0.7 mg/dL (0.4-1.0)
[2019-06-25] MEDS: LEVOTHYROXINE 25 MCG TABLET PO SCH (06:35)
[2019-06-25] MEDS: CLOPIDOGREL 75 MG TABLET PO SCH (08:58)
[2019-06-25] MEDS: POLYETHYLENE GLYCOL 3350 17 GM PACKET PO SCH (08:58)
[2019-06-25] MEDS: METOPROLOL SUCCINATE 25 MG TABLET PO SCH (08:58)
--- NOTE | 2019-06-25 14:44 | Discharge Plan ---
Discharge Plan for SNF / [facility]IN - Discharge Plan And Transition Orders Problem Reviewed?: Yes - SNF / LONGTERM Transition Orders Admit to (Facility): [facility] Discharge Diagnosis: Acute ischemic left MCA stroke - Stable. This is evident on the CT of the head which showed diffuse loss of sparks-white differentiation involving the posterior left MCA, left temporal, lateral occipital, and parietal lobes. The transverse dimensions measured approximately 7.5 x 3.2 cm. 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 this risk. Continue Plavix and Lipitor. Family has agreed to hospice and comfort measures. Chronic heart failure with reduced ejection fraction - Stable. Continue Metoprolol, Lisinopril. Hold Lasix to prevent dehydration as she appears euvolemic. Critical aortic valve stenosis - Stable. She has critical aortic stenosis with an aortic valve area less than 0.3. Family had chosen medical management prior to the stroke. Atrial fibrillation - Stable. She remains rate controlled at this time. Resume Metoprolol and Amiodarone. Hypothyroidism - Stable. Resume Synthroid. Medicare Certification Statement: I certify that [facility] is medically necessary on a continuing basis for any of the conditions for which she/he is receiving care during hospitalization. Notify PCP of admission and forward orders to primary provider for signature. Other Notification Orders: Call PCP immediately if patient develops dyspnea, chest pain/tightness or edema. Additional Bowel Program Orders: If no BM after 2 days, nurse may give M.O.M. 30ml PO PRN and/or ducolax Supp 1 [place] and/or KARISHMA 250mg P.O., and/or senna 1-2 tabs PO. On day 3 nurse may give repeat above order until residents constipation is resolved. Medication Orders: PLEASE REFER TO THE DISCHARGE MEDICATION LIST. - Diet Texture: Puree Liquids: [place] thick May have monthly special meal: Yes - Therapies | Activity Therapy: Evaluation | Treat if indicated: Swallowing / ST Activity: Activity as Tolerated Weight Bearing: Full Weight <[email or web address] [email or web address] - Last Filed: 06/25/19 14:50> - Discharge Plan And Transition Orders Problem Reviewed?: Yes - SNF / LONGTERM Transition Orders Under the care of (Name): health provider of [facility], and followup with hospice care Medicare Certification Statement: I certify that [facility] care is medically necessary on a continuing basis for any of the conditions for which she/he is receiving care during hospitalization. Notify PCP of admission and forward orders to primary provider for signature. Other Notification Orders: Call PCP immediately if patient develops dyspnea, chest pain/tightness or edema. Additional Bowel Program Orders: If no BM after 2 days, nurse may give M.O.M. 30ml PO PRN and/or ducolax Supp 1 [place] and/or KARISHMA 250mg P.O., and/or senna 1-2 tabs PO. On day 3 nurse may give repeat above order until residents constipation is resolved. Treatments & Other Orders: pt may followup hospice care and health provider of [facility] Medication Orders: PLEASE REFER TO THE DISCHARGE MEDICATION LIST. Insulin Orders?: No - Diet Type: Geriatric Texture: Dysphagia mech Liquids: [place] thick May have monthly special meal: Yes - Therapies | Activity Therapy: Evaluation | Treat if indicated: Swallowing / ST Activity: Activity as Tolerated <Schreiber - Last Filed: 06/26/19 10:03> - Discharge Plan And Transition Orders Disposition: 03 SNF DC/Xfer Condition: Serious Allergies and Adverse Reactions: Allergies Allergy/AdvReac Type Severity Reaction Status Date / Time No Known Drug Allergies Allergy Verified 06/23/19 15:16 Health Concerns: She was admitted for acute encephalopathy and found to have new large left-sided MCA stroke. The family has decided to proceed with comfort measures and hospice has been consulted. Plan of Treatment: We will continue Synthroid, Lipitor, Plavix, metoprolol, amiodarone. Will discontinue her Lasix at this time she appears euvolemic concerned she may become dehydrated if she has poor oral intake. This can always be resumed if deemed appropriate by hospice. Care Goals: Plan is to focus on her comfort. Assessment: Family is agreeable to this plan. - Medications New Prescriptions: Atorvastatin Calcium [Lipitor] 40 mg PO DAILY #10 tablet Clopidogrel [Plavix] 75 mg PO DAILY #30 tablet Metoprolol Succinate [Toprol Xl] 12.5 mg PO DAILY #15 tablet - Therapies | Activity Additional Instructions: pt may followup hospice care and health provider of [facility] in [facility] when pt is arrival to [facility]
--- NOTE | 2019-06-25 15:58 | PROVIDER PROGRESS NOTE ---
Subjective - Prog Note Date Prog Note Date: 06/25/19 - Subjective Subjective: Remains confused. She was able to eat yesterday without difficulty. She is sitting in bed comfortably. Denies pain. Current Medications - Current Medications Current Medications: Active Medications Acetaminophen (Tylenol) 500 mg PO Q4HR PRN PRN Reason: Pain or Fever > 38C (100.4F) Atorvastatin Calcium (Lipitor) 80 mg PO QPM [facility] Last Admin: 06/24/19 21:43 Dose: 80 mg Clopidogrel Bisulfate (Plavix) 75 mg PO DAILY [facility] Last Admin: 06/25/19 08:58 Dose: 75 mg Levothyroxine Sodium (Synthroid) 50 mcg PO QDAC [facility] Last Admin: 06/25/19 06:35 Dose: 50 mcg Metoprolol Succinate (Toprol Xl) 12.5 mg PO DAILY [facility] Last Admin: 06/25/19 08:58 Dose: 12.5 mg Mineral Oil (Cavilon) 1 applic TOP PRN PRN PRN Reason: Skin Care Last Admin: 06/23/19 19:47 Dose: 1 applic Phenol/Menthol (Chloraseptic) 2 sprays MM Q2HR PRN PRN Reason: Throat Pain Last Admin: 06/24/19 11:27 Dose: 2 sprays Polyethylene Glycol (Miralax) 17 gm PO DAILY [facility] Last Admin: 06/25/19 08:58 Dose: 17 gm Sodium Chloride (Normal Saline Flush 0.9%) 10 ml IVP PRN PRN PRN Reason: NEEDED PER PROVIDER ORDERS Sodium Chloride (Normal Saline Flush 0.9%) 10 ml IVP 0100,0900,1700 [facility] Last Admin: 06/25/19 08:58 Dose: 10 ml Acetaminophen 650 mg PO Q6HR PRN 11/28/16 Amiodarone HCl 100 mg PO DAILY 11/28/16 Levothyroxine Sodium 50 mcg PO QDAC 06/24/19 Objective - Vital Signs/Intake & Output Reviewed Vital Signs: Yes Vital Signs: Vital Signs x48h Temp Pulse Resp BP Pulse Ox 06/25/19 11:54 36.5 C 68 14 130/71 96 06/25/19 08:00 36.6 C 72 14 133/78 H 94 Intake & Output: Intake & Output 06/22/19 06/23/19 06/24/19 06/25/19 23:59 23:59 23:59 23:59 Intake Total 0 600 170 Output Total 200 175 2 Balance -200 425 168 - Objective General Appearance: positive: No acute distress, Alert Eyes Bilateral: positive: Normal inspection ENT: positive: ENT inspection nml Neck: positive: Nml inspection Respiratory: positive: No respiratory distress. negative: Wheezes, Rales, Rhonchi Cardiovascular: positive: Regular rate & rhythm, Systolic murmur. negative: Tachycardia, Bradycardia Abdomen: positive: Non-tender, No distention. negative: Tenderness Skin: positive: No rash, Warm, Dry Extremities: positive: No pedal edema Neurologic/Psychiatric: positive: Other (She is able to move all 4 extremities. She is disoriented and unable to answer questions regarding orientation.) - Lab Results Fish Bones: 06/25/19 04:40 06/25/19 04:40 Other Labs: Lab Results x24hrs 06/25/19 06/25/19 Range/Units 04:40 04:40 WBC 4.9 (4.8-10.8) x10^3/uL RBC 4.92 (4.20-5.40) 10^6/uL Hgb 13.6 (12.0-16.0) g/dL Hct 43.3 (37.0-47.0) % MCV 88.0 (81.0-99.0) fL MCH 27.6 (27.0-31.0) pg MCHC 31.4 L (32.0-36.0) g/dL RDW 15.9 H (12.0-15.0) % Plt Count 179 (130-450) 10^3/uL MPV 11.9 H (7.9-10.8) fL Neut # (Auto) 3.5 (1.5-6.6) 10^3/uL Lymph # (Auto) 0.7 L (1.5-3.5) 10^3/uL [place] # (Auto) 0.5 (0.0-1.0) 10^3/uL Eos # (Auto) 0.2 (0.0-0.7) 10^3/uL Baso # (Auto) 0.1 (0.0-0.1) 10^3/uL Absolute Nucleated RBC 0.00 x10^3/uL Nucleated RBC % 0.0 /100WBC Sodium 141 (135-145) mmol/L Potassium 3.7 (3.5-5.0) mmol/L Chloride 104 (101-111) mmol/L Carbon Dioxide 31 (21-32) mmol/L Anion Gap 6.0 (6-13) BUN 23 H (6-20) mg/dL Creatinine 0.7 (0.4-1.0) mg/dL Estimated GFR (MDRD) 79 L (>89) Glucose 79 (70-100) mg/dL Calcium 8.4 L (8.5-10.3) mg/dL ABX Reporting Has patient been on IV antibiotics over the past 48 hours?: No Assessment/Plan - Problem List (1) Acute ischemic left MCA stroke Impression: She has a large left MCA stroke. No focal motor deficits but she does have Br oca speech deficit. Family has decided to pursue comfort measures. Hospice has been consulted. She will be going to [facility] on [place] tomorrow. Continue Plavix and Lipitor. (2) Encephalopathy acute Impression: This is secondary to above. (3) Chronic HFrEF (heart failure with reduced ejection fraction) Impression: She appears euvolemic. Continue metoprolol and lisinopril. We will hold off on Lasix as she is euvolemic and she is at risk of being dehydrated. (4) Critical aortic valve stenosis Impression: Aortic valve area is less than 0.3. Family chose medical management prior to the stroke. (5) Atrial fibrillation Impression: She remains rate controlled. Continue metoprolol and amiodarone. (6) Hypothyroidism Impression: Continue Synthroid.
[2019-06-26] MEDS: SODIUM CHLORIDE FLUSH 0.9% 10 ML SYRINGE IVP SCH ×2 (01:33→08:38)
[2019-06-26] MEDS: ATORVASTATIN 40 MG TABLET PO SCH (01:34)
[2019-06-26] MEDS: LEVOTHYROXINE 25 MCG TABLET PO SCH (06:36)
[2019-06-26] MEDS: METOPROLOL SUCCINATE 25 MG TABLET PO SCH (08:38)
[2019-06-26] MEDS: POLYETHYLENE GLYCOL 3350 17 GM PACKET PO SCH (08:38)
[2019-06-26] MEDS: CLOPIDOGREL 75 MG TABLET PO SCH (08:38)
--- NOTE | 2019-06-26 10:04 | DISCHARGE SUMMARY ---
"Discharge Summary Admit Date: 06/23/19 Discharge Date: 06/26/19 Discharging Provider: HARVEY Primary Care Provider: Dr. Bowman Condition at Discharge: Serious Discharge Disposition: SNF DC/Xfer Discharge Facility Name: [facility] - DIAGNOSES Admission Diagnoses: (1) Encephalopathy acute (2) Chronic HFrEF (heart failure with reduced ejection fraction) (3) Critical aortic valve stenosis (4) Atrial fibrillation (5) Hypothyroidism Discharge Diagnoses with Status of Each Condition: (1) Acute ischemic left MCA stroke pt has a large left MCA stroke. Family has decided to pursue comfort measures and hospice. Hospice has been consulted. She will be going to [facility] on [place] Continue Plavix and Lipitor. (2) Encephalopathy acute This is likely secondary to above. continue hospice care (3) Chronic HFrEF (heart failure with reduced ejection fraction) stable. pt appears euvolemic. Continue metoprolol and lisinopril. continue hospice care (4) Critical aortic valve stenosis Aortic valve area is less than 0.3. Family chose medical management prior to the stroke. continue hospice care (5) Atrial fibrillation stable. pt remains rate controlled. Continue metoprolol and amiodarone. (6) Hypothyroidism stable (7)hospice care Family has decided to pursue comfort measures and hospice. Hospice has been consulted. pt is d/c to [facility] and followup hospice care. - HPI History of Present Illness: refer from Dr. Marroquin's HPI on 06/23/19 This is an 88-year-old female with a past medical history significant for CHF with reduced ejection fraction, severe aortic stenosis, dementia, and paroxysmal atrial fibrillation who presents from [facility] due to confusion. History is obtained from the daughter as the patient is altered and does not answer questions appropriately. Her daughters tell me that she was in her usual state of health up until this morning. They noticed that she was quite confused and did not eat her breakfast. Her last known normal was last night when one of her daughters spoke to her on the phone. She noted that patient was slightly confused but she was not nearly as altered as she is today. She reports her mother did not have any complaints for the past few days and has been doing well. They do note that she has not been eating or drinking much over the past few weeks.They have never seen their mother like this before. They bring her POLST form with them today which states that she is a DNR with limited interventions. In the emergency department, her vitals were unremarkable. Her labs were also unremarkable except for troponin in the 20s. Her EKG revealed sinus rhythm with LVH. No obvious ST segment changes. It is relatively unchanged compared to her last EKG. Given her altered mental status without clear etiology. She will be admitted for further management. - CONSULTS | PROCEDURES Consultations: hospice care provider Procedures: followup hospice care - HOSPITAL COURSE Hospital Course: pt was admitted for confused and AMS. pt was found to have a large left MCA stroke in CT. pt has hx of severe aortic stenosis. Family has decided to pursue comfort measures and hospice. MRI was not done based on pt's family's choice. hospice was consulted. pt was prescribed lipitor, Plavix, metoprolol, and d/c to [facility], and followup hospice care. 1) Acute ischemic left MCA stroke pt has a large left MCA stroke. Family has decided to pursue comfort measures and hospice. Hospice has been consulted. She will be going to [facility] on [place] Continue Plavix and Lipitor. (2) Encephalopathy acute This is likely secondary to above. continue hospice care (3) Chronic HFrEF (heart failure with reduced ejection fraction) stable. pt appears euvolemic. Continue metoprolol and lisinopril. continue hospice care (4) Critical aortic valve stenosis Aortic valve area is less than 0.3. Family chose medical management prior to the stroke. continue hospice care (5) Atrial fibrillation stable. pt remains rate controlled. Continue metoprolol and amiodarone. (6) Hypothyroidism stable (7)hospice care Family has decided to pursue comfort measures and hospice. Hospice has been consulted. pt is d/c to [facility] and followup hospice care. - ALLERGIES Allergies/Adverse Reactions: Allergies Allergy/AdvReac Type Severity Reaction Status Date / Time No Known Drug Allergies Allergy Verified 06/23/19 15:16 - MEDICATIONS Home Medications: Ambulatory Orders Medication Instructions Recorded Confirmed Acetaminophen 650 mg PO Q6HR PRN 11/28/16 06/24/19 Amiodarone HCl 100 mg PO DAILY 11/28/16 06/24/19 Lisinopril 5 mg PO DAILY #30 tablet 06/06/19 06/24/19 Levothyroxine Sodium 50 mcg PO QDAC 06/24/19 06/24/19 Clopidogrel [Plavix] 75 mg PO DAILY #30 tablet 06/25/19 Metoprolol Succinate [Toprol Xl] 12.5 mg PO DAILY #15 tablet 06/25/19 Atorvastatin Calcium [Lipitor] 40 mg PO DAILY #10 tablet 06/26/19 - PHYSICAL EXAM AT DISCHARGE General Appearance: positive: No acute distress, Alert. negative: Lethargic Eyes Bilateral: positive: Normal inspection, PERRL, No lid inflammation ENT: positive: ENT inspection nml, Pharynx nml, No signs of dehydration. negat jesús: Purulent nasal drainage Neck: positive: Nml inspection, Thyroid nml, No JVD, Trachea midline. negative: Thyromegaly, Lymphadenopathy (R), Lymphadenopathy (L), Stiff neck, Tracheal deviation Respiratory: positive: Chest non-tender, No respiratory distress, Breath sounds nml. negative: Wheezes, Rales, Rhonchi Cardiovascular: positive: Regular rate & rhythm, Systolic murmur. negative: Irregularly irregular, Extrasystoles, Tachycardia, Bradycardia Peripheral Pulses: positive: 2+ Abdomen: positive: Non-tender, No organomegaly, Nml bowel sounds, No distention Back: positive: Nml inspection Skin: positive: Color nml, No rash, Warm, Dry. negative: Cyanosis, Diaphoresis, Pallor Extremities: positive: Non-tender Neurologic/Psychiatric: positive: Sensation nml. negative: Sensory loss, Facial droop - LABS Result Diagrams: 06/25/19 04:40 06/25/19 04:40 - FOLLOW UP Follow Up: pt may followup hospice care, and followup health provider of [facility] - TIME SPENT Time Spent in Discharge (Minutes): 50"
[2019-06-26 13:24] VITALS: BP 106/59
== END 2019-06-26 13:45 | disposition home or self-care (01) ==
LOC: EDUNIT# → ED 15:11 → MS2 17:30 → OBSVTOIN 19:56 → INTOOBSV 19:56
PROVIDERS: ADMIT Internal Medicine; ATTEND Nurse Practitioner Gerontology
DX: I63.9 Cerebral infarction, unspecified (principal); G93.49 Other encephalopathy; R40.2422 Glasgow coma scale score 9-12, at arrival to emergency department; R47.81 Slurred speech; R47.89 Other speech disturbances; F03.90 Unspecified dementia, unspecified severity, without behavioral disturbance, psychotic disturbance, mood disturbance, and anxiety; I35.0 Nonrheumatic aortic (valve) stenosis; I48.0 Paroxysmal atrial fibrillation; I11.0 Hypertensive heart disease with heart failure; I50.22 Chronic systolic (congestive) heart failure; E03.9 Hypothyroidism, unspecified; I25.10 Atherosclerotic heart disease of native coronary artery without angina pectoris; I25.2 Old myocardial infarction; F32.9 Major depressive disorder, single episode, unspecified; F41.9 Anxiety disorder, unspecified; Z51.5 Encounter for palliative care; Z66 Do not resuscitate; Z79.899 Other long term (current) drug therapy; Z79.82 Long term (current) use of aspirin
CPT/HCPCS: 36415; 70450; 71045; 80048; 80053; 81003; 82140; 82607; 83605; 83690; 83735; 83880; 84439; 84443; 84484; 85025; 85610; 87040; 92610; 93005; 97161; 99285; A6250; A9270; G0378; 81001; 87086